=== PATIENT | male | born 1975 | race Caucasian/White ===

== ENCOUNTER 2021-07-17 13:09 | Outpatient (CLI) | payer MEDICARE, SELFPAY ==
--- NOTE | ~2021-07-17 | MR_ITS ---
EXAMINATION: MR lumbar spine wo con DATE: 07/17/2021 13:53 INDICATION: Low back pain. TECHNIQUE: Magnetic resonance imaging (MRI) of the lumbar spine was performed without intravenous con trast. Sequences included sagittal T2-weighted FSE, sagittal T2-weighted FS FSE, sagittal T1-weighted FSE, and axial T2-weighted FSE. COMPARISON: Lumbar spine radiographs 11/05/2017 FINDINGS: There is 18 degrees levoscoliosis of lumbar spine. There is 4 mm anterolisthesis of L3 on L 4. There is mild chronic anterior wedging of T12 vertebral body. There are Schmorl's nodes in the inf erior endplates of T11 and T12. There is severely decreased disc height at L3-L4 with mild chronic he ight loss of L3 and L4 vertebral bodies. There is severely decreased disc height at L5-S1 with endpla te remodeling. The distal spinal cord signal intensity is normal. The conus medullaris is at L1. The following disc levels are specifically discussed: L1-L2: There is a left foraminal protrusion. There is mild bilateral facet joint osteoarthritis. Ther e is mild left neural foraminal stenosis. There is no central canal stenosis. L2-L3: The disc is mildly bulging. There is mild bilateral facet joint osteoarthritis. There is mild bilateral neural foraminal stenosis. There is no central canal stenosis. L3-L4: The disc is bulging and has an annular fissure. There is severe right and moderate left facet joint osteoarthritis. There is severe right and moderate left neural foraminal stenosis. There is mil d central canal stenosis. L4-L5: The disc is bulging and has an annular fissure. There is mild bilateral facet joint osteoarthr itis. There is mild right and moderate left neural foraminal stenosis. There is mild central canal st enosis. L5-S1: The disc is bulging and has an annular fissure. There is severe bilateral facet joint osteoart hritis. There is mild right and moderate left neural foraminal stenosis. There is mild central canal stenosis. IMPRESSION: 1. Severe lumbar spondylosis, worsened from 11/05/2017. Reviewed, dictated and finalized at location A. 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
== END 2021-07-17 13:10 ==
PROVIDERS: PCP Family Medicine; Visit Provider Nurse Practitioner Family
DX: M47.896 Other spondylosis, lumbar region (principal)
CPT/HCPCS: 72148

== ENCOUNTER 2022-01-13 13:28 | Outpatient (CLI) | payer MEDICARE, MEDICAID, SELFPAY ==
--- NOTE | ~2022-01-13 | PE_ITS ---
EXAMINATION: PET skull to mid thigh DATE: 01/13/2022 15:31 INDICATION: Lung nodule. TECHNIQUE: Blood glucose level was 185 mg/dL. 10.547 mCi of 18-fluorodeoxyglucose (18-FDG) was admini stered i.v. Low dose computed tomography (CT) images were acquired from the base of the brain to the proximal thighs for attenuation correction and anatomic localization. Positron emission tomography (P ET) images were acquired in the same distribution beginning 68 minutes after injection. Images includ ing fused PET/CT images were reconstructed in axial, coronal, and sagittal planes. Automated exposure control technique was employed. The dose-length product was 966.27mGy-cm. COMPARISON: Chest CT dated 05/27/2018 FINDINGS: Head/neck: There is symmetric increased activity in the oral cavity, laryngeal muscles and ocular muscles withou t CT correlate, likely physiologic. There is extensive muscular activity without radiologic correlate in the neck, extremities and in the thoracic and lumbar paraspinal musculature. The latter demonstra orestes some asymmetry which is likely related to a mild lumbar levoscoliosis. No pathologically enlarged cervical lymphadenopathy or suspicious foci of increased FDG uptake in the visualized head or neck. Chest: Moderate emphysema. No suspicious pulmonary nodules, pneumonia, pulmonary edema or pleural effusion. Heart size is normal. No pericardial effusion. Right internal jugular central venous port catheter wi th distal tip in the high right atrium. No pathologically enlarged or FDG avid thoracic lymphadenopat hy. Abdomen/pelvis/proximal thighs: Physiologic renal accumulation and excretion of FDG activity in the kidneys, bladder and along portio ns of ureters. Normal degree and heterogenous pattern of increased uptake throughout the liver withou t radiologic correlate or dominant FDG avid lesion. The gallbladder, pancreas, spleen and bilateral a drenal glands are normal. Minimal uptake scattered throughout the bowels without radiologic correlate , also likely physiologic. No other abnormal foci of increased FDG uptake or pathologically enlarged lymphadenopathy in the abdomen, pelvis or proximal thighs. Musculoskeletal: Extensive likely physiologic muscular activity as previously noted. Severe lumbar spondylosis with pr ominent degenerative endplate changes at L3-L4 and L5-S1. Chronic nonunited sternal fracture. No susp icious lytic, blastic or FDG avid bone lesions. IMPRESSION: 1. No suspicious pulmonary nodules or FDG avid lesions suspicious for malignancy. Reviewed, dictated and finalized at location A. IMPRESSION: 1. No suspicious pulmonary nodules or FDG avid lesions suspicious for malignanc y.
[2022-01-13 14:00] LABS: Glucose Point of Care 185 mg/dl (65-105)
== END 2022-01-13 13:29 | disposition home or self-care (01) ==
PROVIDERS: PCP Family Medicine; Visit Provider Nurse Practitioner
DX: R91.1 Solitary pulmonary nodule (principal)
CPT/HCPCS: 78815; A9552

== ENCOUNTER 2024-01-31 13:43 | Outpatient (CLI) | payer MEDICARE, MEDICAID, SELFPAY ==
--- NOTE | ~2024-01-31 | XR_ITS ---
EXAMINATION: XR shoulder LT min 2V DATE: 01/31/2024 14:06 INDICATION: Left shoulder pain. TECHNIQUE: 4 views of left shoulder were obtained. COMPARISON: None. FINDINGS: Alignment is normal. No fracture. There is severe osteoarthritis of glenohumeral joint. Acr omioclavicular joint is normal. A left chest pacer is noted. Median sternotomy wires are noted. IMPRESSION: 1. Severe osteoarthritis of glenohumeral joint. Reviewed, dictated and finalized at location A.
== END 2024-01-31 13:44 | disposition home or self-care (01) ==
DX: M19.012 Primary osteoarthritis, left shoulder (principal)
CPT/HCPCS: 73030

== ENCOUNTER 2024-09-18 14:59 | Emergency (ER) | payer MEDICARE, MEDICAID, SELFPAY ==
[2024-09-18 15:01] VITALS: BP 102/75; PULSE 76; RESP 12; TEMP 36.7; O2SAT 96
--- NOTE | 2024-09-18 15:08 | ECG_ITS ---
Test Date: 2024-09-18 15:14:11 Measurements Intervals [place] Rate: P: 0 OR: 0 QRS: 0 QRSD: 0 T: 0 QT: 0 QTc: 0 Interpretive Statements SINUS RHYTHM CONSIDER INFERIOR INFARCT, AGE INDETERMINATE BORDERLINE T WAVE ABNORMALITY- ANTERIOR LEADS BASELINE ARTIFACT- I, II, AVR, AVL ABNORMAL ECG No previous ECG available for comparison Electronically Signed On 09-18-2024 16:57:20 CDT by Payam Aguilera D.O.
--- NOTE | 2024-09-18 15:24 | PC.NURSE ---
Pt declined to be seen due to Im not in AFIB, so I dont need to be here. Pt had parents pick him up. Pt out via w/c to car. IV removed as requested.
--- OUTSIDE RECORDS SUMMARY | 2024-09-18 17:09 | XMS_ITS | Patient Health Record ---
Author Organization [facility] Address [address] [facility] [address] [facility] [address] [place] [address] Care Team Providers Care Learning Operations Specialist Name Role Phone Manohar Porter Unavailable [phone] REASON FOR REFERRAL No Information MEDICATIONS Medication SIG (Take, Route, Fr equency, Duration) Notes Start Date End Date Status Sodium Chloride 1 GM TAKE 3 TABLETS BY M OUT THREE TIMES DAILY for 41 Active Lasix 20 MG 1 tablet Orally Once a day for 90 day(s) 10/15/2023 Active Synthroid 100 MCG 1 tablet in the morn ing on an empty stomach Orally Once a day for 90 days 06/18/2023 Active SOCIAL HISTORY Sex Assigned At : Social History Observation Description Sex Assigned At Male PROBLEMS Problem Type ICD Code Onset Dates Problem Status W/U Status Risk SNOMED Code Notes Problem Hypo-osmolality and hyponatremia (E87.1) Active confirmed Hypo-osmolality and or hyponatremia (930902120) Problem Anxiety disorder, unspecified (F41.9) Active confirmed Anxiety disorde r (972209933) Problem Chronic kidney disease, stage 1 (N18.1) Active confirmed Chronic kidney disease stage 1 (936608483) Problem Edema, unspecified (R60.9) Active confirmed Edema (09632310) Problem Other proteinuria (R80.8) Active confirmed Proteinuria (75535174) Encounters Encounter Location Date Provider Diagnosis [facility] [address] [address] 10/15/2023 Manohar Porter Hypo-osmolality and hyponatremia E87.1 ; Anxiety disorder, unspecified F41.9 ; Edema, unspecified R60.9 and Other proteinuria R80.8 [facility] [address] [address] 01/19/2024 Manohar Porter [facility] [address] [facility] [address] [place] [address] 01/21/2024 Manohar Porter Hypo-osmolality and hyponatremia E87.1 ; Chronic kidney disease, stage 1 N18.1 ; Anemia, unspecified D64.9 ; Anxiety disorder, unspecified F41.9 ; Edema, unspecified R60.9 and Other proteinuria R80.8 [facility] [address] [place] [address] 02/24/2024 Manohar Porter [facility] [address] [address] 02/25/2024 Manohar Porter [facility] [address] [address] 03/10/2024 Manohar Porter [facility] [address] [address] 10/15/2023 Manohar Porter ASSESSMENTS Encounter Date Diagnosis Assessment Notes Treatment Notes Treatment Clinical Notes Section Notes 10/15/2023 Hypo-osmolality and hyponatremia (ICD-10 - E87.1) 01/21/2024 Hypo-osmolality and hyponatremia (ICD-10 - E87.1) 01/21/2024 Chronic kidney disease, stage 1 (ICD-10 - N18.1) 01/21/2024 Anemia, unspecified (ICD-10 - D64.9) 10/15/2023 Anxiety disorder, unspecified (ICD-10 - F41.9) 10/15/2023 Edema, unspecified (ICD-10 - R60.9) 01/21/2024 Anxiety disorder, unspecified (ICD-10 - F41.9) 01/21/2024 Edema, unspecified (ICD-10 - R60.9) 10/15/2023 Other proteinuria (ICD-10 - R80.8) 01/21/2024 Other proteinuria (ICD-10 - R80.8) PLAN OF TREATMENT No Information
--- OUTSIDE RECORDS SUMMARY | 2024-09-18 17:09 | XMS_ITS ---
Author Organization [facility] Address [address] [place] [address] Care Team Providers Care Coach Name Role Phone Manohar Porter Unavailable [phone] SOCIAL HISTORY Sex Assigned At : Social History Observation Description Sex Assigned At Male Encounters Encounter Location Date Provider Diagnosis [facility] [address] [place] [address] [address] [place] [address] 02/25/2024 Manohar Porter PLAN OF TREATMENT No Information Progress Notes * Jd ENRIQUEZDOB: [birth year] (49 yo M)Acc No.[id number]:02/25/2024 Progress Notes Patient: Jd ENRIQUEZ Provider: MD DYAN, Dianne.Rosa.C.P, F.A.S.N. :1975 Age:49 Y Sex:Male Date:02/25/2024 Address:[address] [place] [address] Subjective: * Chief Complaints: * * Medical History: Objective: Assessment: Plan: * Treatment: * Billing Information: * Visit Code: * Procedure Codes: * Sign off status: Pending * Provider: MD DYAN, Dianne.Rosa.C.P, F.A.S.N. Date: 02/25/2024
--- OUTSIDE RECORDS SUMMARY | 2024-09-18 17:09 | XMS_ITS | Clinical Summary ---
Author Organization [facility] Address [address] [place] [address] Care Team Providers Care Lace Sewer Name Role Phone Ascencion Crandall NP Primary Care Provider [phone] Mable Castaneda MD Unavailable [phone] Haim Clement MD Unavailable Miguel Jara MD, Sunil P. Unavailable [phone] Rui Brizuela MD Unavailable Eddi Jiménez NP Unavailable Allergies Active Allergy Reactions Criticality Noted Date Comments Baclofen Muscle pain Medium 04/30/2022 Bupropion Anxiety Low 11/13/2010 Buspirone Rash Medium 09/02/2020 Carisoprodol Mental status changes,Unknown Low 11/13/2010 sedated Celecoxib Nausea And Vomiting 11/13/2010 Phenytoin Rash Medium 05/12/2021 Lamotrigine Hives Medium 08/07/2020 Naproxen Nausea And Vomiting 11/13/2010 Gabapentin Other (See comments) Low 08/07/2020 Patient was out of it/drooled Nsaids (Non-Steroidal Anti-Inflammatory Drug) Stomach upset,Nausea And Vomiting,Unknown Low 11/13/2010 Phenobarbital Other (See comments) Low 06/18/2022 Tramadol Headache Low 11/13/2010 Varenicline Mental status changes Low 11/13/2010 suicidal Medications Viibryd 40 mg tabletIndicatio ns:major depressive disorder Take 1 tablet by mouth daily 07/26/19 21 Active ziprasidone (GEODON) 80 mg capsuleIndicati ons:Depression Treatment Adjunct Take 1 capsule by mouth 2 (two) times a day with meals 07/26/19 21 Active vitamin B complex capsule Take 1 capsule by mouth daily Active esomeprazole DR (NexIUM) 40 mg capsuleIndicati ons:Treatment of Non-Bleeding Gastric Disorder Take 1 capsule by mouth daily before breakfast Active calcium carbonate (TUMS) 500 mg (200 mg elemental) chewable tablet Take 2 tablet/chew tab (1,000 mg total) by mouth every 4 (four) hours as needed (gas pain) Active acetaminophen (TYLENOL) 325 mg tablet Take 2 tablets (650 mg total) by mouth every 6 (six) hours as needed for pain or fever (mild pain: -07/31) Active albuterol 2.5 mg /3 mL (0.083 %) nebulizer solution 04/10/20 22 Active albuterol HFA (PROVENTIL HFA,VENTOLIN HFA,PROAIR HFA) 90 mcg/actuation inhalerIndicati ons:Chronic Obstructive Pulmonary Disease 2 puffs 3 times day PRN 06/26/19 25 Active atorvastatin (LIPITOR) 10 mg tabletIndicatio ns:hyperlipidem ia atorvastatin 10 mg tablet Take 1 tablet every day by oral route for 90 days. Active vitamin E 100 unit/0.25 mL dropsIndication s:Vitamin E Deficiency Apply 1 drop topically daily Active OneTouch Verio Flex meter [facility] 05/29/19 23 Active cholecalciferol (VITAMIN D-3) 5,000 unit capsuleIndicati ons:Vitamin D Deficiency Take 5,000 Units by mouth daily Active OneTouch Delica Plus Lancet 33 gauge [facility] 05/29/19 23 Active triamcinolone (KENALOG) 0.1 % cream Active morphine ER (MS CONTIN) 15 mg 12 hr tabletIndicatio ns:severe chronic pain requiring long-term opioid treatment Take 1 tablet (15 mg total) by mouth 2 (two) times a day 6 tablet 06/25/19 23 Active apixaban (ELIQUIS) 5 mg tabletIndicatio ns:atrial fibrillation Take 1 tablet (5 mg total) by mouth every 12 (twelve) hours 06/25/19 Active sodium chloride 1 gram tablet Take 1 tablet (1 g total) by mouth 3 (three) times a day with meals 06/25/19 Active Additional Information Patient taking differently: 3 goral 3 times daily with meals, Reported on 05/09/2024 senna (SENOKOT) 8.6 mg tabletIndicatio ns:constipation Take 1 tablet by mouth 2 (two) times a day 06/25/19 23 Active docusate sodium (COLACE) 100 mg capsuleIndicati ons:constipatio n Take 1 capsule (100 mg total) by mouth 2 (two) times a day 06/25/19 23 Active metoprolol tartrate (LOPRESSOR) 25 mg immediate release tablet Take 0.5 tablets (12.5 mg total) by mouth 2 (two) times a day 06/25/19 23 Active clonazePAM (KlonoPIN) 1 mg tabletIndicatio ns:atonic seizure,Essenti al Tremor Take 1 tablet by mouth 3 (three) times a day 02/08/20 Active budesonide-glyc opyr-formoterol 160-9-4.8 mcg/actuation HFA aerosol inhalerIndicati ons:Bronchospas m Prevention with COPD INHALE 2 PUFFS BY MOUTH TWICE DAILY DIRECTED Active ocrelizumab (Ocrevus) 30 mg/mL solution Infuse 10 mL (300 mg total) into a venous catheter Active EPINEPHrine 0.3 mg/0.3 mL auto-injection syringe ADMINISTER 0.3 ML IN THE MUSCLE 1 TIME NEEDED FOR ANAPHYLAXIS 05/06/20 Active levothyroxine (Synthroid) 100 mcg tabletIndicatio ns:hypothyroidi sm Take 100 mcg by mouth video system repairer before breakfast 06/18/19 24 Active mepolizumab (Nucala) 100 mg/mL auto-injector 05/06/20 23 Active methocarbamoL (ROBAXIN) 750 mg tabletIndicatio ns:Muscle Spasm Take 1 tablet by mouth every 8 (eight) hours 12/18/19 24 Active benztropine (COGENTIN) 0.5 mg tabletIndicatio ns:tremors Take 1 tablet by mouth 2 (two) times a day 04/07/20 24 Active eslicarbazepine (Aptiom) 200 mg tabletIndicatio ns:Focal Epilepsy Take 1 tablet (200 mg total) by mouth daily 90 tablet 3 05/22/20 24 Active lacosamide (VIMPAT) 150 mg tabletIndicatio ns:Status Epilepticus Take 1 tablet (150 mg total) by mouth 2 (two) times a day 180 tablet 3 05/22/20 24 Active pregabalin (LYRICA) 100 mg capsuleIndicati ons:Postherpeti c Neuralgia TAKE 2 CAPSULES EVERY MORNING TAKE 2 CAPSULES IN THE AFTERNOON, AND TAKE 2 CAPSULES AT NIGHT 180 capsule 5 06/22/19 25 Active metoprolol tartrate (LOPRESSOR) 25 mg immediate release tabletIndicatio ns:hypertension Take 12.5 mg by mouth 2 (two) times a day. Indications: high blood pressure Active sodium chloride 1 gram tabletIndicatio ns:hyponatremia Take 3 g by mouth 3 (three) times a day. Indications: hyponatremia Active modafiniL (PROVIGIL) 100 mg tablet TAKE 1 TABLET(100 MG) BY MOUTH DAILY 30 tablet 2 09/12/19 25 Active modafiniL (PROVIGIL) 100 mg tablet Take 1 tablet (100 mg total) by mouth daily 30 tablet 08/16/19 25 2024 Discontinued Active Problems Problem Noted Date Diagnosed Date Left shoulder pain 02/16/2024 Assessment & Plan (02/16/2024 12:57 PM CDT): Patient with left shoulder pain over last couple of months that radiates down to his left hand. Exam is notable for increased cracking with movement of his left shoulder. He reportedly underwent x-rays as an outpatient for further evaluation with no definitive etiology found. Suspect underlying osteoarthritis contributing to his symptoms. Referral to Orthopedic surgery for further evaluation. Aftercare following surgery of the circulatory s ystem 07/08/2022 Status post aortic valve replacement 07/08/2022 Status post mitral valve repair 07/08/2022 Mild protein-calorie malnutrition 06/08/2022 Endocarditis 06/05/2022 Complex partial seizures jasson 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-clonic seizures 11/28/2021 Assessment & Plan (02/16/2024 12:55 PM CDT): Patient with underlying seizure disorder. He is currently on Vimpat 150 mg b.i.d. and Aptiom 200 mg every other day. He reports good control of the seizures and has not had a seizure in a number of years. Multiple sclerosis 08/07/2020 Assessment & Plan (05/09/2024 4:57 PM GUIDE TOUR): The patient is presenting for follow up of his multiple sclerosis. He continues to report ongoing symptoms similar to his last visit. Specifically his most prominent symptom is fatigue and generalized weakness. He was brain MRI demonstrates an enhancing lesion within his left temporal lobe. We discussed initiating treatment for his MS to help with the inflammation. The patient is agreeable to starting a medication. Given his prior history of endocarditis he was at risk for infections and therefore recommended Vumerity as an option given its better side effect profile for infections. I will provide the patient with a pamphlet on this medication and have him fill out paperwork to start. We discussed the possible side effects including flushing and GI upset. I counseled him to take aspirin 10 minutes before the Vumerity if he notices flushing to help with that side effect. The patient has an upcoming appointment planned with Orthopedic surgery for evaluation for left shoulder surgery. Patient was referred to physical therapy for further evaluation of his weakness. However, he has been having difficulties obtaining a ride to [facility]. We will reach out to our home health team to see if we can coordinate home physical therapy for him given his difficulty with logistics. Assessment & Plan (02/16/2024 12:54 PM CDT): Patient presenting for further evaluation of his multiple sclerosis. He was diagnosed in 2005 with his initial symptoms consisting of fatigue. He was treated with Copaxone Rebif for a period of time and more recently was on Ocrevus. His symptoms over time have consisted of progressive difficulty with walking, severe pain in his bilateral lower and upper extremities, muscle spasms, and headaches. Most recent brain MRI in February 2023 demonstrated a possible enhancing lesion of cerebellum although difficult to determine on personal review given motion artifact. We will obtain a repeat brain, cervical, and thoracic MRI for further evaluation. Patient will need these to be coordinated with our Cardiology team given his pacemaker. We will refer the patient to physical therapy for further management of his weakness. Spasticity 08/07/2020 Radiculopathy, lumbosacral region 08/07/2020 Chronic bilateral low back pain with bilateral s ciatica 08/07/2020 Spinal stenosis of lumbar re gion without neurogenic claudication 08/07/2020 Sacroiliitis 08/07/2020 Long-term current use of opiate analgesic 2020 Neuropathy 09/19/2019 Assessment & Plan (05/09/2024 4:57 PM GUIDE TOUR): The patient has chronic pain in his bilateral lower extremities and left upper extremity. Previously prescribed Lyrica 200 mg 3 times a day which he finds beneficial. We will continue this medication. Assessment & Plan (02/16/2024 12:57 PM CDT): Patient with longstanding chronic pain in his bilateral lower extremities left upper extremity. He has trialed multiple medications in the past and is currently on pregabalin 100 mg t.i.d. and MS Contin b.i.d. 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 MRI of his lumbar spine demonstrates degenerative disc disease with neuroforaminal stenosis. We will refer the patient for further evaluation by our pain management team. We will also increase his pregabalin to 200 mg in the morning, 100 mg at lunch, and 200 mg at night for ongoing pain control. We will also obtain blood work to evaluate for other causes of peripheral neuropathy. Encounters Date Type Department Care Team Description 09/04/2024 Telephone [facility] [address] [place] [phone] Michaela Lynch RN 08/16/2024 Telephone [facility] [address] [place] [phone] Jerri Segura LPN 08/16/2024 Telephone [facility] [address] [place] [phone] Cresencio Shrestha MD Med Management (Modafinil 100mg) 08/15/2024 Telephone [facility] [address] [place] [phone] Jerri Segura LPN 08/02/2024 12:00 PM CDT Home Care Visit [address] [place] [address] Marie Pleitez, PT PT OASIS DISCHARGE 08/01/2024 Orders Only [facility] ADMIT [address] [place], [place] [id number] Samina Ruby MD 08/01/[address] [place] [address] Radha Severino RN 07/27/2024 1:30 PM GUIDE TOUR Home Care Visit [address] [place] [address] Jennifer Brewer, OT OT REASSESSMENT 07/27/2024 Home Care Visit [address] [place] [address] Harvinder Neil, DRAG CAR RACER CASE COMMUNICATION 07/26/2024 Orders Only [facility] [address] [place] [address] Cresencio Shrestha MD 07/24/2024 12:30 PM GUIDE TOUR Home Care Visit [address] [place] [address] Marie Pleitez, PT PT HOME VISIT 07/21/2024 Home Care Visit [address] [place] [address] Rosina Latham, OT CASE COMMUNICATION 07/18/2024 Home Care Visit [address] [place] [address] Rosina Latham, OT CASE COMMUNICATION 07/17/2024 1:15 PM GUIDE TOUR Home Care Visit [address] [place] [address] Marie Pleitez, PT PT REASSESSMENT 07/13/2024 Home Care Visit [address] [place] [address] Rosina Latham, OT CASE COMMUNICATION 07/12/2024 Home Care Visit [address] [place] [address] Marie Pleitez, PT TELEPHONE ENCOUNTER 07/07/2024 10:45 AM GUIDE TOUR Home Care Visit [address] [place] [address] Marie Pleitez, PT PT HOME VISIT 07/06/2024 1:15 PM GUIDE TOUR Home Care Visit [address] [place] [address] Annel Colindres COTA OT HOME VISIT 07/03/2024 1:00 PM GUIDE TOUR Home Care Visit [address] [place] [address] Marie Pleitez, PT PT HOME VISIT 06/30/2024 3:00 PM GUIDE TOUR Home Care Visit [address] [place] [address] Rosina Latham, OT OT HOME VISIT 06/30/2024 1:15 PM GUIDE TOUR Home Care Visit [address] [place] [address] Marie Pleitez, PT PT HOME VISIT 06/28/2024 12:30 PM GUIDE TOUR Home Care Visit [address] [place] [address] Marie Pleitez, PT PT HOME VISIT 06/27/2024 2:30 PM GUIDE TOUR Home Care Visit [address] [place] [address] Harvinder Neil [facility] TUBE COREMAKER INITIAL EVAL 06/27/2024 Home Care Visit [address] [place] [address] Harvinder Neil [facility] TUBE COREMAKER DISCIPLINE DISCHARGE 06/26/2024 Home Care Visit [address] [place] [address] Mary Yu, ZAY NURSE MED RECON FOR THERAPY 06/24/2024 Home Care Visit [address] [place] [address] Harvinder Neil DRAG CAR RACER CASE COMMUNICATION 06/23/2024 2:00 PM GUIDE TOUR Home Care Visit [address] [place] [address] Rosina Latham, OT OT INITIAL EVALUATION 06/23/2024 Home Care Visit [address] [place] [address] Rosina Latham, OT CASE COMMUNICATION 06/22/2024 1:00 PM GUIDE TOUR Home Care Visit [address] [place] [address] Marie Pleitez, PT PT OASIS START OF CARE 06/22/2024 Home Care Visit [address] [place] [address] Marie Pleitez, PT TELEPHONE ENCOUNTER 06/22/2024 Plan of Care Documentation [address] [place] [address] 06/21/2024 Telephone [facility] [address] [place] [address] Jolene Ford RP 06/20/2024 Home Care Visit [facility] [address] [place] [id number] Marie Pleitez, PT TELEPHONE ENCOUNTER from Last 3 Months Immunizations Immunization Administration Dates Next Due Hep A, Adult 11/21/1989,05/24/1989 Hep B, Adolescent or Pediatric 11/21/1992,1992,05/24/1992 Influenza, Quadrivalent, Spl it, Intramuscular 02/21/2021,03/06/2018 [employer] ([employer]) SARS-CoV-2 Vaccination 07/30/2020 Pneumococcal Conjugate PCV 13 02/21/2020 Pneumococcal Polysaccharide PPV23 02/25/2021 Pneumococcal, Unspecified 03/22/2018 Td, Unspecified 10/22/2004 Surgical History Surgery Date Site/Laterality Comments AORTIC VALVE REPLACEMENT 06/09/2022 Aortic valve replacement, mitral valve repair MITRAL VALVE REPLACEMENT PORT PLACEMENT CHEST >5 YEARS 12/04/2021 N/A PORT PLACEMENT CHEST >5 YEARS 12/01/2021 N/A FL FLUORO GUIDED LUMBAR PUNCTURE 06/23/2023 Right Medical History Medical History Date Comments Epilepsy (HCC) MS (multiple sclerosis) (HCC) Neuropathy Lung disease Type 2 diabetes mellitus (HCC) Social History Tobacco Use Types Packs/Day Years Used Date Smoking Tobacco: Never Smokeless Tobacco: Never Tobacco Cessation:Counseling Given: Not Answered OASIS D0700: Social Isolation Answer Da te Recorded Frequency of experiencing loneliness or isolatio n Rarely 08/02/2024 OASIS A1250: Transportation Answer Date Recorded Lack of Transportation (Medical) No 08/02/2024 Lack of Transportation (Non-Medical) No 08/02/2024 Patient Unable or Declines to Respond No 08/02/2024 OASIS B1300: Health Literacy Answer Nabeel e Recorded Frequency of needing help to read materials from doctor or pharmacy Sometimes 08/02/2024 Social Connection and Isolat ion Panel [NHANES] Answer Date Recorded In a typical week, how many times do you talk on the phone with family, friends, or neighbors? More than three times a week 06/08/2022 How often do you get togethe r with friends or relatives? More than three times a week 06/08/2022 How often do you attend [facility] or rastafarian services? 1 to 4 times per year 06/08/2022 Do you belong to any clubs o r organizations such as pentecostalism groups, unions, fraternal or athletic groups, or school groups? No 06/08/2022 How often do you attend meet ings of the clubs or organizations you belong to? Never 06/08/2022 Are you , , di vorced, , never , or living with a partner? 06/08/2022 Overall Financial Resource Strain (CARDIA) Answe r Date Recorded How hard is it for you to pa y for the very basics like food, housing, medical care, and heating? Not very hard 06/08/2022 Hunger Vital Sign Answer Date Recorded Within the past 12 months, y ou worried that your food would run out before you got the money to buy more. Never true 06/08/19 23 Within the past 12 months, t he food you bought just didn't last and you didn't have money to get more. Never true 06/08/2022 PRAPARE - Transportation Answer Date Re corded In the past 12 months, has l ack of transportation kept you from medical appointments or from getting medications? No 05/24 In the past 12 months, has l ack of transportation kept you from meetings, work, or from getting things needed for daily living? No 06/08/2022 Personal Safety Answer Date Recorded Have you ever been in or are you currently in a harmful physical or emotional relationship or is someone making you feel afraid or unsafe? Denies 06/23/2023 Sex and Gender Information Value Date Recorded Sex Assigned at Not on file Legal Sex Male 7:00 AM GUIDE TOUR Gender Identity Not on file Sexual Orientation Not on file Obstetrics History Last Filed Vital Signs Vital Sign Reading Time Taken Comments Blood Pressure 124/78 07/27/2024 1:47 PM GUIDE TOUR Pulse 78 07/27/2024 1:47 PM GUIDE TOUR Temperature 37.4 C (99.3 F) 07/27/2024 1:47 PM GUIDE TOUR Respiratory Rate 18 07/27/2024 1:47 PM GUIDE TOUR Oxygen Saturation 97% 07/27/2024 1:47 PM GUIDE TOUR Inhaled Oxygen Concentration - - Weight 71.2 kg (157 lb) 05/09/2024 3:24 PM GUIDE TOUR Height 175.3 cm (5' 9.02 ) 05/22/2024 10:[address] Body Mass Index 23.18 05/09/2024 3:24 PM GUIDE TOUR Plan of Treatment Health Maintenance Due Date Last Done Comments Albumin Creatinine Ratio, Urine 1973 Colon Cancer Screening-Colonoscopy 1973 Depression Screening 1973 Prostate Cancer Screening-PSA 1973 Dilated Eye Exam 1973 Foot Exam 1973 Regular Well Visit/Exam 18-64 1991 DTaP/Tdap/Td Vaccine (1 - Tdap) 10/23/2004 5 Hemoglobin A1C 12/04/2022 06/06/2022 Lipid Panel 06/07/2023 06/07/2022 Covid-19 Vaccine (4 - 2023-2 5 season) 2024 11/13/2021, 03/18/2021, 07/30/2020 Lung Cancer Screening 01/20/2025 01/20/2024 Influenza Vaccine (Season Ended) 2025 03/17/2023, 02/21/2021, 02/08/2020, Additional history exists eGFR 05/10/2025 05/10/2024, 02/0 06/2022, 06/25/2022, Additional history exists Pneumococcal vaccine <65 (3 of 3 - PCV20 or PCV21) 02/25/2026 02/25/2021, 02/21/2020, 03/22/2018, Additional history exists Hepatitis B Screening Completed 11/21/1992 , 06/24/1992, 05/24/1992 Zoster Vaccine Completed 07/25/2023, 05/11/2023 Hepatitis C Screening Completed 05/10/2024 Medical Devices Implanted Type Area Ship'S Electronic Warfare Officer Device Identifier Shelf Expiration Date Model / Serial / Lot [employer] Solia S 53cm Steroid Elute Bipolar Active Fixation Endocardial [id number] - [id number] - [id number] Implanted:Qty: 1 on 06/15/2022 by Sunil Rivera Jr., MD at [facility] Lead Right: Ventricle [employer] [id number] 05/23/2024 [id number] / [id number] / [employer] Solia S 45cm Bipolar Active Fixation Lead Pacing Steroid Eluting [id number] - [id number] - [id number] Implanted:Qty: 1 on 06/15/2022 by Sunil Rivera Jr., MD at [facility] Lead Right: Atria [employer] [id number] 03/23/2024 [id number] / [id number] / [employer] Edora Promri 23l33g6.5mm Dual Chamber Rate Adaptive Unipolar Bipolar [id number] - [id number] - [id number] Implanted:Qty: 1 on 06/15/2022 by Sunil Rivera Jr., MD at [facility] Pacemaker Left: Chest Wall [employer] Inc [id number] 10/22/2023 [id number] / [id number] / [employer] Inspiris Resilia Leaflet Aortic Valve 25mm [id number] - [id number] - [id number] Implanted:Qty: 1 on 06/09/2022 by Rui Brizuela MD at [facility] N/A: Heart [employer] 06/11/2025 [id number] / [id number] / Explanted Type Area Ship'S Electronic Warfare Officer Device Identifier Shelf Expiration Date Model / Serial / Lot [employer] Weck Horizon 6 Cartridge Ligate Triangulate Cross Section Heart [id number] - [id number] Explanted:Qty: 1 on 06/09/2022 at [facility] N/A: Chest [employer] [id number] / / Procedures Procedure Name Priority Date/Time Associated Diagnosis Comments HEPATITIS PANEL, ACUTE Routine 05/10/2024 12:31 PM GUIDE TOUR Multiple sclerosis (HCC) COMPREHENSIVE METABOLIC PANEL Routine 05/10/2024 12:31 PM GUIDE TOUR Multiple sclerosis (HCC) CT LUNG CANCER SCREENING Schedule Routine, Read Routine (OP Routine) 01/20/2024 8:36 AM CDT Personal history of nicotine dependence LIPID PANEL Timed 06/07/2022 3:54 AM GUIDE TOUR HEMOGLOBIN A1C Routine 06/06/2022 12:38 AM GUIDE TOUR from Last 3 Months or Most Recently Relevant to Health Maintenance Results * Hepatitis panel, acute Blood (05/10/2024 12:31 PM GUIDE TOUR) Hep A IgM NON-REACTI VE NON-REACT CODY [facility] Comment: For additional information, please refer to http://[employer]/faq/ERG817 (This link is being provided for informational/ educational purposes only.) HepBsAg NON-REACTI VE NON-REACT CODY [facility] Comment: For additional information, please refer to http://[employer]/faq/VKR149 (This link is being provided for informational/ educational purposes only.) Hep B core IgM NON-REACTI VE NON-REACT CODY [facility] Comment: For additional information, please refer to http://[employer]/faq/VVR017 (This link is being provided for informational/ educational purposes only.) Hep C Ab NON-REACTI VE NON-REACT CODY [facility] Comment: HCV antibody was non-reactive. There is no laboratory evidence of HCV infection. In most cases, no further action is required. However, if recent HCV exposure is suspected, a test for HCV RNA (test code 95764) is suggested. For additional information please refer to http://[employer]/faq/VUQ00s7 (This link is being provided for informational/ educational purposes only.) Blood 05/10/2024 12:3 1 PM GUIDE TOUR 05/10/2024 12:32 PM GUIDE TOUR us Cresencio Shrestha MD LAB MICROBIOLOGY - NERAL ORDERABLES Final Result [facility] [address] [address] * (ABNORMAL) Comprehensive metabolic panel (05/10/2024 12:31 PM GUIDE TOUR) Glucose 85 65 - 99 mg/dL [facility] Comment: Fasting reference interval BUN 6(L) 7 - 25 mg/dL [facility] Creatinine 0.66(L) 0.70 - 1.30 mg/dL [facility] eGFR 114 > OR = 60 mL/min/1.7 3m2 [facility] BUN/creat ratio 9 6 - 22 (calc) [facility] Sodium 143 135 - 146 mmol/L [facility] Potassium, pl 4.4 3.5 - 5.3 mmol/L [facility] Chloride 106 98 - 110 mmol/L [facility] CO2 30 20 - 32 mmol/L [facility] Calcium 9.5 8.6 - 10.3 mg/dL [facility] Protein, sr 6.3 6.1 - 8.1 g/dL [facility] Albumin 4.0 3.6 - 5.1 g/dL [facility] GLOBULIN 2.3 1.9 - 3.7 g/dL (calc) [facility] Alb/glob ratio 1.7 1.0 - 2.5 (calc) Lou ChenKe Hager Bilirubin, total 0.5 0.2 - 1.2 mg/dL Lou ChenKe Hager Alk phos 107 35 - 144 U/L Lou ChenKe Hager AST 14 10 - 35 U/L [facility] ALT (SGPT) 13 9 - 46 U/L [facility] Blood 05/10/2024 12:3 1 PM GUIDE TOUR 05/10/2024 12:32 PM GUIDE TOUR us Cresencio Shrestha MD LAB BLOOD ORDERABLES Final Result [facility] [address] [place] [address] * CT Lung Cancer Screening (01/20/2024 8:36 AM CDT) Anatomical Region Laterality Modality Chest N/A Computed Tomogra phy 01/20/2024 9:19 AM CDT Impressions 01/20/2024 3:31 PM CDT LungRADS Category 2 (benign)). Recommend Low dose Screening CT of chest in 12 months. LungRADS Categories: 1 - Negative (no nodules, or only benign calcified or fat-containing nodules) 2 - Benign Appearance or Behavior (nodules with very low likelihood of becoming a clinically active cancer due to size or lack of growth) 3 - Probably Benign (probably benign findings-short term follow up suggested; includes nodules with a low likelihood of becoming a clinically active cancer) 4A,4B,4X - Suspicious (category 3 or 4 nodules with findings for which additional diagnostic testing and/or tissue sampling is recommended) S - Other (clinically significant or potentially clinically significant findings (non-lung cancer) C - Prior Lung Cancer (modifier for patients with a prior diagnosis of lung cancer who return to screening) Dictated by: Edison Bang MD The radiology attending physician has personally reviewed this study, and had reviewed and/or edited this written report and agrees with it. Electronically signed by: Ralf Felder M.D. Narrative 01/20/2024 3:31 PM CDT EXAMINATION: Lung cancer screening CT of the Chest without intravenous contrast HISTORY: Lung Cancer Screening TECHNIQUE: Low radiation dose chest protocol. No intravenous contrast. Reconstructed slice width 1.[address] Dose Index 0.91 mGy. Dose-length product 36.3 mGy-cm. COMPARISON: CTA 06/07/2022 FINDINGS: Lung nodules or findings of lung cancer: 7 mm right middle lobe nodule on series 3 image 244 is unchanged. Unchanged area of linear scarring in the peripheral right upper lobe on series 3 image 186. 1.6 x 1.1 cm opacity in the peripheral right lower lobe on series 2 image 258 corresponds to an area of linear scarring on multiplanar images and are similar compared to prior. There are new tree-in-bud nodules in the anterior left lower lobe on series 2 image 260, which are likely infectious or inflammatory. Smoking related lung disease: emphysema Other findings: Left subclavian approach pacemaker leads terminating in the right atrium and right ventricle. Changes of an aortic valve replacement. No pericardial effusion. No thoracic lymphadenopathy. Limited evaluation the upper abdomen is unremarkable with anterior position of the right colon. No suspicious osseous lesion. Unchanged ununited sternum and new median sternotomy wires. us Ascencion Crandall RN HEMODIALYSIS IMG CT PROCEDURES Final Resu lt * (ABNORMAL) Lipid panel (06/07/2022 3:54 AM GUIDE TOUR) Cholesterol 124 30 - 199 mg/dL [facility] Comment: Interpretive Data Ages < or = 19 years Acceptable: <170 mg/dL Borderline high: 170-199 mg/dL High: >or= 200 mg/dL Ages > or = 20 years Desirable: <200 mg/dL Borderline high: 200-239 mg/dL High: >or= 240 mg/dL Literature References: 1. Expert Panel on Integrated Guidelines for Cardiovascular Health and Risk Reduction in Children and Adolescents. Pediatrics 2011;128:S213 2. NCEP Expert Panel. Circulation 2004;110:227 Current Interpretive Data was last revised on 2018. Triglycerides 121 <=149 mg/dL [facility] Comment: Interpretive Data Ages < or = 9 years Acceptable: <75 mg/dL Borderline high: 75-99 mg/dL High: >or= 100 mg/dL Ages 10 to 20 years Acceptable: <90 mg/dL Borderline high: 90-129 mg/dL High: >or= 130 mg/dL Ages > or = 20 years Desirable: <150 mg/dL Borderline high: 150-199 mg/dL High: 200-499 mg/dL Very high: >or= 499 mg/dL Literature References: 1. Expert Panel on Integrated Guidelines for Cardiovascular Health and Risk Reduction in Children and Adolescents. Pediatrics 2011;128:S213 2. NCEP Expert Panel. Circulation 2004;110:227 Current Interpretive Data was last revised on 2018. HDL 23(L) >=40 mg/dL [facility] Comment: Interpretive Data Ages < or = 19 years Acceptable: >45 mg/dL Borderline low: 40-45 mg/dL Low: <40 mg/dL Ages > or = 20 years Desirable: >or= 60 mg/dL Low: <40 mg/dL Literature References: 1. Expert Panel on Integrated Guidelines for Cardiovascular Health and Risk Reduction in Children and Adolescents. Pediatrics 2011;128:S213 2. NCEP Expert Panel. Circulation 2004;110:227 Current Interpretive Data was last revised on 2018. LDL, calculated 77 <=129 mg/dL [facility] Comment: Interpretive Data Ages < or = 19 years Acceptable: <110 mg/dL Borderline high: 110-129 mg/dL High: >or= 130 mg/dL Ages > or = 20 years Optimal: <100 mg/dL Near optimal: 100-129 mg/dL Borderline high: 130-159 mg/dL High: >160 mg/dL Literature References: 1. Expert Panel on Integrated Guidelines for Cardiovascular Health and Risk Reduction in Children and Adolescents. Pediatrics 2011;128:S213 2. NCEP Expert Panel. Circulation 2004;110:227 Current Interpretive Data was last revised on 2018. Non-HDL Cholesterol 101 mg/dL [facility] Comment: Interpretive Data Ages < or = 19 years Acceptable: <120 mg/dL Borderline high: 120-144 mg/dL High: >145 mg/dL Ages > or = 20 years When triglycerides are >200 mg/dL, Non-HDL cholesterol is a secondary target of therapy with treatment goals that are 30 mg/dL greater than the LDL cholesterol target. Literature References: 1. Expert Panel on Integrated Guidelines for Cardiovascular Health and Risk Reduction in Children and Adolescents. Pediatrics 2011;128:S213 2. NCEP Expert Panel. Circulation 2004;110:227 Current Interpretive Data was last revised on 2018. Chol/HDL ratio 5 [facility] Blood 06/07/2022 3:54 AM GUIDE TOUR 06/07/2022 4:04 AM GUIDE TOUR us Samina Ruby MD LAB BLOOD ORDERABLES Final Res ult [facility] [address] Department [place] [address] * (ABNORMAL) Hemoglobin A1c (06/06/2022 12:38 AM GUIDE TOUR) Hgb A1C 6.3(H) 4.0 - 5.6 % [facility] Estimated Average Glucose 134 mg/dL [facility] Comment: The ADA recommends reporting an estimated Average Glucose (eAG) with all Hemoglobin A1c results using the equation derived from a study of 507 normal and diabetic adults. Minority populations were underrepresented and children were not included. (Diabetes Care 31:5169-3085, 2008). The eAG is not equivalent to a fasting glucose. Blood 06/06/2022 12:3 8 AM GUIDE TOUR 06/06/2022 1:00 AM GUIDE TOUR us Samina Ruby MD LAB BLOOD ORDERABLES Final Res ult [facility] [address] Department [place] [address] from Last 3 Months or Most Recently Relevant to Health Maintenance Insurance [employer]PA [facility] MEDICARE ADVANTAGE IDPA [facility] MEDICARE ADVANTAGE [facility] MEDICARE ADVANTAGE IDPA Advance Directives For more information, please contact: [phone] Documents on File Type Date Recorded Patient Methods Examiner Expl anation ADVANCE DIRECTIVE 07/04/2024 9:30 AM Power of Press Tool Maker-Medical ADVANCE DIRECTIVE 08/12/2022 11:16 AM RAVI R OF 1ST PRESSMAN ON WEB PRESS-MEDICAL ADVANCE DIRECTIVE 06/08/2022 4:40 PM Power of Press Tool Maker-Medical * Full Code (Latest Code Status on File) Date Activated Date Inactivated Comments 06/23/2023 8:46 AM 06/24/2023 5:04 AM * Full Code Date Activated Date Inactivated Comments 06/15/2022 2:44 PM 06/25/2022 7:43 PM * Full Code Date Activated Date Inactivated Comments 06/08/2022 6:49 PM 06/15/2022 2:44 PM * Full Code Date Activated Date Inactivated Comments 06/06/2022 12:01 AM 06/08/2022 6:49 PM Care Teams Lace Sewer Relationship Specialty Start Date End Date Ascencion Crandall NP PCP - General Internal Medicine 09/19/21 Mable Castaneda MD [address] [place] [address] Consulting Physician Cardiovascular Disease 06/12/22 Haim Clement MD [address] [facility] [address] [place] [address] Consulting Physician Infectious Diseases 06/25/22 Sunil Rivera Jr., MD [address] [place] [address] Consulting Physician Cardiovascular Disease 06/25/22 Rui Brizuela MD [address] [place] [address] Consulting Physician Cardiothoracic Surgery 06/25/22 Edd[place] [address] [facility] [address] [place] [address] Nurse Practitioner Pain Management 03/22/24
--- OUTSIDE RECORDS SUMMARY | 2024-09-18 17:09 | XMS_ITS ---
Author Organization [facility] Address [address] [place] [address] Care Team Providers Care Recruitment And Outreach Assistant Name Role Phone CrandlalAscencion mercado Primary Care Provider UnavailJagjit Bland Unavailable [phone] Betito Tate Unavailable [phone] Allergies Allergen (clinical drug ingredient) Drug/Non Drug Allergy documented on EMR Reaction Allergy Type Onset Date Status BuSpar Unknown Drug Allergy Active celecoxib CeleBREX Unknown Drug Allergy Active phenytoin Dilantin Unknown Drug Allergy Active lamotrigine LaMICtal Unknown Drug Allergy Activ e carisoprodol Soma Unknown Drug Allergy Acti ve baclofen Baclofen Unknown Drug Allergy Active carisoprodol Carisoprodol Unknown Drug Allergy A ctive gabapentin Gabapentin Unknown Drug Allergy Activ e naproxen Naproxen Unknown Drug Allergy Active Non-steroidal anti-inflammatory agent (FN) NSAIDs Unknown Drug Allergy Active phenobarbital Phenobarbital Unknown Drug Allergy Active tramadol Tramadol Unknown Drug Allergy Active varenicline Varenicline Unknown Drug Allergy Act patricia REASON FOR VISIT meds with yokasta Medications Medication SIG (Take, Route, Frequency, Duration) Notes Start Date End Date Status MS Contin 15 MG 1 tablet Orally every 12 hrs for 30 days TBF 07-06-23 Dr. Pio Perdue ADRIEN: [id number] Active Eliquis 5 MG as directed Orally Active Lyrica 100 MG 1 capsule Orally three times a day for 30 days TB 07-06-23 Dr. Pio Perdue ADRIEN: [id number] Active Vitamin E 100 UNIT as directed Orally Active D-3-5 125 MCG (5000 UT) as directed Orally Active Gabapentin 300 MG 1 capsule Orally 1 capsule for 3 days at bedtime, then 2 capsules a day at am and pm for 3 days, then 3 capsules a day going forward for 30 day(s) 08/10/2022 Active Lyrica 100 MG 1 capsule Orally three times daily for 30 days Active Methocarbamol 500 MG 1 tablet Orally every 8 hrs as needed for 90 days Active Methocarbamol 750 MG 1 tablet Orally every 8 hrs for 30 days Active MS Contin 15 MG 1 tablet Orally every 12 hrs for 30 days 07/07/2024 Active Butrans 10 MCG/HR 1 patch to skin Transdermal every 7 days for 28 days 03/02/2022 Active NexIUM 40 MG 1 capsule Orally Once a day for 30 day(s) Active Viibryd 40 MG 1 tablet with food Orally Once a day for 30 day(s) Active Vimpat 150 MG 1 tablet Orally Twice a day Active Aptiom 200 MG 2 tablets Orally Once a day for 30 day(s) Active Lyrica 150 MG 1 capsule Orally Once a day Active Robaxin 1000 MG/10ML 10 mL as needed Injection every 8 hrs for 3 day(s) Active Geodon 80 MG 1 capsule with food Orally Twice a day for 30 day(s) Active clonazePAM 1 MG 1 tablet Orally Once a day Active Benztropine Mesylate 1 MG/ML as directed Injection Active Ocrevus 300 MG/10ML as directed Intravenous Active Albuterol Active Magnesium 250 MG 1 tablet with a meal Orally Once a day for 30 day(s) Active Zinc 50 MG 1 tablet Orally Once a day for 30 day(s) Active Social History Sex Assigned At : Social History Observation Description Sex Assigned At Male Encounters Encounter Location Date Provider Diagnosis -[facility] [address] [facility] [address] [place] [address] 08/10/2024 Betito Tate Plan Of Treatment No Information Progress Notes * Jd ENRIQUEZ JrDOB:[birth year] (49 yo M)Acc No.[id number]:08/10/2024 Progress Notes Patient: Jaden SOFIABLANKJd Jr Provider: Martha Tate :1975 A ge:49 Y S ex:Male Date:08/10/2024 [facility] Pcp:Ascencion Crandall Subjective: * Chief Complaints: * 1 . Meds with yokasta. * ROS: A complete review of 10 systems was completed and negative unless noted above in history of present illness or intake questionnaire . * Medical History: N erve damage, Anxiety, Dibetes, Chronic bronchitis, Pneumonia. * Surgical History: p lacement of port . * Hospitalization/Major Diagno stic Procedure: f or above . * Family History: F ather: unknown, diagnosed with Diabetes, Hypertension. M other: unknown, diagnosed with Cancer, Hypertension. * Social History: M arried: no. Children: no. Smoking: yes T ype: PPD: Years:. A lcohol: no. Exercise: no. Recreational drug use: no. * Medications: T aking Eliquis 5 MG Tablet as directed Orally , Taking MS Contin 15 MG Tablet Extended Release 1 tablet Orally every 12 hrs , Notes to Pharmacist: LEANN 07-06-23 Dr. Pio Perdue ADRIEN: [id number], Taking Lyrica 100 MG Capsule 1 capsule Orally three times a day , Notes to Pharmacist: [facility] 07-06-23 Dr. Pio Perdue ADRIEN: [id number], Taking D-3-5 125 MCG (5000 UT) Capsule as directed Orally , Taking Vitamin E 100 UNIT Capsule as directed Orally , Taking Zinc 50 MG Tablet 1 tablet Orally Once a day , Taking Magnesium 250 MG Tablet 1 tablet with a meal Orally Once a day , Taking Albuterol , Taking Ocrevus 300 MG/10ML Solution as directed Intravenous , Taking Robaxin 1000 MG/10ML Solution 10 mL as needed Injection every 8 hrs , Taking Lyrica 150 MG Capsule 1 capsule Orally Once a day , Taking clonazePAM 1 MG Tablet 1 tablet Orally Once a day , Taking Geodon 80 MG Capsule 1 capsule with food Orally Twice a day , Taking Benztropine Mesylate 1 MG/ML Solution as directed Injection , Taking Viibryd 40 MG Tablet 1 tablet with food Orally Once a day , Taking NexIUM 40 MG Capsule Delayed Release 1 capsule Orally Once a day , Taking Aptiom 200 MG Tablet 2 tablets Orally Once a day , Taking Vimpat 150 MG Tablet 1 tablet Orally Twice a day , Taking Butrans 10 MCG/HR Patch Weekly 1 patch to skin Transdermal every 7 days , Taking Gabapentin 300 MG Capsule 1 capsule Orally 1 capsule for 3 days at bedtime, then 2 capsules a day at am and pm for 3 days, then 3 capsules a day going forward , Taking Methocarbamol 500 MG Tablet 1 tablet Orally every 8 hrs as needed , Taking Lyrica 100 MG Capsule 1 capsule Orally three times daily , Taking MS Contin 15 MG Tablet Extended Release 1 tablet Orally every 12 hrs , Taking Methocarbamol 750 MG Tablet 1 tablet Orally every 8 hrs , Medication List reviewed and reconciled with the patient * Allergies: N SAIDs, Gabapentin, Soma, Baclofen, BuSpar, Dilantin, LaMICtal, Phenobarbital, Carisoprodol, CeleBREX, Naproxen, Tramadol, Varenicline. Objective: * Vitals: Assessment: Plan: * Treatment: * Images: Billing Information: * Visit Code: * Procedure Codes: * Electronic signature of Alie Tate MD on 09/18/2024 at 05:09 PM CDT Sign off status: Pending * Provider: Martha Tate Date: 0 08/10/2024 Generated for Heather moreno/Jackelyn/Madeline on: 0 09/18/2024 05:09 PM CDT
--- OUTSIDE RECORDS SUMMARY | 2024-09-18 17:09 | XMS_ITS | Patient Health Record ---
Author Organization [facility] Address [address] [place] [address] [address] [place] [address] Care Team Providers Care Laboratory Geneticist Name Role Phone Ascencion Crandall Primary Care Provider UnavailJagjit Bland Unavailable [phone] Pio Perdue Unavailable [phone] Betito Tate Unavailable [phone] Allergies Allergen (clinical drug ingredient) Drug/Non Drug [...] varenicline Varenicline Unknown Drug Allergy Act patricia Reason For Referral No Information Medications Medication SIG (Take, Route, Frequency, Duration) Notes Start Date End Date Status Ocrevus 300 MG/10ML as directed Intravenous Unknown Albuterol Unknown Butrans 10 MCG/HR 1 patch to skin Transdermal every 7 days for 28 days 03/02/2022 Unknown Magnesium 250 MG 1 tablet with a meal Orally Once a day for 30 day(s) Unknown Vimpat 150 MG 1 tablet Orally Twice a day Unknown Zinc 50 MG 1 tablet Orally Once a day for 30 day(s) Unknown Aptiom 200 MG 2 tablets Orally Once a day for 30 day(s) Unknown Vitamin E 100 UNIT as directed Orally Unknown NexIUM 40 MG 1 capsule Orally Once a day for 30 day(s) Unknown D-3-5 125 MCG (5000 UT) as directed Orally Unknown Viibryd 40 MG 1 tablet with food Orally Once a day for 30 day(s) Unknown Lyrica 100 MG 1 capsule Orally three times a day for 30 days [facility] 07-06-23 Dr. Pio Perdue ADRIEN: [id number] Unknown Benztropine Mesylate 1 MG/ML as directed Injection Unknown MS Contin 15 MG 1 tablet Orally every 12 hrs for 30 days [facility] 07-06-23 Dr. Pio Perdue ADRIEN: [id number] Unknown Geodon 80 MG 1 capsule with food Orally Twice a day for 30 day(s) Unknown Methocarbamol 750 MG 1 tablet Orally every 8 hrs for 30 days Unknown Eliquis 5 MG as directed Orally Unknown clonazePAM 1 MG 1 tablet Orally Once a day Unknown MS Contin 15 MG 1 tablet Orally every 12 hrs for 30 days 07/07/2024 Unknown Lyrica 150 MG 1 capsule Orally Once a day Unknown Lyrica 100 MG 1 capsule Orally three times daily for 30 days Unknown Robaxin 1000 MG/10ML 10 mL as needed Injection every 8 hrs for 3 day(s) Unknown Methocarbamol 500 MG 1 tablet Orally every 8 hrs as needed for 90 days Unknown Gabapentin 300 MG 1 capsule Orally 1 capsule for 3 days at bedtime, then 2 capsules a day at am and pm for 3 days, then 3 capsules a day going forward for 30 day(s) 08/10/2022 Unknown Social History Sex Assigned At : Social History Observation Description Sex Assigned At Male Problems Problem Type SNOMED Code ICD Code Onset Dates Problem Status W/U Status Risk Notes Problem Multiple sclerosis (49259819) Multiple sclerosis (G35) Active confirmed Problem Shoulder joint pain (908348014) Pain in left shoulder (M25.512) Active confirmed Problem Solitary sacroiliitis (052838650) Sacroiliitis, not elsewhere classified (M46.1) Active confirmed Problem Lumbar radiculopathy (984249708) Radiculopathy, lumbar region (M54.16) Active confirmed Problem Pain in left leg (679256595) Pain in left leg (M79.605) Active confirmed Problem High risk drug monitoring status (374213835) 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) Active confirmed Problem Neurogenic claudication (268027488) Spinal stenosis, lumbar region with neurogenic claudication (M48.062) Active confirmed Problem Muscle pain (31019810) Myalgia, unspecified site (M79.10) Active confirmed Vital Signs Heart Rate 89 /min 07/07/2024 Temperature 96.7 degrees Fahrenheit 07/07/2024 Blood pressure diastolic 77 mm Hg 07/07/2024 Oximetry 97 07/07/2024 Height 68 in 07/07/2024 Blood pressure systolic 115 mm Hg 07/07/2024 Weight 153 lbs 07/07/2024 BMI 23.26 07/07/2024 Procedures Procedure Date Ordered Date Performed Result Body Sit e *ASC LUMBAR/SACRAL TRANSFORA LAVERNE EPIDURAL INJ BILAT 57026 1st level, 40533 2nd level 03/08/2024 N/A Encounters Encounter Location Date Provider Diagnosis -[facility] [address] [place] [address] 09/23/2023 Pio Perdue Radiculopathy, lumba r region M54.16 ; Multiple sclerosis G35 ; Myalgia, unspecified site M79.10 ; Pain in left leg M79.605 and [facility] (current) use of opiate analgesic Z79.891 -[address] [facility] 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 analgesic Z79.891 -[address] [facility] [address] [place] [address] 11/03/2023 Jagjit Key Radiculopathy, lumba r region M54.16 ; Multiple sclerosis G35 ; Myalgia, unspecified site M79.10 ; Pain in left leg M79.605 and buttermaker helper (current) use of opiate analgesic Z79.891 -[address] [facility] [address] [place] [address] 11/18/2023 Jagjit Boedefeld Radiculopathy, lumba r region M54.16 ; Multiple sclerosis G35 ; Myalgia, unspecified site M79.10 and Pain in left shoulder M25.512 -[address] [facility] [address] [place] [address] 12/16/2023 Pio [place] Radiculopathy, lumba r region M54.16 ; Multiple sclerosis G35 ; Myalgia, unspecified site M79.10 and Pain in left shoulder M25.512 -[facility] [address] [place] [address] 03/08/2024 Jagjit Loyadejules Radiculopathy, lumba r region M54.16 ; Spinal stenosis, lumbar region with neurogenic claudication M48.062 and Vertebrogenic low back pain M54.51 -[address] [facility] [address] [place] [address] 04/05/2024 Jagjit Key Radiculopathy, lumba r region M54.16 -103 [facility] [address] [place] [address] 05/04/2024 Pio Perdue Radiculopathy, lumba r region M54.16 -[address] [facility] [address] [place] [address] 06/07/2024 Jagjit Key Radiculopathy, lumba r region M54.16 -103 [facility] [address] [place] [address] 07/07/2024 Pio Perdue Radiculopathy, lumba r region M54.16 ; Multiple sclerosis G35 ; Sacroiliitis, not elsewhere classified M46.1 ; Myalgia, unspecified site M79.10 and buttermaker helper (current) use of opiate analgesic Z79.891 -103 [facility] [address] [place] [address] 04/06/2024 Pio Perdue Radiculopathy, lumba r region M54.16 -103 [facility] [address] [place] [address] 01/11/2024 Jagjit Key Multiple sclerosis G35 -103 [facility] [address] [place] [address] 02/14/2024 Jagjit Key Radiculopathy, lumba r region M54.16 -[address] [facility] [address] [place] [address] 03/02/2024 Jagjit Key -[address] [facility] [address] [place] [address] 03/08/2024 Jagjit Key -103 [facility] [address] [place] [address] 03/08/2024 Jagjit Key -103 [facility] [address] [place] [address] 04/07/2024 Jagjit Key -[address] [facility] [address] [place] [address] 05/15/2024 Jagjit Key Radiculopathy, lumba r region M54.16 Assessments Encounter Date Diagnosis (ICD Code) Assessment Notes Treatment Notes Treatment Clinical Notes Section Notes 09/23/2023 Radiculopathy, lumbar region (ICD-10 - M54.16) The patient will return for follow-up in 1 month. I will continue the patient on the current medical regimen. The patient reports good relief, no significant side effects and improved function. I have discussed the patient with Dr. Perdue and he is in agreement with the above stated plan. Patient will continue their conservative care which includes: homebased physician guided physical therapy program for their lower back as they has for greater than six weeks, their use of topical NSAIDs, TENS unit, ice and heat packs as needed, direct care staffer. 11/03/2023 Radiculopathy, lumbar region (ICD-10 - M54.16) TBF today on 11-03-23. The patient will return for follow-up in 1 month. I will continue the patient on the current medical regimen. The patient reports good relief, no significant side effects and improved function. I have discussed the patient with Dr. Perdue and he is in agreement with the above stated plan. Patient will continue their conservative care which includes: homebased physician guided physical therapy program for their lower back as they has for greater than six weeks, their use of topical NSAIDs, TENS unit, ice and heat packs as needed, direct care staffer. 11/18/2023 Radiculopathy, lumbar region (ICD-10 - M54.16) TBF today on 12-03-23. MRI of lumbar spine was ordered. and is awaiting insurance authorization. Patient has tried conservative methods of treatment including 6 weeks of physical therapy/ physician guided home based physical therapy program for back without significant relief. Patient has also tried anti inflammatories, topical OTC pain analgesics, TENs Units, direct care staffer without significant improvement. The patient will return for follow-up in 1 month. I will continue the patient on the current medical regimen. The patient reports good relief, no significant side effects and improved function. I have discussed the patient with Dr. Perdue and he is in agreement with the above stated plan. Patient will continue their conservative care which includes: homebased physician guided physical therapy program for their lower back as they has for greater than six weeks, their use of topical NSAIDs, TENS unit, ice and heat packs as needed, direct care staffer. 11/18/2023 Multiple sclerosis (ICD-10 - G35) 12/16/2023 Radiculopathy, lumbar region (ICD-10 - M54.16) TBF on 01-02-24. The patient will return for follow-up in 1 month. I will continue the patient on the current medical regimen. The patient reports good relief, no significant side effects and improved function. I have discussed the patient with Dr. Perdue and he is in agreement with the above stated plan. Patient will continue their conservative care which includes: homebased physician guided physical therapy program for their lower back as they has for greater than six weeks, their use of topical NSAIDs, TENS unit, ice and heat packs as needed, direct care staffer. 01/11/2024 Multiple sclerosis (ICD-10 - G35) 01/12/2024 Radiculopathy, lumbar region (ICD-10 - M54.16) TBF on 02-01-24. The patient will return for follow-up in 1 month. I will continue the patient on the current medical regimen. The patient reports good relief, no significant side effects and improved function. I have discussed the patient with Dr. Key and he is in agreement with the above stated plan. Patient will continue their conservative care which includes: homebased physician guided physical therapy program for their lower back as they has for greater than six weeks, their use of topical NSAIDs, TENS unit, ice and heat packs as needed, direct care staffer. 02/14/2024 Radiculopathy, lumbar region (ICD-10 - M54.16) 03/08/2024 Radiculopathy, lumbar region (ICD-10 - M54.16) I reviewed the patient's recent lumbar MRI. He has multilevel disk degeneration with near complete loss of disk space at L3-4. There is Modic changes at L3-4. He has moderate spinal canal stenosis at L3-4 segment. His pain radiates into the lower extremities. I will schedule him for bilateral L3 transforaminal epidural steroid injections under fluoroscopic guidance. I discussed the risks including bleeding, infection and neurologic injury. He will be scheduled pending insurance authorization. He is requesting a refill of his medication regimen. He is inquiring about an increased dose. We discussed this in detail. We will hold off on increasing his medication at this time. We cannot consider switching him to [place] in the future. I will continue the MS Contin 15 mg [id number] and the Robaxin as needed for spasms. I discussed the risks of opioid therapy with the patient including respiratory depression, addiction, tolerance, dependence, constipation and the possibility of poor superintendent container terminal efficacy. They understand these potential issues with this type of medication, but they report significant pain that has been unresponsive to more conservative therapies. Patient will continue to be a part of a comprehensive pain management program as tolerated, while and after treatment plan is carried out. The patient reported their current pain is 9/10 currently in office but is a 10/10 at worst and their pain disability index score is 54. PDMP checked on 03/08/2024 @ 121pm and patient is compliant. 03/08/2024 Spinal stenosis, lumbar region with neurogenic claudication (ICD-10 - M48.062) 04/05/2024 Radiculopathy, lumbar region (ICD-10 - M54.16) We will proceed with a bilateral lumbar transforaminal epidural steroid injection under fluoroscopic guidance. For complete details please see the attached procedure note. I discussed with the risks of the procedure including those of bleeding, infection, nerve damage, spinal cord injury, neurologic injury, meningitis, dural puncture, arachnoiditis and the possibility of limited improvement. They understood the risks and wished to proceed. The patient will continue to be a part of a comprehensive pain management program as tolerated, while and after the treatment plan is carried out. Prior to the procedure the patient reported their current pain is 9/10 but at worst is 10/10 with daily activities as mentioned. This was measured using the visual analog scale provided to the patient at todays appointment. Their pain disability index score is 67. Patient reports 0% initial relief of their primary index pain from their procedure today, and post procedure pain scale is 9/10 with the same activity producing the pain prior to procedure. Following the procedure, the patient was monitored for 15 minutes post procedure to ensure no side effects from procedure were present. 04/06/2024 Radiculopathy, lumbar region (ICD-10 - M54.16) 05/04/2024 Radiculopathy, lumbar region (ICD-10 - M54.16) Patient is a very pleasant 49-year-old male returning today for follow-up regarding the lower back pain radiating to his bilateral lower extremities. We will continue him on his MS Contin medication as well as methocarbamol. His neurologist has apparently taken over the prescription privileges of his Lyrica medication for which he takes 200 mg Q8H. I did suggest possibly trying an epidural steroid injection so as to target his bilateral L5 nerve roots. We will think about it and let me know at his next encounter. We will have him follow up in 1 month. Lyrica Rx was not given to patient. 05/15/2024 Radiculopathy, lumbar region (ICD-10 - M54.16) 06/07/2024 Radiculopathy, lumbar region (ICD-10 - M54.16) The patient will return for follow-up in 1 month. I will continue the patient on the current medical regimen. The patient reports good relief, no significant side effects and improved function. Patient will continue to be part of a comprehensive pain management program as tolerated during and after treatment plan is carried out. I have discussed the patient with Dr. Key and he is in agreement with the above stated plan. 07/07/2024 Multiple sclerosis (ICD-10 - G35) 07/07/2024 Radiculopathy, lumbar region (ICD-10 - M54.16) Patient is a 49 yo male returning today for f/u re: chronic low back pain radiating to his BLEs, neuropathy, and medication refill. I offered to refer him to a spine surgeon, but patient declines this at this time. We will refill his MS Contin and methocarbamol today which he takes for pain without significant s/e, and I will have him follow up in 1 month. The patient will return for follow-up in 1 month. I will continue the patient on the current medical regimen. The patient reports good relief, no significant side effects and improved function. Patient will continue to be part of a comprehensive pain management program as tolerated during and after treatment plan is carried out. I have discussed the patient with Dr. Key and he is in agreement with the above stated plan. 07/07/2024 Sacroiliitis, not elsewhere classified (ICD-10 - M46.1) 03/08/2024 Vertebrogenic low back pain (ICD-10 - M54.51) 01/12/2024 Multiple sclerosis (ICD-10 - G35) 11/18/2023 Myalgia, unspecified site (ICD-10 - M79.10) 12/16/2023 Multiple sclerosis (ICD-10 - G35) 11/03/2023 Multiple sclerosis (ICD-10 - G35) 09/23/2023 Multiple sclerosis (ICD-10 - G35) 09/23/2023 Myalgia, unspecified site (ICD-10 - M79.10) 11/03/2023 Myalgia, unspecified site (ICD-10 - M79.10) 12/16/2023 Myalgia, unspecified site (ICD-10 - M79.10) 11/18/2023 Pain in left shoulder (ICD-10 - M25.512) A X ray of left shoulder was ordered to evaluate patient status and help determine direction of plan of care. 01/12/2024 Myalgia, unspecified site (ICD-10 - M79.10) 07/07/2024 Myalgia, unspecified site (ICD-10 - M79.10) 07/07/2024 [facility] (current) use of opiate analgesic (ICD-10 - Z79.891) 12/16/2023 Pain in left shoulder (ICD-10 - M25.512) 01/12/2024 Pain in left shoulder (ICD-10 - M25.512) 11/03/2023 Pain in left leg (ICD-10 - M79.605) 09/23/2023 Pain in left leg (ICD-10 - M79.605) 09/23/2023 [facility] (current) use of opiate analgesic (ICD-10 - Z79.891) Reviewed last UDS with patient. UDS was consistant. 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 Patient states their last dose of medication was today. 09/23/2023 Other Patient will continue to be a part of a comprehensive pain management program as tolerated, while and after treatment plan is carried out. The patient reported their current pain is 9/10 currently in office but is a 10/10 at worst and their pain disability index score is 55. 10/21/2023 Other Patient will continue to be a part of a comprehensive pain management program as tolerated, while and after treatment plan is carried out. The patient reported their current pain is 9/10 currently in office but is a 10/10 at worst and their pain disability index score is 55. 01/12/2024 Other Patient will continue to be a part of a comprehensive pain management program as tolerated, while and after treatment plan is carried out. The patient reported their current pain is 8/10 currently in office but is a 10/10 at worst and their pain disability index score is 63. 02/10/2024 Other Patient will continue to be a part of a comprehensive pain management program as tolerated, while and after treatment plan is carried out. The patient reported their current pain is 8/10 currently in office but is a 10/10 at worst and their pain disability index score is 63. 11/03/2023 Other Patient will continue to be a part of a comprehensive pain management program as tolerated, while and after treatment plan is carried out. The patient reported their current pain is 7/10 currently in office but is a 10/10 at worst and their pain disability index score is 60. 11/18/2023 Other Patient will continue to be a part of a comprehensive pain management program as tolerated, while and after treatment plan is carried out. The patient reported their current pain is 9/10 currently in office but is a 10/10 at worst and their pain disability index score is 67. 12/16/2023 Other Patient will continue to be a part of a comprehensive pain management program as tolerated, while and after treatment plan is carried out. The patient reported their current pain is 8/10 currently in office but is a 10/10 at worst and their pain disability index score is 63. Plan Of Treatment Pending Test Test Name Order Date X ray : Shoulder, left 11/18/2023 MRI : Lumbar Spine With/Without Contrast 11/18/2023 X ray: Femur, left 05/06/2023 UDS 09/10/2022 *ASC LUMBAR/SACRAL TRANSFORA LAVERNE EPIDURAL INJ BILAT 33883 1st level, 14232 2nd level 03/08/2024 UDS [facility] #[id number] UDS [facility] #[id number] Insurance Providers Payer Name Payer Address Payer Phone Subscriber Number Group Number Insured Name Patient Relationship to Insured Coverage Start Date Coverage End Date [facility] [address] [place] [phone] [id number] Jd Enriquez Self - patient is the insured 4 Medical (General) History Medical History History ICD Code nerve damage anxiety dibetes chronic bronchitis pneumonia Surgical History Surgery Date(Month/Year) placement of port Hospitalization History Reason Date(Month/Year) for above
--- OUTSIDE RECORDS SUMMARY | 2024-09-18 17:09 | XMS_ITS | Referral Summary ---
Author Organization [facility] Center Address [address] [place] [address] Care Team Providers Care Slot Service Specialist Name Role Phone Ascencion Crandall NP Primary Care Provider [phone] Mable Castaneda MD Unavailable [phone] Haim Clement MD Unavailable [phone] Miguel Jara MD, Sunil Ledesma Unavailable [phone] Rui Brizuela MD Unavailable Eddi Jiménez NP Unavailable Encounters Date Type Department Care Team Description 09/04/2024 Telephone [facility]ly [facility] [address] [place] [phone] Michaela Lynch RN 08/16/2024 Telephone [facility] [address] [place] [phone] Jerri Segura LPN 08/16/2024 Telephone [facility] [address] [place] [phone] Cresencio Shrestha MD Med Management (Modafinil 100mg) 08/15/2024 Telephone [facility]ly [facility] [address] [place] [phone] Jerri Segura LPN 08/02/2024 12:00 PM CDT Home Care Visit [address] [place] [address] Marie Pleitez, PT PT OASIS DISCHARGE 08/01/2024 Orders Only [facility] ADMIT [address] [place] [address] Samina Ruby MD 08/01/[address] [place] [address] Radha Severino, ZAY 07/27/2024 Home Care Visit [address] [place] [address] Harvinder Neil [facility] CASE COMMUNICATION 07/27/2024 1:30 PM BENCH LATHE OPERATOR Home Care Visit [address] [place] [address] Jennifer Brewer, OT OT REASSESSMENT 07/26/2024 Orders Only [facility] [address] [facility] [address] [place] [address] Cresencio Shrestha MD 07/24/2024 12:30 PM BENCH LATHE OPERATOR Home Care Visit [address] [place] [address] Marie Pleitez, PT PT HOME VISIT 07/21/2024 Home Care Visit [address] [place] [address] Rosina Latham, OT CASE COMMUNICATION 07/18/2024 Home Care Visit [address] [place] [address] Rosina Latham, OT CASE COMMUNICATION 07/17/2024 1:15 PM BENCH LATHE OPERATOR Home Care Visit [address] [place] [address] Marie Pleitez, PT PT REASSESSMENT 07/13/2024 Home Care Visit [address] [place] [address] Rosina Latham, OT CASE COMMUNICATION 07/12/2024 Home Care Visit [address] [place] [address] Marie Pleitez, PT TELEPHONE ENCOUNTER 07/07/2024 10:45 AM BENCH LATHE OPERATOR Home Care Visit [address] [place] [address] Marie Pleitez, PT PT HOME VISIT 07/06/2024 1:15 PM BENCH LATHE OPERATOR Home Care Visit [address] [place] [address] Annel Colindres COTA OT HOME VISIT 07/03/2024 1:00 PM BENCH LATHE OPERATOR Home Care Visit [address] [place] [address] Marie Pleitez, PT PT HOME VISIT 06/30/2024 3:00 PM BENCH LATHE OPERATOR Home Care Visit [address] [place] [address] Rosina aLtham, OT OT HOME VISIT 06/30/2024 1:15 PM BENCH LATHE OPERATOR Home Care Visit [address] [place] [address] Marie Pleitez, PT PT HOME VISIT 06/28/2024 12:30 PM BENCH LATHE OPERATOR Home Care Visit [address] [place] [address] Marie Pleitez, PT PT HOME VISIT 06/27/2024 Home Care Visit [address] [place] [address] [place]Har[place] LCSW BUSINESS RELATIONSHIP MANAGER DISCIPLINE DISCHARGE 06/27/2024 2:30 PM BENCH LATHE OPERATOR Home Care Visit [address] [place] [address] Harvinder Neil LCSW BUSINESS RELATIONSHIP MANAGER INITIAL EVAL 06/26/2024 Home Care Visit [address] [place] [address] Mary Yu, ZAY NURSE MED RECON FOR THERAPY 06/24/2024 Home Care Visit [address] [place] [address] Harvinder Neil LCSW CASE COMMUNICATION 06/23/2024 Home Care Visit [address] [place] [address] Rosina Latham, OT CASE COMMUNICATION 06/23/2024 2:00 PM BENCH LATHE OPERATOR Home Care Visit [address] [place] [address] Rosina Latham, OT OT INITIAL EVALUATION 06/22/2024 Home Care Visit [address] [place] [address] Marie Pleitez, PT TELEPHONE ENCOUNTER 06/22/2024 Plan of Care Documentation [address] [place] [address] 06/22/2024 1:00 PM BENCH LATHE OPERATOR Home Care Visit [address] [place] [address] Marie Pelitez, PT PT OASIS START OF CARE 06/21/2024 Telephone [facility] [address] [place] [address] Jolene Ford RP 06/20/2024 Home Care Visit [address] [place] [address] Marie Pleitez, PT TELEPHONE ENCOUNTER from Last 3 Months Allergies Active Allergy Reactions Criticality Noted Date [...] needed for pain or fever (mild pain: 1-07/31) Active albuterol 2.5 mg /3 mL (0.083 [...] topically daily Active OneTouch Verio Flex meter [facility] [place] 05/29/19 23 Active cholecalciferol (VITAMIN D-3) 5,000 unit capsuleIndicati ons:Vitamin D Deficiency Take 5,000 Units by mouth daily Active OneTouch Delica Plus Lancet 33 gauge [facility] [place] 05/29/19 23 Active triamcinolone (KENALOG) 0.1 % cream Active morphine ER (MS CONTIN) 15 mg 12 hr tabletIndicatio ns:severe chronic pain requiring long-term opioid treatment Take 1 tablet (15 mg total) by mouth 2 (two) times a day 6 tablet 06/25/19 23 Active apixaban (ELIQUIS) 5 mg tabletIndicatio ns:atrial fibrillation Take 1 tablet (5 mg total) by mouth every 12 (twelve) hours 06/25/19 23 Active sodium chloride 1 gram tablet Take 1 tablet (1 g total) by mouth 3 (three) times a day with meals 06/25/19 23 Active Additional Information Patient taking differently: 3 [...] mouth 3 (three) times a day 02/08/20 23 Active budesonide-glyc opyr-formoterol 160-9-4.8 mcg/actuation HFA aerosol inhalerIndicati ons:Bronchospas m Prevention with COPD INHALE 2 PUFFS BY MOUTH TWICE DAILY DIRECTED Active ocrelizumab (Ocrevus) 30 mg/mL solution Infuse 10 mL (300 mg total) into a venous catheter Active EPINEPHrine 0.3 mg/0.3 mL auto-injection syringe ADMINISTER 0.3 ML IN THE MUSCLE 1 TIME NEEDED FOR ANAPHYLAXIS 05/06/20 23 Active levothyroxine (Synthroid) 100 mcg tabletIndicatio ns:hypothyroidi sm Take 100 mcg by mouth airconditioning engineer before breakfast 06/18/19 24 Active mepolizumab (Nucala) [...] 08/07/2020 Assessment & Plan (05/09/2024 4:57 PM BENCH LATHE OPERATOR): The patient is presenting for follow up [...] been having difficulties obtaining a ride to [facility]. We will reach out to our home [...] 09/19/2019 Assessment & Plan (05/09/2024 4:57 PM BENCH LATHE OPERATOR): The patient has chronic pain in his [...] evaluate for other causes of peripheral neuropathy. Immunizations Immunization Administration Dates Next Due Hep A, Adult 11/21/1989,05/24/1989 Hep B, Adolescent or Pediatric 11/21/1992,1992,05/24/1992 Influenza, Quadrivalent, Spl it, Intramuscular 02/21/2021,03/06/2018 [employer] ([employer]) SARS-CoV-2 Vaccination 07/30/2020 Pneumococcal Conjugate PCV 13 02/21/2020 Pneumococcal Polysaccharide PPV23 02/25/2021 Pneumococcal, Unspecified 03/22/2018 Td, Unspecified 10/22/2004 Social History Tobacco Use Types Packs/Day Years [...] week 06/08/2022 How often do you attend chur ch or anglican services? 1 to 4 times per year 06/08/2022 Do you belong to any clubs o r organizations such as shinto groups, unions, fraternal or athletic groups, or [...] on file Legal Sex Male 7:00 AM BENCH LATHE OPERATOR Gender Identity Not on file Sexual Orientation Not on file Last Filed Vital Signs Vital Sign Reading Time Taken Comments Blood Pressure 124/78 07/27/2024 1:47 PM BENCH LATHE OPERATOR Pulse 78 07/27/2024 1:47 PM BENCH LATHE OPERATOR Temperature 37.4 C (99.3 F) 07/27/2024 1:47 PM BENCH LATHE OPERATOR Respiratory Rate 18 07/27/2024 1:47 PM BENCH LATHE OPERATOR Oxygen Saturation 97% 07/27/2024 1:47 PM BENCH LATHE OPERATOR Inhaled Oxygen Concentration - - Weight 71.2 kg (157 lb) 05/09/2024 3:24 PM BENCH LATHE OPERATOR Height 175.3 cm (5' 9.02 ) 05/22/2024 10:[address] Body Mass Index 23.18 05/09/2024 3:24 PM BENCH LATHE OPERATOR Plan of Treatment Not on file Medical Devices Implanted Type Area Boilermaking Supervisor Device Identifier Shelf Expiration Date Model / Serial / Lot [employer] Solia S 53cm Steroid Elute Bipolar Active Fixation Endocardial [id number] - [id number] - [id number] Implanted:Qty: 1 on 06/15/2022 by Sunil Rivera Jr., MD at Lead Right: Ventricle [employer] [id number] 05/23/2024 [id number] / [id number] / [employer] Solia S 45cm Bipolar Active Fixation Lead Pacing Steroid Eluting [id number] - [id number] - [id number] Implanted:Qty: 1 on 06/15/2022 by Sunil Rivera Jr., MD at Lead Right: Atria [employer] [id number] 03/23/2024 [id number] / [id number] / [employer] Edora Promri 18p98r9.5mm Dual Chamber Rate Adaptive Unipolar Bipolar [id number] - [id number] - [id number] Implanted:Qty: 1 on 06/15/2022 by Sunil Rivera Jr., MD at Pacemaker Left: Chest Wall [employer] Inc [id number] 10/22/2023 [id number] / [id number] / [employer] Inspiris Resilia Leaflet Aortic Valve 25mm [id number] - [id number] - [id number] Implanted:Qty: 1 on 06/09/2022 by Rui Brizuela MD at N/A: Heart [employer] 06/11/2025 [id number] / [id number] / Explanted Type Area Boilermaking Supervisor Device Identifier Shelf Expiration Date Model / Serial / Lot [employer] Weck Horizon 6 Cartridge Ligate Triangulate Cross Section Heart [id number] - [id number] Explanted:Qty: 1 on 06/09/2022 at N/A: Chest [employer] [id number] / / Procedures Procedure Name Priority Date/Time Associated Diagnosis Comments HEPATITIS PANEL, ACUTE Routine 05/10/2024 12:31 PM BENCH LATHE OPERATOR Multiple sclerosis (HCC) COMPREHENSIVE METABOLIC PANEL Routine 05/10/2024 12:31 PM BENCH LATHE OPERATOR Multiple sclerosis (HCC) CT LUNG CANCER SCREENING Schedule Routine, Read Routine (OP Routine) 01/20/2024 8:36 AM CDT Personal history of nicotine dependence LIPID PANEL Timed 06/07/2022 3:54 AM BENCH LATHE OPERATOR HEMOGLOBIN A1C Routine 06/06/2022 12:38 AM BENCH LATHE OPERATOR from Last 3 Months or Most Recently Relevant to Health Maintenance Results * Hepatitis panel, acute Blood (05/10/2024 12:31 PM BENCH LATHE OPERATOR) Hep A IgM NON-REACTI VE NON-REACT CODY [facility] Comment: For additional information, please refer to http://UsabilityTools.com/faq/YLK635 (This link is being provided for informational/ educational purposes only.) HepBsAg NON-REACTI VE NON-REACT CODY [facility] Comment: For additional information, please refer to http://UsabilityTools.com/faq/FBW163 (This link is being provided for informational/ educational purposes only.) Hep B core IgM NON-REACTI VE NON-REACT CODY [facility] Comment: For additional information, please refer to http://UsabilityTools.com/faq/HDC020 (This link is being provided for informational/ educational purposes only.) Hep C Ab NON-REACTI VE NON-REACT CODY [facility] Comment: HCV antibody was non-reactive. There is no laboratory evidence of HCV infection. In most cases, no further action is required. However, if recent HCV exposure is suspected, a test for HCV RNA (test code 53966) is suggested. For additional information please refer to http://UsabilityTools.com/faq/WDM68i8 (This link is being provided for informational/ educational purposes only.) Blood 05/10/2024 12:3 1 PM BENCH LATHE OPERATOR 05/10/2024 12:32 PM BENCH LATHE OPERATOR us Cresencio Shrestha MD LAB MICROBIOLOGY - NERAL ORDERABLES Final Result [facility] [address] [address] * (ABNORMAL) Comprehensive metabolic panel (05/10/2024 12:31 PM BENCH LATHE OPERATOR) [facility] Glucose 85 65 - 99 mg/dL [facility] Comment: Fasting reference interval BUN 6(L) 7 - 25 mg/dL [facility] Creatinine 0.66(L) 0.70 - 1.30 mg/dL [facility] eGFR 114 > OR = 60 mL/min/1.7 3m2 [facility] BUN/creat ratio 9 6 - 22 (calc) [facility] Sodium 143 135 - 146 mmol/L [facility] Potassium, pl 4.4 3.5 - 5.3 mmol/L [facility] Chloride 106 98 - 110 mmol/L [facility] CO2 30 20 - 32 mmol/L [facility] Calcium 9.5 8.6 - 10.3 mg/dL [facility] Protein, sr 6.3 6.1 - 8.1 g/dL [facility] Albumin 4.0 3.6 - 5.1 g/dL [facility] GLOBULIN 2.3 1.9 - 3.7 g/dL (calc) [facility] Alb/glob ratio 1.7 1.0 - 2.5 (calc) [facility] Bilirubin, total 0.5 0.2 - 1.2 mg/dL [facility] Alk phos 107 35 - 144 U/L [facility] AST 14 10 - 35 U/L [facility] ALT (SGPT) 13 9 - 46 U/L [facility] Blood 05/10/2024 12:3 1 PM BENCH LATHE OPERATOR 05/10/2024 12:32 PM BENCH LATHE OPERATOR us Cresencio Shrestha MD LAB BLOOD ORDERABLES Final Result [facility] [address] [place] [address] * CT Lung Cancer Screening (01/20/2024 8:36 [...] new median sternotomy wires. us Ascencion Crandall CONTOUR GRINDER IMG CT PROCEDURES Final Resu lt * (ABNORMAL) Lipid panel (06/07/2022 3:54 AM BENCH LATHE OPERATOR) Cholesterol 124 30 - 199 mg/dL [facility] Comment: Interpretive Data Ages < or = [...] revised on 2018. Triglycerides 121 <=149 mg/dL [facility] Comment: Interpretive Data Ages < or = [...] revised on 2018. HDL 23(L) >=40 mg/dL [facility] Comment: Interpretive Data Ages < or = [...] on 2018. LDL, calculated 77 <=129 mg/dL [facility] Comment: Interpretive Data Ages < or = [...] revised on 2018. Non-HDL Cholesterol 101 mg/dL [facility] Comment: Interpretive Data Ages < or = [...] last revised on 2018. Chol/HDL ratio 5 [facility] Blood 06/07/2022 3:54 AM BENCH LATHE OPERATOR 06/07/2022 4:04 AM BENCH LATHE OPERATOR us Samina Ruby MD LAB BLOOD ORDERABLES Final Res ult [facility] [address] Department [place] [address] * (ABNORMAL) Hemoglobin A1c (06/06/2022 12:38 AM BENCH LATHE OPERATOR) Hgb A1C 6.3(H) 4.0 - 5.6 % [facility] Estimated Average Glucose 134 mg/dL [facility] Comment: The ADA recommends reporting an estimated Average Glucose (eAG) with all Hemoglobin A1c results using the equation derived from a study of 507 normal and diabetic adults. Minority populations were underrepresented and children were not included. (Diabetes Care 31:5439-4241, 2008). The eAG is not equivalent to a fasting glucose. Blood 06/06/2022 12:3 8 AM BENCH LATHE OPERATOR 06/06/2022 1:00 AM BENCH LATHE OPERATOR us Samina Ruby MD LAB BLOOD ORDERABLES Final Res ult [facility] [address] Department [place] [address] from Last 3 Months or Most Recently Relevant to Health Maintenance Insurance [facility] [place] [address] IDPA [facility] MEDICARE ADVANTAGE IDPA Advance Directives For more information, please contact: [phone] Documents on File Type Date Recorded Patient Senior Business Manager Expl anation ADVANCE DIRECTIVE 07/04/2024 9:30 AM Power of Telephone Clerk [employer] ADVANCE DIRECTIVE 08/12/2022 11:16 AM RAVI R OF GEL COAT SPRAYER-MEDICAL ADVANCE DIRECTIVE 06/08/2022 4:40 PM Power of Telephone Clerk [employer] * Full Code (Latest Code Status on File) Date Activated Date Inactivated Comments 06/23/2023 8:46 AM 06/24/2023 5:04 AM * Full Code Date Activated Date Inactivated Comments 06/15/2022 2:44 PM 06/25/2022 7:43 PM * Full Code Date Activated Date Inactivated Comments 06/08/2022 6:49 PM 06/15/2022 2:44 PM * Full Code Date Activated Date Inactivated Comments 06/06/2022 12:01 AM 06/08/2022 6:49 PM Care Teams Slot Service Specialist Relationship Specialty Start Date End Date Ascencion Crandall NP PCP - General Internal Medicine 09/19/21 Mable Castaneda MD [address] [place] [id number] Consulting Physician Cardiovascular Disease 06/12/22 Haim Clement MD [address] [place] [address] Consulting Physician Infectious Diseases 06/25/22 Sunil Rivera Jr., MD [address] [address] Consulting Physician Cardiovascular Disease 06/25/22 Rui Brizuela MD [address] [place] [address] Consulting Physician Cardiothoracic Surgery 06/25/22 Eddi Jimé[place] [address] [facility] [address] [place] [address] Nurse Practitioner Pain Management 03/22/24
--- OUTSIDE RECORDS SUMMARY | 2024-09-18 17:09 | XMS_ITS | Encounter Summary ---
Author Organization [facility] Address [address] [place] [address] Care Team Providers Care Fret Saw Operator Name Role Phone Ascencion Crandall NP Primary Care Provider [phone] Mable Castaneda MD Unavailable [phone] Haim Clement MD Unavailable [phone] Miguel Jara MD, Sunil Ledesma Unavailable [phone] Rui Brizuela MD Unavailable [phone] Eddi Jiménez NP Unavailable [phone] Encounter Details Date Type Department Care Team (Late st Contact Info) Description 05/27/2023 Telephone [facility] [address] [place] [address] Marilee Bryson, ZAY Social History Tobacco Use Types Packs/Day Years Used Date Smoking Tobacco: Never Smokeless Tobacco: Never Social Connection and Isolat ion Panel [NHANES] Answer Date Recorded In a typical week, how many times do you talk on the phone with family, friends, or neighbors? More than three times a week 06/08/2022 How often do you get togethe r with friends or relatives? More than three times a week 06/08/2022 How often do you attend chur ch or judaism services? 1 to 4 times per year 06/08/2022 Do you belong to any clubs o r organizations such as spiritism groups, unions, fraternal or athletic groups, or [...] money to buy more. Never true 06/08/19 Within the past 12 months, t he [...] No 06/08/2022 Personal Safety Answer Date Recorded Getting School Help Needed Denies 05/08 Sex and Gender Information Value Date Recorded Sex Assigned at Not on file Legal Sex Male 7:00 AM DIETETIC ASSISTANT Gender Identity Not on file Sexual Orientation Not on file documented as of this encounter Plan of Treatment Not on file documented as of this encounter Visit Diagnoses Not on filedocumented in this encounter Care Teams Fret Saw Operator Relationship Specialty Start Date End Date Ascencion Crandall NP PCP - General Internal Medicine 09/19/21 Mable Castaneda MD [address] [place] [address] Consulting Physician Cardiovascular Disease 06/12/22 Haim Clement MD [address] [facility] [address] [place] [address] Consulting Physician Infectious Diseases 06/25/22 Sunil Rivera Jr., MD [address] [place] [address] Consulting Physician Cardiovascular Disease 06/25/22 Rui Brizuela MD [address] [place] [address] Consulting Physician Cardiothoracic Surgery 06/25/22 Eddi Jimé[place] [address] [facility] [address] [place] [address] Nurse Practitioner Pain Management 03/22/24 documented as of this encounter
--- OUTSIDE RECORDS SUMMARY | 2024-09-18 17:09 | XMS_ITS | Encounter Summary ---
Author Organization [facility] Address [address] [facility] [place] [address] Care Team Providers Care Tractor Trailer Truck Driver Name Role Phone Philip Burrell MD Primary Care Provider [phone] Ascencion Crandall APRN-ATTENDING RADIOLOGIST Primary Care Provider Encounter Details Date Type Department Care Team (Late st Contact Info) Description 02/01/2024 Telephone [facility] - Anesthesiology [address] [place] [address] Rui Whitten, DO [address] [place] [address] Social History Tobacco Use Types Packs/Day Years Used Date Smoking Tobacco: Former Cigarettes 0.5 20 Smokeless Tobacco: Never Alcohol Use Standard Drinks/Week Comments No 0 (1 standard drink = 0.6 oz pur e alcohol) OASIS D0700: Social Isolation Answer Da te Recorded Frequency of experiencing loneliness or isolatio n Never 09/24/2022 OASIS A1250: Transportation Answer Date Recorded Lack of Transportation (Medical) No 09/24/2022 Lack of Transportation (Non-Medical) No 09/24/2022 Patient Unable or Declines to Respond No 09/24/2022 OASIS B1300: Health Literacy Answer Nabeel e Recorded Frequency of needing help to read materials from doctor or pharmacy Never 09/24/2022 Sex and Gender Information Value Date Recorded Sex Assigned at Not on file Legal Sex Male 9:21 AM TOE POUNDER Gender Identity Not on file Sexual Orientation Not on file 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 [address] PCP - General Nurse Practitioner Family 04/06/24 documented as of this encounter
--- OUTSIDE RECORDS SUMMARY | 2024-09-18 17:09 | XMS_ITS | CONTINUITY OF CARE DOCUMENT ---
Author Name debbie lewis Address Unknown Organization [facility] Address [address] [place] [address] Phone [phone] Care Team Providers Care Reports Analysis Manager Name Role Phone Miguel LEE, Sunil Unavailable BOYD GRAF MD Unavailable CIARRA CUNNINGHAM Unavailable PROBLEMS Condition Status Date Provider Notes S/P Dual chamb PCM - Biotron ik ( MRI Safe) active Maryjo Hicks Diabetes, Type 2 active Sunil Rivera MD Hyperlipidemia active Sunil Rivera MD Hypertension active Sunil Rivera MD AV block, complete active Sunil Rivera MD Aortic valve replacement active Sunil pena MD Endocarditis active Sadia Ventimiglia [employer]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 Atrial fib paroxysmal active Sadia Ventimi glia [employer]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 Hyponatremia active Sadia Ventimiglia CALCUL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 ENCOUNTERS Date Type Provider Location Encounter Diag nosis - In-person encounter Office Visit Sunil Rivera MD [place] [facility] - In-person encounter Office Visit Sunil Rivera MD [place] [facility] EndocarditisAtrial fib paroxysmalHyponatremia - In-person encounter Office Visit Sunil Rivera MD [place] [facility] - In-person encounter Office Visit Sunil Rivera MD [place] [facility] Diabetes, Type 2HyperlipidemiaHypertensionA V block, completeAortic valve replacement VITAL SIGNS Date Observation Value Provider Body Mass Index (Ratio) 26.91 kg/m2 Kalpesh Peacock [employer]CUL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 blood pressure, diastolic 68 mm[Hg] Ja rret blood pressure, systolic 102 mm[Hg] Jar ret pulse rate 92 /min Shaun blood pressure, cuff size regular Ja rret respiratory rate E&M 16 /min oxygen saturation, oximetry 96 % weight E&M 177 [lb_av] Shaun y height E&M 68 [in_i] Shaun Body Mass Index (Ratio) 30.10 kg/m2 [facility] ntha Cranmer blood pressure, cuff size regular Ja rr blood pressure, diastolic 85 mm[Hg] Ja rret blood pressure, systolic 117 mm[Hg] Jar ret pulse rate 71 /min Shaun respiratory rate E&M 12 /min Shaun oxygen saturation, oximetry 97 % Shaun weight E&M 198 [lb_av] Shaun y height E&M 68 [in_i] Shaun y Body Mass Index (Ratio) 29.34 kg/m2 Collin ntbrad Cranmer pulse rate 98 /min Anel Aguilar blood pressure, diastolic 75 mm[Hg] Mukul [facility] Jeff blood pressure, systolic 120 mm[Hg] Kirt Aguilar respiratory rate E&M 16 /min Anel M iller oxygen saturation, oximetry 98 % Anel Aguilar weight E&M 193 [lb_av] Anel Aguilar height E&M 68 [in_i] Anel Aguilar Body Mass Index (Ratio) 24.48 kg/m2 Chintan Rivera MD weight E&M 161 [lb_av] Pamela Tomlinson pulse rate 78 /min Pamela Tomlinson respiratory rate E&M 18 /min Pamela Tomlinson blood pressure, cuff size regular samson Tomlinson blood pressure, diastolic 77 mm[Hg] Sh samson Tomlinson blood pressure, systolic 121 mm[Hg] She izabel Tomlinson oxygen saturation, oximetry 97 % Pamela Tomlinson height E&M 68 [in_i] Pamela Tomlinson ALLERGIES Allergy Name Onset Date Reaction Criticality Status VARENICLINE High Criticality active TRAMADOL High Criticality active NAPROXEN High Criticality active GABAPENTIN High Criticality active CELECOXIB High Criticality active CARISOPRODOL High Criticality active BUPROPION High Criticality active BACLOFEN High Criticality active PHENOBARBITAL High Criticality activ e NSAIDS High Criticality active LAMICTAL High Criticality active DILANTIN High Criticality active BUSPAR High Criticality active HISTORY OF MEDICATION USE Medication Status Instructions Dates Provider Indications Com ments Eliquis 5 mg tablet active Take 1 tablet by mouth twice a day Sadia Ventimiglia [employer]CUL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 metoprolol tartrate 25 mg tablet active Take 1/2 tablet by mouth twice a day Sadia Ventimiglia [employer]CUL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 metoprolol tartrate 25 mg tablet completed TAKE 1/2 TABLET BY MOUTH TWICE DAILY - Sadia Ventimiglia CALCUL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 amiodarone 200 mg tablet completed Take 1 tablet by mouth once a day - Sadia Ventimiglia CALCUL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 metoprolol tartrate 25 mg tablet completed 1/2 tablet twice a day - Glendy Peck atorvastatin 10 mg tablet active TAKE 1 TABLET DAILY Sadia Ventimiglia CALCUL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 Calcium 500 completed - Sadia Ventimiglia [employer]CUL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 docusate sodium 100 mg capsule active Pamela Tomlinson eslicarbazepine 200 mg tablet active Pamela Tomlinson fluticasone furoate-vilanterol 100-25 mcg/dose blister with device active Pamela Tomlinson senna 8.6 mg tablet active Pamela Tomlinson sodium chloride 1,000 mg tablet,soluble active Pamela Tomlinson triamcinolone acetonide 0.1% cream completed - Sadia Ventimiglia CALCUL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 Belsomra 20 mg tablet completed - Sadia Ventimiglia CALCUL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 Vimpat 100 mg tablet active Pamela Tomlinson oxycodone 5 mg tablet completed - Sadia Ventimiglia CALCUL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 pregabalin 100 mg capsule 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 miconazole nitrate 2% cream completed - Sadia Ventimiglia CALCUL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 morphine unspecified unspecified active Pamela Tomlinson amiodarone unspecified unspecified completed - Sunil Rivera MD apixaban 5 mg tablet completed 1 tablet by mouth twice a day - Sadia Ventimiglia CALCUL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 methocarbamol 750 mg tablet active Sadia Ventimiglia CALCUL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 ziprasidone HCl 80 mg capsule active Pamela Tomlinson vilazodone 40 mg tablet active Pamela Tomlinson benztropine 1 mg tablet active Pamela Tomlinson albuterol sulfate 2.5 mg/3 mL (0.083 %) solution for nebulization completed - Sadia Ventimiglia [employer]CUL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 albuterol sulfate 90 mcg/actuation HFA aerosol inhaler active Pamela Tomlinson esomeprazole magnesium 40 mg capsule,delayed release(DR/EC) active Pamela Tomlinson SOCIAL HISTORY Date Observation Value Provider personal history of marijuana use no Sadia Ventimiglia CALCUL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 drug use no Sadia Ventimig ariane CALCUL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 alcohol use no Sadia Ventimig ariane CALCUL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 chewing tobacco use Current Sadia V entimiglia CALCUL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 smoking, 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 Sadia Ve ntimiglia CALCUL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 cigarette use yes Sadia Ventimi glia CALCUL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 smoking status Former smoker Sadia Venti miglia CALCUL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 personal history of marijuana use no Sadia Ventimiglia CALCUL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 drug use no Sadia Ventimig ariane CALCUL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 alcohol use no Sadia Ventimig ariane CALCUL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 chewing tobacco use Current Sadia V entimiglia CALCUL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 smoking, 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 Sadia Ve ntimiglia CALCUL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 cigarette use yes Sadia Ventimi glia CALCUL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 smoking status Former smoker Sadia Venti miglia [facility] social history reviewed E&M revi ewed - no changes required Sunil Rivera MD chewing tobacco use [facility], 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 Sunil gaspar MD cigarette use yes Sunil Rivera MD social history E&M Marital Statu s: Single C hildren: 0 O ccupation: Disabled Smoking History: Amilcar flannery is a former smoker. Sunil Rivera MD social history reviewed E&M revi ewed - no changes required Sunil Rivera MD pacemaker surgery, hx of Pacemaker Surger y,Hx of Sunil Rivera MD smoking status Former smoker Sunil cook MD FAMILY HISTORY Family Member Condition First Degree Blood Relative No Known Fam ronald History INSURANCE PROVIDERS Payer name Policy type / Coverage type [place] red green party ID UNITED [facility] Other AARP MEDICARE ADVANTAGE ([facility] COMPLETE PPO) Other [id number] HEALTHCARE AND FAMILY SERVICES Medicaid 1 [id number] ADVANCE DIRECTIVES Name Date DISCUSSED - NO DECISION MADE TREATMENT PLAN Date Name Performer [id number],S, Sunil Ramada n [id number],S, Sunil Ramada n [id number],S, Sunil Ramada n [id number],S, Sunil Ramada n [id number],B, Sunil Ramada n [id number],N, Sunil Ramada n [id number],S, Sunil Ramada n [id number],S, Sunil Ramada n [id number],S,S/P PPM Sunil Amayan [place] Cardiology [facility] Cardiology: H is updated medication list for this problem includes: Atorvastatin 10 Mg Tablet (Atorvastatin) ..... Take 1 tablet daily [facility] Cardiology:BP 102/68 T he following medications were removed from the medication list: Metoprolol Tartrate 25 Mg Tablet (Metoprolol tartrate) ..... Take 1/2 tablet by mouth twice daily & #13;His updated medication list for this problem includes: Metoprolol Tartrate 25 Mg Tablet (Metoprolol tartrate) ..... Take 1/2 tablet by mouth twice a day [facility] Cardiology:rhythm re gular on exam P PM with no underlying afib o ff amiodarone r emains on BB o n Eliquis for AC T he following medications were removed from the medication list: Metoprolol Tartrate 25 Mg Tablet (Metoprolol tartrate) ..... Take 1/2 tablet by mouth twice daily His updated medication list for this problem includes: Metoprolol Tartrate 25 Mg Tablet (Metoprolol tartrate) ..... Take 1/2 tablet by mouth twice a day [place] Eduin [facility] Cardiology:echo ronak ier this year showed normal appearing bioprosthetic AVR W ill continue to monitor Sadia Ventimiglia [facility] Cardiology:of unclea r etiology n o signs of volume overload t his is chronic and follows with renal [place] Mervatmiglia [facility] Cardiology [place] Ventimigl ia [facility] Cardiology: H is updated medication list for this problem includes: Atorvastatin 10 Mg Tablet (Atorvastatin) [place] Mervatmiglia [facility] Cardiology:none note d on in office device check today w ill stop amiodarone and continue to monitor The following medications were removed from the medication list: Amiodarone 200 Mg Tablet (Amiodarone) ..... Take 1 tablet by mouth once a day His updated medication list for this problem includes: Metoprolol Tartrate 25 Mg Tablet (Metoprolol tartrate) ..... 1/2 tablet twice a day [place] Luanaglsandra [facility] Cardiology:History o f endocarditis in 06/2022 s/p aortic valve replacement h e completed therapy as directed e cho today without vegetation [place] Mervatmiglia [facility] Cardiology:echo toda y showed normal appearing bioprosthetic valve E F normal W ill return in 6 mos or sooner if needed. Sadiasebastián Denny [facility] Cardiology Sunil Rivera MD Cardiology Sunil Rivera MD Cardiology Sunil Rivera MD Cardiology Sunil Rivera MD Cardiology Sunil Rivera MD Cardiology Sunil Rivera MD Cardiology Sunil Rivera MD Cardiology Sunil Rivera MD Cardiology:S/P PPM Sunil Rivera MD Date Name Complete Echo
--- OUTSIDE RECORDS SUMMARY | 2024-09-18 17:10 | XMS_ITS | Data Portability ---
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 Multiple environmental allergies Mod COPD Atrial fibrillation Multiple sclerosis Plan: The following were reviewed and explained to the patient: primary care/referral note Chest 1 view 02/24/22 LLL effusion/atelectas is Chest 1 view 04/18/22 RLL masses Chest 2 views 04/24/22 RML/RLL masses [facility] hospitalization 04/19/22 - 04/28/22 MRSA bacteremia, RML/RLL cavitary pneumonia Chest CT 01/05/22 9 mm LLL nodule PET/CT 01/13/22 no nodules or FDG avid lesions PFT 09/15/21 FEV1 1.61 L (43%), BD 80 mL = 6% PFT 09/08/22 FEV1 1.99 L (66%), BD -60 mL = -3% Lab data 12/30/21 high IgE with multiple environmental allergies Eosinophils 12/30/21 690/uL Eosinophils 09/08/22 120/uL Nicotine cessation counseling provided for 4 minutes. Callery for quitting nicotine include getting ready, getting support and encouragement, learning new skills and behaviors and being prepared to handle slips. Tips for dealing with cravings provided. Prevention of subsequent illnesses from nicotine addiction discussed. Comorbidities include but are not limited to hypertension, cerebrovascular disease, coronary heart disease, congestive heart failure, hyperlipidemia, COPD/asthma, peptic ulcer disease, esophagitis/gastri tis, and osteoporosis. Therapy options offered include: Quitting by total abstinence Receiving nicotine replacement therapy Undergoing hypnosis Filling a bupropion or varenicline prescription Enrolling in Quit For Life program Registering at [email or web address] Making a call to 7-875-OBPP-NOW ( ). A strong, clear, personalized message was given to the patient to quit smoking. The patient was urged to set a quit date. We discussed patient's barriers to quitting and I will be of assistance when patient is ready to quit. I encouraged patient to inform friends and family of plans to quit with a request for support. I encouraged the patient to remove all cigarettes from the environment. We reviewed any previous quit attempts and lessons learned from them. I encouraged total abstinence from smoking and advised the patient that drinking alcohol and/or associating with other smokers are associated with failure or relapse. Patient can enroll in [facility]'s smoking cessation class through Brenda Rendon RN at . Enrollment is free and classes are held every wednesday of the month from 1:30 pm to 2:30 pm at the conference room next to the cafeteria on the ground floor. Brainstem-related symptoms like dysphagia, dysarthria, and respiratory dysfunction can occur in multiple sclerosis. We will refer the patient to physical therapy to help improve respiratory muscle strength and endurance if dyspnea persists. Just like any other muscles in the body, the muscles of respiration can be effectively strengthened with resistance exercises. The physical therapist can assist the patient in developing an appropriate exercise program that addresses: Selection of inspiratory or expiratory system trainer. Resisted expiratory training is recommended for a weak cough while resisted inspiratory training is recommended for shortness of breath or low oxygen levels. Resistance level needed. Many of the pressure load threshold trainers available commercially are designed to improve respiratory muscle strength in athletes and they offer too much resistance for most people with multiple sclerosis. A system trainer offering low resistance is recommended. Starting level of resistance and instruction on how to progress the resistance training. Most respiratory muscle training programs take only 10 minutes/day to do, so it is easy to incorporate into the day. Inspiratory and expiratory training programs have been shown to be effective in people with neuromuscular disorder at all levels of disability. Benefits of respiratory muscle strength training include: Increased respiratory muscle strength Increased respiratory muscle endurance Decreased fatigue Improved balance, improved walking endurance, reduced respiratory infections and/or greater ability to recover from respiratory infections Dyspnea may be multifactorial, from a combination of mod COPD, atrial fibrillation, and multiple sclerosis. Referral to Dr. Elbert Ponce at [address] [place] [address], [place] [address] [place] for further evaluation and treatment of high IgE, multiple environmental allergies and eosinophilia. Minimize Albuterol nebs as needed. Continue Albuterol HFA as needed. Continue Breztri aerosphere 160/9/4.8 mcg 2 puffs BID. Gargle after use. The patient does not know how to accurately administer the inhalers. Today, the patient was shown how to take these medications. The proper technique for delivering these medications was instructed. The patient expressed a clear understanding and demonstrated back how to use these medications. Without the proper technique, the patient will not reap the benefits of these medications as the contents will not reach the lower airways as intended to be. Adherence to therapy is advocated. Nonadherence may lead to treatment failure, further progression of the condition, and other complications. Hospitals admissions are often the result of individuals not taking prescription medications accurately. Alternatively, greater adherence to medication regimens have shown to lower rates of hospitalization and decrease total medical costs in patients with chronic medical conditions. Advocated influenza vaccination annually and pneumonia vaccination ALEX. Advocated weight loss through diet and exercise. Patient's ideal body weight according to height and gender is up to 165 lbs. Encouraged patient to adjust caloric intake to maintain/achieve ideal body weight, emphasizing on fruits, vegetables, whole grains, and fat-free or low-fat products. These include lean meats, poultry, fish, beans, eggs, and nuts and foods that are low in saturated fats, trans-fats, cholesterol, salt (sodium), and glycemic index. Stressed the importance of regular exercise up to the patient's capacity limits. In this case, we recommend regular (4 x a week or more) walking or other light activity. Patient to monitor BP daily and bring records to PCP for further management. Follow-up: 1 week after sanitary napkin machine tender referral Spent 60 minutes: 1. preparing to see the patient (eg, review of tests), 2. obtaining and/or reviewing separately obtained history, 3. performing a medically appropriate examination and evaluation, 4. counseling and educating the patient, 5. ordering medications and tests, 6. documenting clinical information in the electronic health record, 7. independently interpreting results, and 8. communicating results to the patient. 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 Multiple environmental allergies Severe persistent asthma Mod COPD Atrial fibrillation Multiple sclerosis Plan: The following were reviewed and explained to the patient: Chest 1 view 02/24/22 LLL effusion/atelectas is Chest 1 view 04/18/22 RLL masses Chest 2 views 04/24/22 RML/RLL masses [facility] hospitalization 04/19/22 - 04/28/22 MRSA bacteremia, RML/RLL cavitary pneumonia Chest CT 01/05/22 9 mm LLL nodule PET/CT 01/13/22 no nodules or FDG avid lesions PFT 09/15/21 FEV1 1.61 L (43%), BD 80 mL = 6% PFT 09/08/22 FEV1 1.99 L (66%), BD -60 mL = -3% Lab data 12/30/21 high IgE with multiple environmental allergies Eosinophils 12/30/21 690/uL Eosinophils 09/08/22 120/uL Dr. Ponce note 05/04/23 Flonase started and Austenala recommended Nicotine cessation counseling provided. Callery for quitting nicotine include getting ready, getting support and encouragement, learning new skills and behaviors and being prepared to handle slips. Tips for dealing with cravings provided. Prevention of subsequent illnesses from nicotine addiction discussed. Comorbidities include but are not limited to hypertension, cerebrovascular disease, coronary heart disease, congestive heart failure, hyperlipidemia, COPD/asthma, peptic ulcer disease, esophagitis/gastri tis, and osteoporosis. Therapy options offered include: Quitting by total abstinence Receiving nicotine replacement therapy Undergoing hypnosis Filling a bupropion or varenicline prescription Enrolling in Quit For Life program Registering at [email or web address] Making a call to 5-630-GZAS-NOW ( ). A strong, clear, personalized message was given to the patient to quit smoking. The patient was urged to set a quit date. We discussed patient's barriers to quitting and I will be of assistance when patient is ready to quit. I encouraged patient to inform friends and family of plans to quit with a request for support. I encouraged the patient to remove all cigarettes from the environment. We reviewed any previous quit attempts and lessons learned from them. I encouraged total abstinence from smoking and advised the patient that drinking alcohol and/or associating with other smokers are associated with failure or relapse. Patient can enroll in [facility]'s smoking cessation class through Brenda Rendon RN at . Enrollment is free and classes are held every wednesday of the month from 1:30 pm to 2:30 pm at the conference room next to the cafeteria on the ground floor. Brainstem-related symptoms like dysphagia, dysarthria, and respiratory dysfunction can occur in multiple sclerosis. We will refer the patient to physical therapy to help improve respiratory muscle strength and endurance if dyspnea persists. Just like any other muscles in the body, the muscles of respiration can be effectively strengthened with resistance exercises. The physical therapist can assist the patient in developing an appropriate exercise program that addresses: Selection of inspiratory or expiratory system trainer. Resisted expiratory training is recommended for a weak cough while resisted inspiratory training is recommended for shortness of breath or low oxygen levels. Resistance level needed. Many of the pressure load threshold trainers available commercially are designed to improve respiratory muscle strength in athletes and they offer too much resistance for most people with multiple sclerosis. A system trainer offering low resistance is recommended. Starting level of resistance and instruction on how to progress the resistance training. Most respiratory muscle training programs take only 10 minutes/day to do, so it is easy to incorporate into the day. Inspiratory and expiratory training programs have been shown to be effective in people with neuromuscular disorder at all levels of disability. Benefits of respiratory muscle strength training include: Increased respiratory muscle strength Increased respiratory muscle endurance Decreased fatigue Improved balance, improved walking endurance, reduced respiratory infections and/or greater ability to recover from respiratory infections Dyspnea may be multifactorial, from a combination of mod COPD, atrial fibrillation, and multiple sclerosis. Follow up with Dr. Elbert Ponce at [address] [facility], [place] [address] [place] for further treatment of high IgE, multiple environmental allergies and eosinophilia. Minimize Albuterol nebs as needed. Continue Albuterol HFA as needed. Continue Reach Clothingztri zLensephere 160/9/4.8 mcg 2 puffs BID. Gargle after use. The patient does not know how to accurately administer the inhalers. Today, the patient was shown how to take these medications. The proper technique for delivering these medications was instructed. The patient expressed a clear understanding and demonstrated back how to use these medications. Without the proper technique, the patient will not reap the benefits of these medications as the contents will not reach the lower airways as intended to be. Adherence to therapy is advocated. Nonadherence may lead to treatment failure, further progression of the condition, and other complications. Hospitals admissions are often the result of individuals not taking prescription medications accurately. Alternatively, greater adherence to medication regimens have shown to lower rates of hospitalization and decrease total medical costs in patients with chronic medical conditions. Advocated influenza vaccination annually and pneumonia vaccination ALEX. Advocated weight loss through diet and exercise. Patient's ideal body weight according to height and gender is up to 165 lbs. Encouraged patient to adjust caloric intake to maintain/achieve ideal body weight, emphasizing on fruits, vegetables, whole grains, and fat-free or low-fat products. These include lean meats, poultry, fish, beans, eggs, and nuts and foods that are low in saturated fats, trans-fats, cholesterol, salt (sodium), and glycemic index. Stressed the importance of regular exercise up to the patient's capacity limits. In this case, we recommend regular (4 x a week or more) walking or other light activity. Patient to monitor BP daily and bring records to PCP for further management. 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 Multiple environmental allergies Severe persistent asthma Mild COPD Atrial fibrillation Multiple sclerosis Plan: The following were reviewed and explained to the patient: Chest 1 view 02/24/22 LLL effusion/atelectas is Chest 1 view 04/18/22 RLL masses Chest 2 views 04/24/22 RML/RLL masses [facility] hospitalization 04/19/22 - 04/28/22 MRSA bacteremia, RML/RLL cavitary pneumonia Chest CT 01/05/22 9 mm LLL nodule PET/CT 01/13/22 no nodules or FDG avid lesions PFT 09/15/21 FEV1 1.61 L (43%), BD 80 mL = 6% PFT 09/08/22 FEV1 1.99 L (66%), BD -60 mL = -3% PFT 09/16/23 FEV1 2.40 L (90%), BD 60 mL = 3% Lab data 12/30/21 high IgE with multiple environmental allergies Eosinophils 12/30/21 690/uL Eosinophils 09/08/22 120/uL Dr. Ponce note 05/04/23 Flonase started and Nucala recommended Dr. Ponce note 07/07/23 patient not ready to start Nucala Nicotine cessation counseling provided. Callery for quitting nicotine include getting ready, getting support and encouragement, learning new skills and behaviors and being prepared to handle slips. Tips for dealing with cravings provided. Prevention of subsequent illnesses from nicotine addiction discussed. Comorbidities include but are not limited to hypertension, cerebrovascular disease, coronary heart disease, congestive heart failure, hyperlipidemia, COPD/asthma, peptic ulcer disease, esophagitis/gastri tis, and osteoporosis. Therapy options offered include: Quitting by total abstinence Receiving nicotine replacement therapy Undergoing hypnosis Filling a bupropion or varenicline prescription Enrolling in Quit For Life program Registering at www[email or web address] Making a call to 8-377-FWVY-NOW ( ). A strong, clear, personalized message was given to the patient to quit smoking. The patient was urged to set a quit date. We discussed patient's barriers to quitting and I will be of assistance when patient is ready to quit. I encouraged patient to inform friends and family of plans to quit with a request for support. I encouraged the patient to remove all cigarettes from the environment. We reviewed any previous quit attempts and lessons learned from them. I encouraged total abstinence from smoking and advised the patient that drinking alcohol and/or associating with other smokers are associated with failure or relapse. Patient can enroll in [facility]'s smoking cessation class through Brenda Rendon RN at . Enrollment is free and classes are held every wednesday of the month from 1:30 pm to 2:30 pm at the conference room next to the cafeteria on the ground floor. Brainstem-related symptoms like dysphagia, dysarthria, and respiratory dysfunction can occur in multiple sclerosis. We will refer the patient to physical therapy to help improve respiratory muscle strength and endurance if dyspnea persists. Just like any other muscles in the body, the muscles of respiration can be effectively strengthened with resistance exercises. The physical therapist can assist the patient in developing an appropriate exercise program that addresses: Selection of inspiratory or expiratory system trainer. Resisted expiratory training is recommended for a weak cough while resisted inspiratory training is recommended for shortness of breath or low oxygen levels. Resistance level needed. Many of the pressure load threshold trainers available commercially are designed to improve respiratory muscle strength in athletes and they offer too much resistance for most people with multiple sclerosis. A system trainer offering low resistance is recommended. Starting level of resistance and instruction on how to progress the resistance training. Most respiratory muscle training programs take only 10 minutes/day to do, so it is easy to incorporate into the day. Inspiratory and expiratory training programs have been shown to be effective in people with neuromuscular disorder at all levels of disability. Benefits of respiratory muscle strength training include: Increased respiratory muscle strength Increased respiratory muscle endurance Decreased fatigue Improved balance, improved walking endurance, reduced respiratory infections and/or greater ability to recover from respiratory infections Dyspnea may be multifactorial, from a combination of mod COPD, atrial fibrillation, and multiple sclerosis. Follow up with Dr. Elbert Ponce at [address] [place] [address] [place] when patient is ready to start Nucala. Discontinue Albuterol nebs as needed. Continue Albuterol HFA as needed. Continue Breztri aerosphere 160/9/4.8 mcg 2 puffs BID. Gargle after use. The patient does not know how to accurately administer the inhalers. Today, the patient was shown how to take these medications. The proper technique for delivering these medications was instructed. The patient expressed a clear understanding and demonstrated back how to use these medications. Without the proper technique, the patient will not reap the benefits of these medications as the contents will not reach the lower airways as intended to be. Adherence to therapy is advocated. Nonadherence may lead to treatment failure, further progression of the condition, and other complications. Hospitals admissions are often the result of individuals not taking prescription medications accurately. Alternatively, greater adherence to medication regimens have shown to lower rates of hospitalization and decrease total medical costs in patients with chronic medical conditions. Advocated influenza vaccination annually and pneumonia vaccination ALEX. Advocated weight loss through diet and exercise. Patient's ideal body weight according to height and gender is up to 165 lbs. Encouraged patient to adjust caloric intake to maintain/achieve ideal body weight, emphasizing on fruits, vegetables, whole grains, and fat-free or low-fat products. These include lean meats, poultry, fish, beans, eggs, and nuts and foods that are low in saturated fats, trans-fats, cholesterol, salt (sodium), and glycemic index. Stressed the importance of regular exercise up to the patient's capacity limits. In this case, we recommend regular (4 x a week or more) walking or other light activity. Patient to monitor BP daily and bring records to PCP for further management. Follow-up: 1 year, September 2024 Not available 10/07/2023 15:05:32 Plan of Treatment Reminders Order Date Submit Date Provider Last Modified By Organization Details Last Modified Time Details Appointments Establish ed Patient 30 2024 01:30P Adam Shah MD Not available Not available Not available Lab None recorded. Referral sanitary napkin machine tender referral - COPD, eosinophi ariane, multiple environme ntal allergies , high IgE 2022 023 [email or web address] Sergio Ponce, [address] [facility], [place], [address], 04/28/2023 15:02:29 Procedures None recorded. Surgeries None recorded. Imaging None recorded. Medication Orders albuterol sulfate HFA 90 mcg/actua tion aerosol inhaler 2023 024 [place] [id number], [address] [place], [place], [id number], 10/07/2023 15:02:33 Breztri Aerospher e 160 mcg-9mcg- 4.8mcg/ac tuation HFA aerosol inhaler 2023 024 [place] [id number], [address] [place], [place], [id number], 10/07/2023 15:01:39 Eliquis 5 mg tablet 2023 024 [place] [facility] #[id number] [place], [id number], 07/23/2023 14:55:05 atorvasta tin 10 mg tablet 2023 024 [facility] #[id number], [address], [place], [id number], 07/23/2023 14:55:04 senna 8.6 mg tablet 2023 024 [facility] #64607, [address], [place], [id number], 07/23/2023 14:55:04 docusate sodium 100 mg capsule 2023 024 [facility] #90121, [address] [place], [place], [id number], 09/16/2023 14:17:14 esomepraz ole magnesium 40 mg capsule,d elayed release 2023 024 [facility] #04407, [address], [place], [id number], 07/23/2023 14:55:02 Trelegy Ellipta 100 mcg-62.5 mcg-25 mcg powder for inhalatio n 2023 024 [email or web address] [facility] #94600, [address], [place], [id number], 10/07/2023 14:46:18 albuterol sulfate HFA 90 mcg/actua tion aerosol inhaler 2023 024 [facility] #[id number], [address], [place], [id number], 07/15/2023 14:59:27 Breztri Aerospher e 160 mcg-9mcg- 4.8mcg/ac tuation HFA aerosol inhaler 2023 024 [place] [id number], [address], [place], [id number], 07/15/2023 14:59:19 albuterol sulfate HFA 90 mcg/actua tion aerosol inhaler [address] [facility] #26959, [address], [place], [id number], 04/21/2023 16:48:23 Breztri Aerospher e 160 mcg-9mcg- 4.8mcg/ac tuation HFA aerosol inhaler 2022 023 [place] [id number], [address], [place], [id number], 04/21/2023 16:48:27 Patient TargetsNo targets recorded. 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 for Referral Payroll Master Referral for Eosin ophil count above reference range COPD, eosinophilia, multiple environmental allergies, high IgE Referring Physician: Kyle Shah, Pulmonary Disease, Encounter Date: 04/21/2023 Results Created Date Observation Date Name Description Value Unit Range Abnormal Flag Note LastModifiedBy Organization Detail LastModifiedTime 05/11/2005/11/2023 IRON/ TIBC PANEL total iron binding capacity 293 mcg/d L 265-47 5 Not Available [facility] (Lab) [address] [place], [address], 05/11/2023 20:49:26 05/11/20 23 05/11/2023 IRON/ TIBC PANEL % transferrin saturation 41 % 20-55 Not Available [facility] (Lab) [address] [place], [address], 05/11/2023 20:49:26 05/11/20 23 05/11/2023 IRON/ TIBC PANEL unsaturated iron bind capacity 173 mcg/d L 126-38 2 Not Available [facility] (Lab) [address] [place], [address], 05/11/2023 20:49:26 05/11/20 23 05/11/2023 IRON/ TIBC PANEL iron 120 mcg/d L 42-175 Not Available [facility] (Lab) [address] [place], [address], 05/11/2023 20:49:26 05/11/20 23 05/11/2023 BASIC METAB OLIC PANEL sodium 130 mmol/ L 137-14 5 low Not Available [facility] (Lab) [address] [place], [address], 05/11/2023 20:48:20 05/11/20 23 05/11/2023 BASIC METAB OLIC PANEL potassium 4.1 mmol/ L 3.5-5. 1 Not Available [facility] (Lab) [address] [place], [address], 05/11/2023 20:48:20 05/11/20 23 05/11/2023 BASIC METAB OLIC PANEL chloride 95 mmol/ L 98-107 low Not Available [facility] (Lab) [address] [place], [address], 05/11/2023 20:48:20 05/11/20 23 05/11/2023 BASIC METAB OLIC PANEL carbon dioxide 26 mmol/ L 22-30 Not Available [facility] (Lab) [address] [place], [address], 05/11/2023 20:48:20 05/11/20 23 05/11/2023 BASIC METAB OLIC PANEL anion gap 13.1 mmol/ L 14-22 low Not Available [facility] (Lab) [address] [place], [address], 05/11/2023 20:48:20 05/11/20 23 05/11/2023 BASIC METAB OLIC PANEL glucose 122 mg/dL 70-99 high Not Available [facility] (Lab) [address] [place], [address], 05/11/2023 20:48:20 05/11/20 23 05/11/2023 BASIC METAB OLIC PANEL BUN 5 mg/dL 8-19 low Not Available [facility] (Lab) [address] [place], [address], 05/11/2023 20:48:20 05/11/20 23 05/11/2023 BASIC METAB OLIC PANEL creatinine 0.83 mg/dL 0.66-1 .25 Not Available [facility] (Lab) [address] [place], [address], 05/11/2023 20:48:20 05/11/20 23 05/11/2023 BASIC METAB OLIC PANEL GFR >60 Refer ence Range : [place] ge GFR Healt hy Adult : >60 mL/mi n/1.7 3 m2 Chron ic Kidne y Disea se: 15-60 mL/mi n/1.7 3 m2 Kidne y Failu re: <15/m L/min /1.73 m2 www.n iddk. nih.g ov The MDRD study equat ion has not been valid ated in child lety <18 years of age; pregn ant women ; the elder ly >85 years of age; or in some racia l or ethni c subgr oups, such as Hispa nics. Outsi de the valid ated diana eters , estim ated GFR is less accur ate, requi ring clini jerry judgm ent on a case- by-ca se basis . Clini jerry inter preta tion for other races and ages must be made by the clini flaca. The MDRD study equat ion has not been valid ated for the evalu ation of serum creat inine relat ed to nutri rajat l statu s or medic ation usage . For perso ns <18 years of age, a pedia tric GFR calcu jefe is avail able on the [facility] websi te: https ://annamarie w.kid fransisca.o rg/pr ofess ional s/kdo qi/gf r_cal culat or Not Available [facility] (Lab) [address] [place], [address], 05/11/2023 20:48:20 05/11/20 23 05/11/2023 BASIC METAB OLIC PANEL calcium 9.0 mg/dL 8.4-10 .2 Not Available [facility] (Lab) [address] [place], [address], 05/11/2023 20:48:20 05/11/20 23 05/11/2023 LIPID PANEL cholesterol 134 mg/dL 140-19 9 low NIH MAHESH NSUS RECOM MENDA TION FOR JOHANNY STERO L: ADULT CHILD LOW RISK: <200 <170 BORDE RLINE : <200- 239 ----- HIGH RISK: >240 >200 Not Available [facility] (Lab) [address] [place], [address], 05/11/2023 20:48:25 05/11/20 23 05/11/2023 LIPID PANEL triglyceride s 73 mg/dL 0-150 NIH MAHESH NSUS REPOR T RECOM MENDA TION FOR TRIGL YCERI HE: ADULT CHILD LOW RISK: <150 ----- BODER LINE: 150-1 99 ----- HIGH RISK: >200 ----- Not Available [facility] (Lab) [address] [place], [address], 05/11/2023 20:48:25 05/11/20 23 05/11/2023 LIPID PANEL HDL cholesterol 52 mg/dL 40- Not Available [facility] (Lab) [address] [place] [address], [address], 05/11/2023 20:48:25 05/11/20 23 05/11/2023 LIPID PANEL LDL cholesterol, calculated 67 mg/dL 0-130 NIH MAHESH NSUS REPOR T RECOM MENDA TIONS FOR LDL: ADULT CHILD LOW RISK <130 <110 (OPTI MAL LDL) <100 ----- BORDE RLINE : 130-1 59 ----- HIGH RISK: >160 >130 A TRIGL YCERI DE RESUL T >400 INVAL IDATE S THE CALCU LATIO N FOR LDL FRACT IONAT ION - THE LDL RESUL T WILL NOT BE REPOR RINA. Not Available [facility] (Lab) [address] [place], [address], 05/11/2023 20:48:25 05/11/20 23 05/11/2023 HEPAT IC/LI GOLDIE PANEL alkaline phosphatase 97 U/L 38-126 Not Available [facility] (Lab) [address] [place], [address], 05/11/2023 20:48:30 05/11/20 23 05/11/2023 HEPAT IC/LI GOLDIE PANEL alanine aminotransfe rase 24 U/L 0-50 Not Available [facility] (Lab) [address] [place], [address], 05/11/2023 20:48:30 05/11/20 23 05/11/2023 HEPAT IC/LI GOLDIE PANEL aspartate aminotransfe rase 27 U/L 15-46 Not Available [facility] (Lab) [address] [place], [address], 05/11/2023 20:48:30 05/11/20 23 05/11/2023 HEPAT IC/LI GOLDIE PANEL bilirubin, total 0.70 mg/dL 0.20-1 .30 Not Available [facility] (Lab) [address] [place], [address], 05/11/2023 20:48:30 05/11/20 23 05/11/2023 HEPAT IC/LI GOLDIE PANEL bilirubin, conjugated (direct) 0.00 mg/dL 0.00-0 .30 Not Available [facility] (Lab) [address] [place], [address], 05/11/2023 20:48:30 05/11/20 23 05/11/2023 HEPAT IC/LI GOLDIE PANEL biliurubin,u ncong. (indirect) 0.50 mg/dL 0.00-1 .1 Not Available [facility] (Lab) [address] [place], [address], 05/11/2023 20:48:30 05/11/20 23 05/11/2023 HEPAT IC/LI GOLDIE PANEL total protein 6.9 g/dL 6.3-8. 2 Not Available [facility] (Lab) [address] [place], [address], 05/11/2023 20:48:30 05/11/20 23 05/11/2023 HEPAT IC/LI GOLDIE PANEL albumin 4.3 g/dL 3.4-5. 0 Not Available [facility] (Lab) [address] [place], [address], 05/11/2023 20:48:30 05/11/20 23 05/11/2023 HEPAT IC/LI GOLDIE PANEL globulin 2.6 g/dL 2.6-4. 2 Not Available [facility] (Lab) [address] [place], [address], 05/11/2023 20:48:30 05/11/20 23 05/11/2023 HEPAT IC/LI GOLDIE PANEL A/G ratio 1.7 ratio 1.0-2. 0 Not Available [facility] (Lab) [address] [place], [address], 05/11/2023 20:48:30 05/11/20 23 05/11/2023 CBC/C OMPLE TE BLD COUNT W/DIF F white blood cells 6.6 x10'3 /uL 4.2-10 .8 Not Available [facility] (Lab) [address] [place], [address], 05/11/2023 20:52:49 05/11/20 23 05/11/2023 CBC/C OMPLE TE BLD COUNT W/DIF F red blood cells 3.43 x10'6 /uL 4.10-5 .80 low Not Available [facility] (Lab) [address] [place], [address], 05/11/2023 20:52:49 05/11/20 23 05/11/2023 CBC/C OMPLE TE BLD COUNT W/DIF F hemoglobin 11.0 g/dL 13.2-1 7.0 low Not Available [facility] (Lab) [address] [place], [address], 05/11/2023 20:52:49 05/11/20 23 05/11/2023 CBC/C OMPLE TE BLD COUNT W/DIF F hematocrit 32.7 % 39.3-5 0.0 low Not Available [facility] (Lab) [address] [place], [address], 05/11/2023 20:52:49 05/11/2005/11/2023 CBC/C OMPLE TE BLD COUNT W/DIF F mean red cell volume 95.3 fL 80.0-9 7.0 Not Available [facility] (Lab) [address] [place], [address], 05/11/2023 20:52:49 05/11/20 23 05/11/2023 CBC/C OMPLE TE BLD COUNT W/DIF F mean red cell hemoglobin 32.1 pg 27.0-3 3.0 Not Available [facility] (Lab) [address] [place], [address], 05/11/2023 20:52:49 05/11/20 23 05/11/2023 CBC/C OMPLE TE BLD COUNT W/DIF F mean RBC HGB concentratio n 33.6 g/dL 31.0-3 6.0 Not Available [facility] (Lab) [address] [place], [address], 05/11/2023 20:52:49 05/11/20 23 05/11/2023 CBC/C OMPLE TE BLD COUNT W/DIF F red cell distribution width 14.1 % 11.8-1 5.5 Not Available [facility] (Lab) [address] [place], [address], 05/11/2023 20:52:49 05/11/2005/11/2023 CBC/C OMPLE TE BLD COUNT W/DIF F platelets 302 x10'3 /uL 150-40 0 Not Available [facility] (Lab) [address] [place], [address], 05/11/2023 20:52:49 05/11/20 23 05/11/2023 CBC/C OMPLE TE BLD COUNT W/DIF F mean platelet volume 10.6 fL 9.0-12 .4 Not Available [facility] (Lab) [address] [place], [address], 05/11/2023 20:52:49 05/11/2005/11/2023 CBC/C OMPLE TE BLD COUNT W/DIF F neutrophils 63.5 % 39.0-7 2.0 Not Available [facility] (Lab) [address] [place], [address], 05/11/2023 20:52:49 05/11/20 23 05/11/2023 CBC/C OMPLE TE BLD COUNT W/DIF F lymphocytes 21.8 % 16.0-4 7.0 Not Available [facility] (Lab) [address] [place], [address], 05/11/2023 20:52:49 05/11/20 23 05/11/2023 CBC/C OMPLE TE BLD COUNT W/DIF F monocytes 6.1 % 5.0-12 .0 Not Available [facility] (Lab) [address] [place], [address], 05/11/2023 20:52:49 05/11/20 23 05/11/2023 CBC/C OMPLE TE BLD COUNT W/DIF F eosinophils 6.9 % 1.0-7. 0 Not Available [facility] (Lab) [address] [place], [address], 05/11/2023 20:52:49 05/11/20 23 05/11/2023 CBC/C OMPLE TE BLD COUNT W/DIF F basophils 1.2 % 0.0-2. 0 Not Available [facility] (Lab) [address] [place], [address], 05/11/2023 20:52:49 05/11/20 23 05/11/2023 CBC/C OMPLE TE BLD COUNT W/DIF F immature granulocytes 0.5 % 0.00-0 .50 Not Available [facility] (Lab) [address] [place], [address], 05/11/2023 20:52:49 05/11/20 23 05/11/2023 CBC/C OMPLE TE BLD COUNT W/DIF F neutrophils, absolute count 4.17 x10'3 /uL 1.5-8. 0 Not Available [facility] (Lab) [address] [place], [address], 05/11/2023 20:52:49 05/11/20 23 05/11/2023 CBC/C OMPLE TE BLD COUNT W/DIF F lymphocytes, absolute count 1.43 x10'3 /uL 1.07-3 .43 Not Available [facility] (Lab) [address] [place], [address], 05/11/2023 20:52:49 05/11/20 23 05/11/2023 CBC/C OMPLE TE BLD COUNT W/DIF F monocytes, absolute count 0.40 x10'3 /uL 0.29-0 .99 Not Available [facility] (Lab) [address] [place], [address], 05/11/2023 20:52:49 05/11/20 23 05/11/2023 CBC/C OMPLE TE BLD COUNT W/DIF F eosinophils, absolute count 0.45 x10'3 /uL 0.02-0 .53 Not Available [facility] (Lab) [address] [place], [address], 05/11/2023 20:52:49 05/11/20 23 05/11/2023 CBC/C OMPLE TE BLD COUNT W/DIF F basophils, absolute count 0.08 x10'3 /uL 0.01-0 .08 Not Available [facility] (Lab) [address] [place], [address], 05/11/2023 20:52:49 05/11/20 23 05/11/2023 CBC/C OMPLE TE BLD COUNT W/DIF F immature granulocytes ,absolute 0.03 x10'3 /uL 0.00-0 .05 Not Available [facility] (Lab) [address] [place], [address], 05/11/2023 20:52:49 05/11/20 23 05/11/2023 CBC/C OMPLE TE BLD COUNT W/DIF F nucleated red blood cells 0.0 % -0 Not Available [facility] (Lab) [address] [place], [address], 05/11/2023 20:52:49 05/11/20 23 05/11/2023 CBC/C OMPLE TE BLD COUNT W/DIF F NRBC# 0.00 x10'3 /uL Not Available [facility] (Lab) [address] [place], [address], 05/11/2023 20:52:49 05/11/20 23 05/11/2023 JUAN TIN ferritin 96 NG/mL 17.9-4 64 Not Available [facility] (Lab) [address] [place], [address], 05/11/2023 21:12:36 05/11/20 23 05/12/2023 HEMOG LOBIN A1C HA1C 5.5 % 4.0-6. 0 Diabe orestes Scree roshni Crite ailyn: <5.7% Consi stent with absen ce of diabe orestes 5.7-6 .4% Consi stent with incre ased risk for diabe orestes (pred iabet es) >OR=6 .5% Consi stent with diabe orestes REFER ENCE: Diabe orestes Care 2016, 39(Taylor ppl.1 ):s13 -s22 Not Available Not Available 05/12/2023 14:07:25 07/05/19 24 07/05/2023 BASIC METAB OLIC PANEL sodium 120 mmol/ L 137-14 5 low Not Available [facility] (Lab) [address] [place], [address], 07/05/2023 15:02:50 07/05/19 24 07/05/2023 BASIC METAB OLIC PANEL potassium 4.6 mmol/ L 3.5-5. 1 Not Available [facility] (Lab) [address] [place], [address], 07/05/2023 15:02:50 07/05/19 24 07/05/2023 BASIC METAB OLIC PANEL chloride 86 mmol/ L 98-107 low Not Available [facility] (Lab) [address] [place], [address], 07/05/2023 15:02:50 07/05/19 24 07/05/2023 BASIC METAB OLIC PANEL carbon dioxide 25 mmol/ L 22-30 Not Available [facility] (Lab) [address] [place], [address], 07/05/2023 15:02:50 07/05/19 24 07/05/2023 BASIC METAB OLIC PANEL anion gap 13.6 mmol/ L 14-22 low Not Available [facility] (Lab) [address] [place], [address], 07/05/2023 15:02:50 07/05/19 24 07/05/2023 BASIC METAB OLIC PANEL glucose 113 mg/dL 70-99 high Not Available [facility] (Lab) [address] [place], [address], 07/05/2023 15:02:50 07/05/19 24 07/05/2023 BASIC METAB OLIC PANEL BUN 9 mg/dL 8-19 Not Available [facility] (Lab) [address] [place], [address], 07/05/2023 15:02:50 07/05/19 24 07/05/2023 BASIC METAB OLIC PANEL creatinine 0.71 mg/dL 0.66-1 .25 Not Available [facility] (Lab) [address] [place], [address], 07/05/2023 15:02:50 07/05/19 24 07/05/2023 BASIC METAB OLIC PANEL GFR >60 Refer ence Range : [place] ge GFR Healt hy Adult : >60 mL/mi n/1.7 3 m2 Chron ic Kidne y Disea se: 15-60 mL/mi n/1.7 3 m2 Kidne y Failu re: <15/m L/min /1.73 m2 www.n iddk. nih.g ov The MDRD study equat ion has not been valid ated in child lety <18 years of age; pregn ant women ; the elder ly >85 years of age; or in some racia l or ethni c subgr oups, such as Hispa nics. Outsi de the valid ated diana eters , estim ated GFR is less accur ate, requi ring clini jerry judgm ent on a case- by-ca se basis . Clini jerry inter preta tion for other races and ages must be made by the clini flaca. The MDRD study equat ion has not been valid ated for the evalu ation of serum creat inine relat ed to nutri rajat l statu s or medic ation usage . For perso ns <18 years of age, a pedia tric GFR calcu lator is avail able on the F websi te: https ://annamarie w.kid fransisca.o rg/pr ofess ional s/kdo qi/gf r_cal culat or Not Available [facility] (Lab) [address] [place], [address], 07/05/2023 15:02:50 07/05/19 24 07/05/2023 BASIC METAB OLIC PANEL calcium 9.5 mg/dL 8.4-10 .2 Not Available [facility] (Lab) [address] [place], [address], 07/05/2023 15:02:50 06/15/19 24 06/15/2023 , echo ardio gram No observ ation record ed. [email or web address] [facility] [address] , [place], [address], 06/17/2023 15:53:26 09/20/19 24 09/16/2023 pre/p ost bronc hodil ator waldo metry * No observ ation record ed. BARCODE Not Available 2023 15:49:37 01/20/20 24 01/20/2024 CT, scano gram, w/o contr ast No observ ation record ed. [email or web address] [facility] [address], [place], [address], 07/17/2024 09:31:05 Result Notes None recorded. Problems Name Problem SNOMED Code Status Onset Date Resolution Date Notes Provider Name and Address Organization Details Recorded Time Seizure disorder 483764517 Active 2019 Not Available [employer] 3 01:24:11 Multiple sclerosis 15862934 Active 2019 Not Available [facility] 3 01:24:11 Anemia 339046922 Active 2021 Not Available [facility] 3 01:24:11 Bipolar I disorder 727716267 Active 2019 Not Available [facility] 3 01:24:11 Neuropathy 163665086 Active 2019 Not Available [facility] 3 01:24:11 Neurogenic urinary bladder 710011650 Active 2021 Not Available [facility] 3 01:24:11 Anxiety 67552389 Active 2019 Not Available [facility] 3 01:24:11 Diabetes mellitus 12494178 Active 2020 Not Available [facility] 3 01:24:12 Nodule of lung 664685624 Active 2021 Not Available [facility] 3 01:24:12 Hyponatrem ia 84465752 Active 2021 Not Available [facility] 3 01:24:12 Endocardit is 44782183 Active 2022 Not Available [facility] 3 01:24:12 Hyperlipid emia 87808284 Active 2022 Not Available [facility] 3 01:24:12 Cardiac pacemaker in situ 806761280 Active 2022 Not Available [facility] 3 01:24:11 History of aortic valve replacemen t 6381381154322 Active 2022 Not Available [facility] 3 01:24:11 Eosinophil count above reference range 471403571 Active 2022 Kyle Shah MD [address], [address], [place], [address] , [employer] [facility] [employer] [facility] 3 16:37:40 Smoker 23728541 Active 2022 Kyle Shah MD [address], [address], [place], [address] , [facility] [employer] [facility] [employer] [facility] 3 17:47:28 Chronic hyponatrem ia 87129848 Active 2023 MARLENA Angela [address], [address], [place], [address] , [employer] 4 12:46:12 Notes:Medical History: Epile psy Multiple sclerosis Left cerebellar encephalomalacia Hyponatremia Bipolar depression/Anxiety Perennial rhinitis to multiple environmental allergens with postnasal drip IgE 571 IU/mL Eosinophils 690 -> 120/uL Severe persistent asthma AAT PiMM 157 mg% Nicotine use Mod COPD Obesity T2DM with neuropathy Hyperlipidemia Hypertension EF 60% Mild LAE AV MSSA endocarditis Atrial fibrillation on amiodarone & Eliquis DARRIAN Neurogenic bladder Sternal body fracture Severe lumbar spondylosis Procedure History: Right Port-A-Cath placement 2021 Right Port-A-Cath removal 2021 AV replacement 2022 Pacemaker/ICD placement 2022 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 Procedures Surgical History Date Name Laterality Status Provider Name and Address Organization Details Recorded Time 3 Transitional_Ca re_Management completed DG Renner [address], [address], [place], [address], [employer] 08/04/2022 18:07:01 3 replacement of aortic valve completed DG Renner [address], [address], [place], [address], [employer] 08/04/2022 16:45:08 3 Pacemaker completed DG Renner [address], [address], [place], [address], [employer] 08/04/2022 16:45:27 Imaging Results Imaging Date Name Status LastModified by Organization Details LastModified Time 06/15/2023 [facility] [address], [place], [address], 06/17/2023 15:53:26 09/16/2023 pre/post bronchodilator spirometry* completed BARCODE Information not available 09/20/2023 15:49:37 01/20/2024 CT, scanogram, w/o contrast completed [email or web address] [facility] [address], [place], [address], 07/17/2024 09:31:05 Procedure Notes None recorded. Medical Equipment None Reported. Allergies Allergen ID Allergen Name Allergen Category Reaction Reaction Severity Criticality Documentation Date Start Date Code Code System Note Provider Name and Address Organization Details Recorded Time 3599 Soma medicatio n Not available Not available Not available 07/22/2022 70471 2 RxNorm Not Available [facility] 3 02:46:29 3600 phenobarb ital medicatio n Not available Not available Not available 07/22/2022 8134 RxNorm Not Available [facility] 3 02:46:29 3602 Lamictal medicatio n Not available Not available Not available 07/22/2022 04247 2 RxNorm Not Available [facility] 3 02:46:29 3604 gabapenti n medicatio n Not available Not available Not available 07/22/2022 61989 RxNorm Not Available [facility] 3 02:46:29 3605 Buspar medicatio n Not available Not available Not available 07/22/2022 24042 0 RxNorm Not Available [facility] 3 02:46:29 3607 baclofen medicatio n Not available Not available Not available 07/22/2022 1292 RxNorm Not Available [facility] 3 02:46:29 30794 Non-stero idal anti-infl ammatory agent (product) medicatio n Not available Not available Not available 04/21/2023 78680 005 SNOMED LINNEA Smith, [facility] 3 15:47:13 71128 Dilantin medicatio n Not available Not available Not available 04/21/2023 0 RxNorm LINNEA Smith [facility] 3 15:47:33 39300 bupropion Not available Not available Not available Not available 04/21/2023 05415 RxNorm LINNEA Smith [facility] 3 15:47:56 99413 carisopro dol medicatio n Not available Not available Not available 04/21/2023 2101 RxNorm LINNEA Smith, [facility] 3 15:48:10 15955 celecoxib medicatio n Not available Not available Not available 04/21/2023 09050 7 RxNoLINNEA Howard, [facility] 3 15:48:18 79649 tramadol medicatio n Not available Not available Not available 04/21/2023 39838 RxNorm LINNEA Smith, [facility] 3 15:48:38 36342 varenicli ne Not available Not available Not available Not available 04/21/2023 77674 2 RxNoLINNEA Howard, [facility] 3 15:48:58 Medications Name Sig Start Date Stop Date Status Note LastModified by Organization Details LastModified Time ziprasidone 80 mg capsule TAKE 1 CAPSULE BY MOUTH TWICE DAILY WITH FOOD active Not Available Not Available No t Available methocarbam ol 500 mg tablet TAKE 1 TABLET BY MOUTH EVERY 8 HOURS NEEDED active Not Available Not Available No t Available metformin 500 mg tablet TAKE ONE TABLET BY MOUTH TWICE A DAY WITH FOOD 10/28 completed Not Available Not Available Not Available acetaminoph en 325 mg tablet Take 2 tablets every 6 hours by oral route. 04/21 completed Not Available Not Available Not Available doxycycline hyclate 100 mg capsule Take 1 capsule twice a day by oral route for 7 days. 08/04 completed Not Available Not Available Not Available benztropine 0.5 mg tablet TAKE 1 TABLET BY MOUTH TWICE DAILY active Not Available Not Available No t Available albuterol sulfate 2.5 mg/3 mL (0.083 %) solution for nebulizatio n USE 3 ML VIA NEBULIZER THREE TIMES DAILY DIRECTED 07/15 completed Not Available Not Available Not Available Normal Saline Flush 0.9 % injection syringe Use to flush central line catheter( s) 12/29 completed Not Available Not Available Not Available atorvastati n 10 mg tablet TAKE 1 TABLET BY MOUTH DAILY active Not Available Not Available No t Available azithromyci n 250 mg tablet TAKE 2 TABLETS BY MOUTH ON DAY 1 THEN TAKE 1 TABLET ON DAYS 2-5 04/21 completed Not Available Not Available Not Available amiodarone 200 mg tablet TAKE 1 TABLET BY MOUTH EVERY DAY 07/15 completed Not Available Not Available Not Available levetiracet am 500 mg tablet 08/04 completed Not Available Not Available Not Available senna 8.6 mg tablet TAKE 2 TABLETS BY MOUTH TWICE DAILY active Not Available Not Available No t Available prednisone 20 mg tablet TAKE 2 TABLETS BY MOUTH ONCE DAILY X5DAYS 04/21 completed Not Available Not Available Not Available sodium chloride 1 gram tablet Take 1 tablet every day by oral route for 30 days. 04/21 completed Not Available Not Available Not Available clonazepam 1 mg tablet TAKE 1 TABLET BY MOUTH THREE TIMES DAILY NEEDED active Not Available Not Available No t Available penicillin V potassium 500 mg tablet TAKE ONE TABLET 4 TIMES DAILY UNTIL ALL TAKEN 09/18 completed Not Available Not Available Not Available olanzapine 2.5 mg tablet TAKE 1 TABLET BY MOUTH EVERY NIGHT AT BEDTIME active Not Available Not Available No t Available hydrocodone 10 mg-acetamin ophen 325 mg tablet 09/18 completed Not Available Not Available Not Available triamcinolo ne acetonide 0.1 % topical cream 12/09 completed Not Available Not Available Not Available sodium chloride 5 % HYPERTONIC intravenous solution Inject 500 mL every week by intraveno us route. 04/21 completed Not Available Not Available Not Available levothyroxi ne 100 mcg tablet TAKE 1 TABLET BY MOUTH EVERY DAY IN THE MORNING ON AN EMPTY STOMACH active Not Available Not Available No t Available amoxicillin 875 mg tablet Take 1 tablet every 12 hours by oral route for 7 days. active Not Available Not Available No t Available potassium chloride ER 20 mEq tablet,exte nded release(par t/cryst) 08/04 completed Not Available Not Available Not Available methocarbam ol 750 mg tablet TAKE 1 TABLET BY MOUTH EVERY 8 HOURS active Not Available Not Available No t Available metformin 1,000 mg tablet 08/22 completed Not Available Not Available Not Available esomeprazol e magnesium 40 mg capsule,del ayed release TAKE 1 CAPSULE BY MOUTH DAILY active Not Available Not Available No t Available benztropine 1 mg tablet TAKE 1 TABLET BY MOUTH TWICE DAILY active Not Available Not Available No t Available docusate sodium 100 mg capsule TAKE ONE CAPSULE BY MOUTH THREE TIMES DAILY active Not Available Not Available No t Available gabapentin 300 mg capsule 01/19 completed Not Available Not Available Not Available morphine ER 15 mg tablet,exte nded release TAKE 1 TABLET BY MOUTH EVERY 12 HOURS active Not Available Not Available No t Available codeine 10 mg-guaifene sin 100 mg/5 mL oral liquid Take 10 mL 4 times a day by oral route as needed. 08/22 completed Not Available Not Available Not Available furosemide 20 mg tablet active Not Available Not Available Not Available sodium chloride 0.9 % intravenous solution 08/04 completed Not Available Not Available Not Available epinephrine 0.3 mg/0.3 mL injection, auto-inject or ADMINISTE R 0.3 ML IN THE MUSCLE 1 TIME NEEDED FOR ANAPHYLAX IS active Not Available Not Available No t Available oxycodone-a cetaminophe n 7.5 mg-325 mg tablet TAKE 1 TABLET EVERY 8 HOURS NEEDED FOR PAIN 09/18 completed Not Available Not Available Not Available albuterol sulfate HFA 90 mcg/actuati on aerosol inhaler INHALE 1 PUFF BY MOUTH EVERY 4 HOURS NEEDED active Not Available Not Available No t Available doxycycline hyclate 100 mg tablet Take 1 tablet twice a day by oral route for 7 days. 07/23 completed Not Available Not Available Not Available mometasone 0.1 % topical cream 09/18 completed Not Available Not Available Not Available oxycodone 5 mg tablet TAKE 1 TABLET BY MOUTH THREE TIMES DAILY NEEDED FOR BREAKTHRO UGH PAIN. MUST LAST AT LEAST 30 DAYS 01/19 completed Not Available Not Available Not Available Rebif (with albumin) 44 mcg/0.5 mL subcutaneou s syringe Inject 0.5 mL 3 times a week by subcutane ous route. 12/09 completed Not Available Not Available Not Available metoprolol tartrate 25 mg tablet TAKE 1/2 TABLET BY MOUTH TWICE DAILY active Not Available Not Available No t Available Flovent HFA 44 mcg/actuati on aerosol inhaler Inhale 2 puffs twice a day by inhalatio n route. 04/21 completed Not Available Not Available Not Available calcium 500 mg (as carbonate)- vitamin D3 5 mcg (200 unit) tablet Take 1 tablet every day by oral route. 2022 active Not Available Not Available Not Avai lable vitamin E (dl, acetate) 45 mg (100 unit) capsule Take 1 capsule every day by oral route. active Not Available Not Available No t Available pregabalin 75 mg capsule TAKE 1 CAPSULE BY MOUTH THREE TIMES DAILY 04/21 completed Not Available Not Available Not Available pregabalin 100 mg capsule TAKE 1 CAPSULE BY MOUTH THREE TIMES DAILY active Not Available Not Available No t Available pregabalin 150 mg capsule TAKE 1 CAPSULE BY MOUTH FOUR TIMES DAILY 04/21 completed Not Available Not Available Not Available heparin, porcine (PF) 100 unit/mL (1 mL) intravenous solution Use 1ml weekly to flush central line 08/04 completed Not Available Not Available Not Available sodium chloride 1,000 mg soluble tablet TAKE 2 TABLETS BY MOUTH THREE TIMES DAILY active Not Available Not Available No t Available lacosamide 150 mg tablet TAKE 1 TABLET BY MOUTH TWICE DAILY active Not Available Not Available No t Available Vimpat 100 mg tablet TAKE ONE TABLET TWICE DAILY 04/21 completed Not Available Not Available Not Available buprenorphi ne 10 mcg/hour weekly transdermal patch 08/04 completed Not Available Not Available Not Available vilazodone 40 mg tablet TAKE 1 TABLET BY MOUTH EVERY DAY active Not Available Not Available No t Available vilazodone 20 mg tablet active Not Available Not Available Not Available OneTouch Verio test strips 04/21 completed Not Available Not Available Not Available magnesium 400 mg (as magnesium oxide) capsule Take 1 capsule every day by oral route. 2022 active Not Available Not Available Not Avai lable Eliquis 5 mg tablet TAKE 1 TABLET BY MOUTH TWICE DAILY active Not Available Not Available No t Available potassium chloride ER 20 mEq tablet,exte nded release Take 2 tablets every day by oral route for 5 days. 08/04 completed Not Available Not Available Not Available Aptiom 200 mg tablet TAKE ONE TABLET TWICE DAILY active Not Available Not Available No t Available Belsomra 20 mg tablet TAKE 1 TABLET BY MOUTH EVERY DAY AT BEDTIME 07/15 completed Not Available Not Available Not Available OneTouch Verio Flex Meter 04/21 completed Not Available Not Available Not Available nicotine (polacrilex ) 2 mg buccal mini lozenge Place 1 lozenge every 2 hours by buccal route for 30 days. 04/21 completed Not Available Not Available Not Available Austedo 12 mg tablet bid 06/04 completed Not Available Not Available Not Available Trelegy Ellipta 100 mcg-62.5 mcg-25 mcg powder for inhalation Inhale 1 puff every day by inhalatio n route. 10/06 completed Not Available Not Available Not Available OneTouch Ultra Blue Test Strip 04/21 completed Not Available Not Available Not Available OneTouch Delica Plus Lancet 33 gauge 04/21 completed Not Available Not Available Not Available Nucala 100 mg/mL subcutaneou s auto-inject or 07/15 completed Not Available Not Available Not Available Afluria Qd 2019- (36 mos up)(PF)60 mcg (15 mcg x4)/0.5 mL IM syringe 12/29 completed Not Available Not Available Not Available Breztri Aerosphere 160 mcg-9mcg-4. 8mcg/actuat ion HFA aerosol inhaler INHALE 2 PUFFS BY MOUTH TWICE DAILY DIRECTED active Not Available Not Available No t Available BinaxNOW COVID-19 Ag Self Test kit TEST DIRECTED TODAY 04/21 completed Not Available Not Available Not Available Vitals Date Recorded Body height Body mass index (BMI) Body weight Body temperature Heart rate Oxygen saturation Oxygen saturation in Arterial blood by Pulse oximetry Systolic blood pressure Diastolic blood pressure Provider Name and Address Organization Details Last Updated DateTime 3 172.72 cm 30.3 kg/m2 58599.8 8 g 98.2 [degF] 75 /min 97 % 97 % 122 mm[Hg] 82 mm[Hg] Albertina Watson MA [place] [employer] [facility]og 3 15:55:00 Date Recorded Heart rate Respiratory rate Provider N princess and Address Organization Details Last Updated DateTime 04/21/2023 75 /min 15 /min Kyle Shah MD [address], [facility] [address], [place], [address], [place] [employer] [facility] [employer] 04/21/2023 16:49:24 Date Recorded Body height Provider Name an d Address Organization Details Last Updated DateTime 05/11/2023 172.72 cm Michaela Arellano CMA [facility] [employer] [facility] 05/11/2023 16:59:11 Date Recorded Body height Body mass index (BMI) Body weight Body temperature Heart rate Oxygen saturation Oxygen saturation in Arterial blood by Pulse oximetry Systolic blood pressure Diastolic blood pressure Provider Name and Address Organization Details Last Updated DateTime 4 172.72 cm 29.2 kg/m2 63663.4 5 g 97.5 [degF] 88 /min 98 % 98 % 120 mm[Hg] 76 mm[Hg] Sumi Dhillon MA [facility] [employer] [facility] 4 14:39:58 Date Recorded Heart rate Respiratory rate Provider N princess and Address Organization Details Last Updated DateTime 07/15/2023 88 /min 14 /min Kyle Shah MD [address], [place], [address], [facility] [employer] [facility] 07/15/2023 15:08:09 Date Recorded Body height Body mass index (BMI) Body weight Body temperature Heart rate Oxygen saturation Oxygen saturation in Arterial blood by Pulse oximetry Systolic blood pressure Diastolic blood pressure Provider Name and Address Organization Details Last Updated DateTime 4 172.72 cm 29.3 kg/m2 14950.3 3 g 98.2 [degF] 79 /min 94 % 94 % 120 mm[Hg] 82 mm[Hg] Rayna Philippe RN [facility] [employer] [facility] 4 12:41:42 Date Recorded Body height Body mass index (BMI) Body weight Body temperature Heart rate Oxygen saturation Oxygen saturation in Arterial blood by Pulse oximetry Systolic blood pressure Diastolic blood pressure Provider Name and Address Organization Details Last Updated DateTime 4 172.72 cm 28.1 kg/m2 75044.5 9 g 97.7 [degF] 82 /min 95 % 95 % 108 mm[Hg] 66 mm[Hg] Albertina Watson MA [facility] [employer] [facility] 4 14:50:30 Date Recorded Respiratory rate Heart rate Provider N princess and Address Organization Details Last Updated DateTime 10/07/2023 15 /min 82 /min Kyle Shah MD [address], [address], [place], [address], [place] [facility] 10/07/2023 15:10:41 Social History Question Answer Notes LastModified by Organization Details LastModified Time Tobacco Smoking Status Former Smoker Not Available [facility] 07/22/2022 02:34:04 Do You Have An Advance Directive? No MIGRATION.0301 [id number] Information not available 07/22/2022 What Is Your Level Of Alcohol Consumption? None MIGRATION.030 [id number] Information not available 07/22/2022 What Is Your Level Of Caffeine Consumption? Heavy MIGRATION.030 [id number] Information not available 07/22/2022 In The 14 Days Before Symptom Onset, Have You Had Close Contact With A Laboratory-confi rmed COVID-19 While That Case Was Ill? No MIGRATION.030 [id number] Information not available 07/22/2022 In The 14 Days Before Symptom Onset, Have You Had Close Contact With A Person Who Is Under Investigation For COVID-19 While That Person Was Ill? No MIGRATION.0301 [id number] Information not available 07/22/2022 What Type Of Diet Are You Following? REGULAR MIGRATION.030 868893 Information not available 07/22/2022 Do You Or Have You Ever Used E-cigarettes Or Vape? Current User Of Electronic Cigarettes Information not available 03/11/2023 Do You Have An Electrostatic Air Filter? No Information not available 07/15/2023 Have There Been Any Changes To Your Family Or Social Situation? No MIGRATION.0301 416245 Information not available 07/22/2022 What Is The Fluoride Status Of Your Home? Unknown MIGRATION.0301 421260 Information not available 07/22/2022 When Did You Quit Smoking? 1-5yearssincelmilka stoner MIGRATION.0301 871745 Information not available 07/22/2022 Are There Any Guns Present In Your Home? No MIGRATION.0301 553650 Information not available 07/22/2022 Do You Have A Humidifier? No Information not available 07/15/2023 Do You Use Insect Repellent Routinely? No MIGRATION.0301 178244 Information not available 07/22/2022 Where Do You Live? SingleLevelHouse Information not available 07/15/2023 Do You Have A Medical Power Of Production Support Consultant? No MIGRATION.0301 570227 Information not available 07/22/2022 Do You Have Moisture Problems In Your Home? No Information not available 07/15/2023 What Was The Date Of Your Most Recent Tobacco Screening? 10/07/2023 [email or web address] Information not available 10/07/2023 Do You Have Any Pets? Yes Cat In The Home MIGRATION.0301 076848 Information not available 07/22/2022 What Is Your Relationship Status? Single MIGRATION.0301 [id number] Information not available 07/22/2022 Do You Use Your Seat Belt Or Car Seat Routinely? Yes MIGRATION.0301 253290 Information not available 07/22/2022 Do You Have Smoke And Carbon Monoxide Detectors In Your Home? Yes MIGRATION.0301 931189 Information not available 07/22/2022 At What Age Did You Start Smoking Tobacco? 15 MIGRATION.0301 224087 Information not available 07/22/2022 Are You Passively Exposed To Smoke? No MIGRATION.0301 068512 Information not available 07/22/2022 Are There Any Smokers In Your House? No MIGRATION.0301 813325 Information not available 07/22/2022 Do You Feel Stressed (tense, Restless, Nervous, Or Anxious, Or Unable To Sleep At Night)? [id number] Information not available 07/15/2023 Do You Use Any Illicit Or Recreational Drugs? No MIGRATION.0301 534453 Information not available 07/22/2022 Do You Use Sunscreen Routinely? No MIGRATION.0301 083672 Information not available 07/22/2022 Has Tobacco Cessation Counseling Been Provided? No MIGRATION.0301 688953 Information not available 07/22/2022 How Many Years Have You Smoked Tobacco? 16 MIGRATION.0301 530857 Information not available 07/22/2022 Have You Recently Traveled Abroad? No MIGRATION.0301 382056 Information not available 07/22/2022 Do You Have Any Dietary Restrictions? No MIGRATION.0301 821037 Information not available 07/22/2022 Do You Or Have You Ever Used Any Other Forms Of Tobacco Or Nicotine? Yes Information not available 03/11/2023 Sex: Unknown Functional Status Question Answer Note LastModified by Organizat ion Details LastModified Time What is your exercise level? Occasional [id number] Information not available 07/22/2022 Mental Status None recorded. Family History Relationship Description Onset Age of this Age Resolved Age Notes LastModified by Organization Details LastModified Time Father Diabetes mellitus MIGRATION.060 [id number] Not available 07/22/2022 02:34:26 Maternal Aunt Diabetes mellitus MIGRATION.360 [id number] Not available 07/22/2022 02:34:26 Mother Hypertensive disorder MIGRATION.881 [id number] Not available 07/22/2022 02:34:26 Father Heart disease Not available 2022 16:28:05 Father Parkinson's disease Not available 2022 16:29:11 Mother Malignant tumor of breast Not available 2022 16:28:18 Paternal Grandmother Malignant tumor of breast Not available 2022 16:28:24 Paternal Grandmother Neoplasm of brain Not available 2022 16:28:47 Paternal Grandmother Malignant neoplasm of lung Not available 2022 16:28:57 Sister Malignant neoplasm of lung Not available 2022 16:28:34 Paternal Uncle Malignant neoplasm of lung Not available 2022 16:29:19 Paternal Aunt Asthma Not availa ble 07/11/2023 13:47:54 Medical History Condition Response BLINDNESS N RHEUMATIC FEVER N KIDNEY STONES N BLADDER PROBLEMS N MRSA N OTHER # 1 N POLIO N LUNG DISEASE/DISORDER N COPD N RADIATION / CHEMOTHERAPY N Other # 2 N BLOOD DISEASES N SURGERY N EAR OR HEARING PROBLEMS N MUMPS N BOWEL PROBLEMS N FEMALE PROBLEMS / INFECTIONS N DEPRESSION (INCLUDING POST ) Y STROKE/TIA N THYROID DISEASE N ULCERS N BENIGN PROSTATIC HYPERPLASIA N MEASLES N CERVICALGIA N TB SKIN TEST N MYOCARDIAL INFARCTION N PARAPELGIA N OBESITY N GERD/NAUSEA N ANEURYSM N URINARY/BLADDER/KIDNEY PROBLEMS N CORONARY ARTERY DISEASE (CAD) N MENIERE'S DISEASE N ADDICTION CONCERNS N ENDOMETRIOSIS N USE OF BLOOD THINNERS N SKIN PROBLEMS N EMPHYSEMA N GASTROINTESTINAL DISORDER N MUSCLE,JOINT OR BONE PROBLEMS N GASTROINTESTINAL BLEEDING N BLOOD CLOTS N ASTHMA N CATARACTS N ERECTILE DYSFUNCTION N GI PROBLEMS N CHF N Low Testosterone N NEUROPATHY N INFERTILITY N AIDS/HIV N FRACTURES N CHEMOTHERAPY / RADIATION N VISION/EYE PROBLEMS N LIVER DISEASE N MALE HYPOGONADISM N HYPERTENSION N ANXIETY DISORDER N BLOOD TRANSFUSION N ANEMIA/BLOOD DISORDER N CHRONIC EAR INFECTIONS N BRONCHITIS N TUBERCULOSIS N GLAUCOMA N FOOT PROBLEM N DIVERTICULITIS N CHICKENPOX N SLEEP APNEA N ALLERGIES/HAYFEVER N INFECTIOUS DISEASE N HEART ARRHYTHMIA N PROSTATE N INSOMNIA N HIGH CHOLESTEROL / HYPERLIPIDEMIA N HYPERTHYROIDISM N EYE PROBLEMS N EATING DISORDER N NEUROLOGICAL PROBLEMS N EDEMA N CHRONIC PAIN SYNDROME N HYPOTHYROIDISM N CAROTID BLOCKAGE N CONSTIPATION N BACK / NECK PROBLEMS N HAVE YOU BEEN HOSPITALIZED OR SEEN IN [facility] IN THE PAST YEAR ? N ATHEROSCLEROSIS N BREAST PROBLEMS N DIALYSIS N ECZEMA N FIBROMYALGIA N OSTEOPOROSIS N ARTHRITIS N NO SIGNIFICANT PAST MEDICAL HISTORY N APPENDICITIS N DIABETES, TYPE Y BAD TEETH N HEARTBURN / REFLUX N ADD/ADHD N AUTISM SPECTRUM DISORDER (ASD) N HEPATITIS / LIVER DISEASE N PULMONARY DISEASE N GOUT N SLEEP DISORDER N ALZHEIMER'S DISEASE N PAIN N HERPES N DEMENTIA N HEADACHES/MIGRAINES N SEIZURES/EPILEPSY Y VASCULAR DISEASE N PACEMAKER N DIZZINESS N HEART DISEASE/HEART PROBLEMS N KIDNEY DISEASE N DEVELOPMENTAL OR BEHAVIORAL DISORDERS N MULTIPLE SCLEROSIS N SCARLET FEVER N MENTAL DISORDER/ILLNESS N CARDIAC ARRHYTHMIA N CANCER: SPECIFY N PNEUMONIA N ATRIAL FIBRILLATION N Gall Stones N PULMONARY EMBOLISM N AUTOIMMUNE DISEASE N Immunizations Vaccine Type Date Status Note Provider Nam e and Address Organization Details Recorded Time Influenza, split virus, quadrivalent, preservative 1 completed Not Available [facility] 03/24/2023 01:24:14 COVID-19 vaccine, vector-nr, rS-Ad26, PF, 0.5 mL 1 completed ANIYA Robles, [place] [facility] 04/13/2023 16:43:56 pneumococcal polysaccharide PPV23 1 completed Not Available [facility] 03/24/2023 01:24:14 Pneumococcal conjugate PCV 13 0 completed ANIYA Robles, [place] - [employer] [facility] 04/13/2023 16:43:56 Past Encounters Encounter ID Performer Location Encounter Start Date Encounter Closed Date Diagnosis/Indication Diagnosis SNOMED-CT Code Diagnosis ICD10 Code Diagnosis Note [id number] [facility] Primary Care [address] [place] [address] 08/22/2020 00:00:00 08/22/2020 14:36:02 [id number] [facility] [place] [address] [place] [address] 02/25/2021 00:00:00 02/25/2021 18:45:43 [id number] [facility] [place] [address] [place] [address] 06/04/2021 00:00:00 06/04/2021 15:22:43 [id number] [facility] [place] [address] [place] [address] 06/17/2021 00:00:00 06/17/2021 20:09:59 [id number] [facility] [place] [address] [place] [address] 08/14/2021 00:00:00 08/14/2021 18:15:29 [id number] [facility] [place] [address] [place] [address] 08/28/2021 00:00:00 08/28/2021 20:19:05 [id number] [facility] [place] [address] [place] [address] 09/18/2021 00:00:00 09/18/2021 19:52:32 [id number] [facility] [place] [address] [place] [address] 09/25/2021 00:00:00 09/25/2021 22:33:49 [id number] [facility] [place] [address] [place] [address] 10/16/2021 00:00:00 10/16/2021 19:27:15 [id number] [facility] [place] [address] [place] [address] 11/13/2021 00:00:00 11/13/2021 15:03:02 [id number] [facility] [place] [address] [place] [address] 12/03/2021 00:00:00 12/03/2021 16:51:33 [id number] [facility] [place] [address] [place] [address] 12/09/2021 00:00:00 12/09/2021 15:44:05 [id number] [facility] [place] [address] [place] [address] 12/18/2021 00:00:00 12/18/2021 11:18:43 [id number] [facility] [place] [address] [place] [address] 12/29/2021 00:00:00 01/08/2022 10:08:38 [id number] [facility] [place] [address] [place] [address] 01/09/2022 00:00:00 01/09/2022 14:08:19 [id number] [facility] [place] [address] [place] [address] 01/22/2022 00:00:00 01/22/2022 19:20:36 [id number] [facility] [place] [address] [place] [address] 02/27/2022 00:00:00 02/27/2022 14:34:21 [id number] [facility] [place] [address] [place] [address] 03/03/2022 00:00:00 03/03/2022 14:06:44 [id number] [facility] [place] [address] [place] [address] 04/15/2022 00:00:00 04/15/2022 14:09:52 [id number] [facility] [place] [address] [place] [address] 05/12/2022 00:00:00 05/12/2022 17:29:52 [id number] DG Renner [facility] [place] [address] [facility] [facility] [address] [place] [address] 08/04/2022 15:41:58 08/04/2022 16:44:04 Transition of care [id number] 105 Z75.8 Facility: [facility] Will ission Date: 05/26/22Disc harge Date: 08/01/22Rev iewed/kenneth nciled medication lists.RTO 4 weeks for f/u. Endocarditis [id number] I3 8 Improving following IV abx in hospitalWi generate referral. History of aortic valve replacement 5716313104 100 Z95.4 New finding s/p open heart surgery (06/09/22)S ternal and left pectoral (pacemaker ) incisions healing well.Was seen by cardiology on 07/21/22. Has f/u appt with Dr. Rivera in September.Pt is poor candidate for warfarin d/t associated dietary restrictio ns and need for routine lab monitoring . Pts chronic health conditions necessitat e reduction of blood draws to reduce risk of weakness/f alls and weekly lab draws would be a burden d/t transporta tion restrictio ns.Continu e Eliquis 5mg BID Cardiac pa cemaker in situ [id number] Z95.0 New finding on examPacema ker s/p open heart surgery and aortic valve replacemen t (06/09/22)L eft chest wall incision healing well.Keep scheduled appt with cardiology (Dr. Rivera), September 2022. Muscle weakness 35107466 M62.81 R29.6 Chronic, secondary to known MS and recent episode of endocardit is necessitat ing aortic valve replacemen t and placement of pacemaker. Per pts , he has had several falls since returning home earlier this week. Encouraged pt to use walker for all ambulation . Will refer back to PT/OT. Multiple sclerosis 18183 007 G35 ChronicPre viously discussed with pt that MS is a chronic, progressiv e disorder. Pts current mobility issues are direct result of disease progressio n and are exacerbate d by hyponatrem ia. Pt aware that medication cannot stop the disease progressio n, but can reduce severity and slow progressio n.Continue to f/u with Neuro (Dr. Tejeda).Ocrev us no longer covered by insurance, neuro working to get Tysarbi approved instead.Wi ll give an additional refill of pain meds pending appt with pain management . Pt aware this is only to hold him over until his next pain management visit. He has been advised that we are no longer offering long-term pain management . Chronic hyponatremia 503 65859 E87.1 Chronicna 131 (02/27/22); per hospital labs: 132 (04/19/22) ; 138 (04/20/22) ; 138 (04/26/22)P revious improvemen t with IV saline infusions through central port.Chau nue sodium supplement s as directed. Hyperlipidemia 73236843 E78.5 Renewal of prescription 413982240 Z76.0 [id number] DG [facility] Pulmonolo gy [place] [address] [place] [address] 08/14/2022 14:16:51 08/17/2022 08:43:21 Dyspnea on exertion 50552058 R06.09 RAST with multiple positives and IGE elevatedRe peat IGE levelCheck eosinophil sThis is multifacto ralVape cessation Chronic ob structive pulmonary disease [id number] J44.9 PFT in chart with severe obstructio n - FEV1 41%11% improvemen t after BDAir trapping and hyperinfla tion.Overl ap syndromeCo ntinue Trelegy Ellipta 100 for now, although may need nebulized medication in the future R/T respirator y muscle weaknessIn structed on techniqueR epeat PFTAlpha1 normal MMDiscusse d reportable signs and symptoms Nicotine dependence 5629 4008 Z87.891 E-cigarett e cessation counseling and techniques reviewed at length.Lit erature reviewed.A void triggers, support groups.Dis traction techniques Greater than 3 but less than 10 minutes spent discussing cessation. 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 clement office (ID). Will renew referral. Muscle weakness 45058202 M62.81 R29.6 Chronic, secondary to known MS and recent episode of endocardit is necessitat ing aortic valve replacemen t and placement of pacemaker. Per pts , he has had several falls since returning home earlier this week. Encouraged pt to use walker for all ambulation . Continue with PT/OT. Multiple sclerosis 97809 007 G35 ChronicPre viously discussed with pt that MS is a chronic, progressiv e disorder. Pts current mobility issues are direct result of disease progressio n and are exacerbate d by hyponatrem ia. Pt aware that medication cannot stop the disease progressio n, but can reduce severity and slow progressio n.Continue to f/u with Neuro (Dr. Tejeda).Keep scheduled f/u with neuro in Jan.Ocrev us no longer covered by insurance, neuro working to get Tysarbi approved instead.Wi ll give an additional refill of pain meds pending appt with pain management . Pt aware this is only to hold him over until his next pain management visit. He has been advised that we are no longer offering long-term pain management . Cardiac pa emmy in situ [id number] Z95.0 New finding on examPacema ker s/p open heart surgery and aortic valve replacemen t (06/09/22)L eft chest wall incision healing well.Keep scheduled appt with cardiology (Dr. Rivera), September 2022. History of aortic valve replacement [id number] 100 Z95.4 S/p open heart surgery (06/09/22)S ternal and left pectoral (pacemaker ) incisions healing well.Was seen by cardiology on 07/21/22. Has f/u appt with Dr. Rivera in September.Pt is poor candidate for warfarin d/t associated dietary restrictio ns and need for routine lab monitoring . Pts chronic health conditions necessitat e reduction of blood draws to reduce risk of weakness/f alls and weekly lab draws would be a burden d/t transporta tion restrictio ns.Continu e Eliquis 5mg BID Chronic hyponatremia 503 88723 E87.1 Chronicna 131 (02/27/22); per hospital labs: 132 (04/19/22) ; 138 (04/20/22) ; 138 (04/26/22); 136 (05/12/22) Previous improvemen t with IV saline infusions through central port.Chau nue sodium supplement s as directed pending updated lab results. [id number] DG Renner [facility] Jorge tran [address] [facility] [address] [place] [address] 09/18/2022 14:53:54 09/18/2022 16:14:29 Chronic hyponatremia 67279902 E87.1 Chronicna 131 (02/27/22); per hospital labs: 132 (04/19/22) ; 138 (04/20/22) ; 138 (04/26/22); 136 (05/12/22) ; 124 09/08/22)In crease po nacl to BID dosing. Encouraged pt to reduce fluid intake.Pre vious improvemen t with IV saline infusions through central port. If pt unable to manage intake on his own. May need to consider resumption of IV infusions. Endocarditis [id number] I3 8 Pt is asymptomat ic and has completed course of tx.Pt did not receive call from Dr. clement office ([place]). Renewed referral last visit. New referral for Dr. Conway in [place]. Referral printed for pt and caregiver to schedule. Muscle weakness 45723946 M62.81 R29.6 Chronic, secondary to known MS and recent episode of endocardit is necessitat ing aortic valve replacemen t and placement of pacemaker. Encouraged pt to use walker for all ambulation . Continue with PT/OT. Multiple sclerosis 47040 007 G35 ChronicPre viously discussed with pt that MS is a chronic, progressiv e disorder. Pts current mobility issues are direct result of disease progressio n and are exacerbate d by hyponatrem ia. Pt aware that medication cannot stop the disease progressio n, but can reduce severity and slow progressio n.Continue to f/u with Neuro (Dr. Tejeda).Keep scheduled f/u with neuro in Jan.Ocrev us no longer covered by insurance, neuro working to get Tysarbi approved instead. Diabetes mellitus 854660 09 E11.9 Current status sdezbygG3Z 5.8 (324/22)D iscussed need for regular exercise, increase intake of water/vege tables/fib er. Decrease intake of carbs, especially white rice/pasta /flour/mesfin ad/sugar. [id number] Sheila Shane, MUSEUM HOST/HOSTESS-BC [facility] [place] Pulmonolo gy Karon Woo [address] [place] [address] 10/14/2022 13:56:08 10/14/2022 15:48:37 Chronic obstructive pulmonary disease 70255399 J44.9 PFT in chart with severe obstructio n - FEV1 41%11% improvemen t after BDAir trapping and hyperinfla tion.Overl ap syndromeRe peat completed 08/2022 with ratio 67 and FEV1 66TLC 125Start Breztri with aerochambe r R/T respirator y muscle weaknessIn structed on techniqueH e is aware to rinse and spit after useAlpha1 normal MMDiscusse d reportable signs and symptoms Dyspnea on exertion 6084 5006 R06.09 RAST with multiple positives and IGE elevatedIG E level and Eosinophil s normalThis is multifacto ralVape cessation History of repair of mitral valve [id number] Z98.890 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 Continue lozengesDi scussed Rx options if needed in the future.Neg ative PET-CT 12/2021 Multiple sclerosis 88464 007 G35 Continue to f/u with Neuro (Dr. Tejeda).Frequ ent reassessme nt for nebulized medication s [id number] DG Renner [facility] [address] [facility] [address] [place] [address] 10/29/2022 15:37:54 10/29/2022 17:12:12 Multiple sclerosis 79079081 G35 ChronicPre viously discussed with pt that MS is a chronic, progressiv e disorder. Pts current mobility issues are direct result of disease progressio n and are exacerbate d by hyponatrem ia. Pt aware that medication cannot stop the disease progressio n, but can reduce severity and slow progressio n.Continue to f/u with Neuro (Dr. Tejeda).Keep scheduled f/u with neuro in Jan. Chronic hyponatremia 503 99623 E87.1 Chronicna 131 (02/27/22); per hospital labs: 132 (04/19/22) ; 138 (04/20/22) ; 138 (04/26/22); 136 (05/12/22) ; 124 09/08/22); 128 (10/01/22)C ontinue po nacl to BID dosing. Encouraged pt to reduce fluid intake.Pre vious improvemen t with IV saline infusions through central port. If pt unable to manage intake on his own. May need to consider resumption of IV infusions. Diabetes mellitus 721418 09 E11.9 Chronic, wlajckC9N 5.8 (08/14/21); 6.1 (10/01/22)N o medication indicated at this time. Endocarditis 23107653 I3 8 Pt is asymptomat ic and completed course of tx.Pt did not receive call from Dr. clement office ([place]). Renewed referral previously , but pt still has not been able to schedule. New referral for Dr. Conway in [place]. Referral printed for pt and caregiver to schedule, our office staff to f/u tomorrow. [id number] DG Renner [facility] [address] [place] [address] 11/17/2022 14:59:45 11/17/2022 16:11:14 Multiple sclerosis 55011234 G35 ChronicPre viously discussed with pt that MS is a chronic, progressiv e disorder. Pts current mobility issues are direct result of disease progressio n and are exacerbate d by hyponatrem ia. Pt aware that medication cannot stop the disease progressio n, but can reduce severity and slow progressio n.Continue to f/u with Neuro (Dr. Tejeda).Keep scheduled f/u with neuro in Jan. Chronic hyponatremia 503 32194 E87.1 Chronicna 131 (02/27/22); per hospital labs: 132 (04/19/22) ; 138 (04/20/22) ; 138 (04/26/22); 136 (05/12/22) ; 124 09/08/22); 128 (10/01/22); 122 (10/29/22)In crease po nacl to TID dosing. Encouraged pt to reduce fluid intake to no more than 1L per day. Very concerned for developmen t of diabetes insipidus. Previous improvemen t with IV saline infusions through central port. If pt unable to manage intake on his own. Recommend resumption of IV infusions. Will check ekg in office today. If appropriat e, will move forward with outpt infusions. Pt originally agreed to go to ER if EKG was abnormal, but then declined once EKG was found to be abnormal. Discussed with pt and aunt at length that he is at high risk for cardiac dysfunctio n, including [place]. Advised he is only showing sinus rhythm due to his pacemaker. Pt still declines to be seen in ER. Endocarditis 66611805 I3 8 ResolvedPt is asymptomat ic and completed course of tx.Per patient and aunt, they were able to reach Dr. Clement who has released him from care and advised no additional f/u needed unless recommende d by Dr. Rivera. Diabetes mellitus 153165 09 E11.9 Chronic, mfuyzgL9A 5.8 (08/14/21); 6.1 (10/01/22)N o medication indicated at this time. Excessive thirst 9698750 7 R63.1 New problemCon tinue po nacl to BID dosing. Encouraged pt to reduce fluid intake to no more than 1L per day. Very concerned for developmen t of diabetes insipidus. Previous improvemen t of hyponatrem ia with IV saline infusions through central port. Recommend resumption of IV infusions at least weekly. [id number] DG Renner [facility] Jorge tran [address] [facility] [address] [place] [address] 12/15/2022 15:44:42 12/15/2022 16:11:10 Chronic hyponatremia 65689507 E87.1 Chronicna 131 (02/27/22); per hospital labs: 132 (04/19/22) ; 138 (04/20/22) ; 138 (04/26/22); 136 (05/12/22) ; 124 09/08/22); 128 (10/01/22); 122 (10/29/22)Co ntinue po nacl BID dosing. Encouraged pt to reduce fluid intake to no more than 1L per day. Very concerned for developmen t of diabetes insipidus. Continue with weekly saline infusions pending updated lab results. Excessive thirst 8364128 7 R63.1 New problemCon tinue po nacl to BID dosing. Encouraged pt to reduce fluid intake to no more than 1L per day. Very concerned for developmen t of diabetes insipidus. Previous improvemen t of hyponatrem ia with IV saline infusions through central port. Continue with weekly infusions pending updated lab results. Multiple sclerosis 26092 007 G35 ChronicPre viously discussed with pt that MS is a chronic, progressiv e disorder. Pts current mobility issues are direct result of disease progressio n and are exacerbate d by hyponatrem ia. Pt aware that medication cannot stop the disease progressio n, but can reduce severity and slow progressio n.Continue to f/u with Neuro (Dr. Tejeda).Keep scheduled f/u with neuro in [id number] DG Renner [facility] [address] [place] [address] 01/19/2023 14:08:41 01/19/2023 14:54:21 Daytime hypersomnia 8498356915 9102 G47.19 New problemAun t concerned that pt sleeps all day; however, pt has irregular sleep schedule and takes multiple medication s that have depressant s/e.Scores 12 on [place] Scale (see scanned documentat ion)Discus sed with pt and aunt that he does appear to need f/u with sleep provider, but suspect sx are more likely to multiple medication s that cause somnolence (morphine, pregabalin , clonazepam , lacosamide , methocarba mol, vilazodone , Vimpat, ziprasidon e).Will refer for home sleep study and plan to refer to sleep medicine if negative for apnea. Chronic hyponatremia 503 44355 E87.1 Chronicna 131 (02/27/22); per hospital labs: 132 (04/19/22) ; 138 (04/20/22) ; 138 (04/26/22); 136 (05/12/22) ; 124 09/08/22); 128 (10/01/22); 122 (10/29/22); 123 (12/15/22)C ontinue po nacl BID dosing. Encouraged pt to reduce fluid intake to no more than 1L per day. Very concerned for developmen t of diabetes insipidus. Continue with weekly saline infusions pending updated lab results. Excessive thirst 1989726 7 R63.1 New problemCon tinue po nacl to BID dosing. Encouraged pt to reduce fluid intake to no more than 1L per day. Very concerned for developmen t of diabetes insipidus. Previous improvemen t of hyponatrem ia with IV saline infusions through central port. Continue with weekly infusions pending updated lab results. Multiple sclerosis 36787 007 G35 ChronicPre viously discussed with pt that MS is a chronic, progressiv e disorder. Pts current mobility issues are direct result of disease progressio n and are exacerbate d by hyponatrem ia. Pt aware that medication cannot stop the disease progressio n, but can reduce severity and slow progressio n.Continue to f/u with Neuro (Dr. Tejeda).Keep scheduled f/u with neuro in [facility] [address] [place] [address] 03/11/2023 14:48:15 03/11/2023 15:45:16 Daytime hypersomnia [id number] 9102 G47.19 No improvemen t since last visit.Aunt concerned that pt sleeps all day; however, pt has irregular sleep schedule and takes multiple medication s that have depressant s/e.Scores 12 on [place] Scale (see scanned documentat ion)Discus sed with pt and aunt that he does appear to need f/u with sleep provider, but suspect sx are more likely to multiple medication s that cause somnolence (morphine, pregabalin , clonazepam , lacosamide , methocarba mol, vilazodone , Vimpat, ziprasidon e).Pt unable to complete home sleep study and declines in-lab study. Will refer to sleep medicine for further evaluation . Chronic hyponatremia 503 68072 E87.1 Chronic, not improvingn a 131 (02/27/22); per hospital labs: 132 (04/19/22) ; 138 (04/20/22) ; 138 (04/26/22); 136 (05/12/22) ; 124 09/08/22); 128 (10/01/22); 122 (10/29/22); 123 (12/15/22); 125 (02/03/23)C ontinue po nacl BID dosing. Encouraged pt to reduce fluid intake to no more than 1L per day. Very concerned for developmen t of diabetes insipidus. Will change weekly saline infusions from normal saline to hypertonic saline. Excessive thirst 1721769 7 R63.1 No improvemen t since last visit. Continue po nacl to BID dosing. Encouraged pt to reduce fluid intake to no more than 1L per day. Very concerned for developmen t of diabetes insipidus. Previous improvemen t of hyponatrem ia with IV saline infusions through central port. Will change weekly infusions from normal saline to hypertonic saline instead. Will also check ADH. Multiple sclerosis 98728 007 G35 ChronicPre viously discussed with pt that MS is a chronic, progressiv e disorder. Pts current mobility issues are direct result of disease progressio n and are exacerbate d by hyponatrem ia. Pt aware that medication cannot stop the disease progressio n, but can reduce severity and slow progressio n.Continue to f/u with Neuro (Dr. Tejeda). [id number] ALFREDO Oconnor [facility] [address] [place] [address] 04/13/2023 16:37:27 04/13/2023 17:10:44 Chronic hyponatremia 76135933 E87.1 Still going to infusion therapy center twice a week.Reche ck sodium levels. Last visit he was changed from normal saline to hypertonic saline. Chronic, not improvingn a 131 (02/27/22); per hospital labs: 132 (04/19/22) ; 138 (04/20/22) ; 138 (04/26/22); 136 (05/12/22) ; 124 09/08/22); 128 (10/01/22); 122 (10/29/22); 123 (12/15/22); 125 (02/03/23)C ontinue po nacl BID dosing. Encouraged pt to reduce fluid intake to no more than 1L per day. Very concerned for developmen t of diabetes insipidus. Will change weekly saline infusions from normal saline to hypertonic saline. Excessive thirst 4712682 7 R63.1 ADH unable to be drawn last visit. Will get labs re-drawn today.Infu sions were changed from normal saline to hypertonic saline last visit, mild improvemen t. 03/11/23: No improvemen t since last visit. Continue po nacl to BID dosing. Encouraged pt to reduce fluid intake to no more than 1L per day. Very concerned for developmen t of diabetes insipidus. Previous improvemen t of hyponatrem ia with IV saline infusions through central port. Will change weekly infusions from normal saline to hypertonic saline instead. Will also check ADH. Daytime hypersomnia 3177 017553 8393 G47.19 Pt. refused to continue with sleep medicine referral and sleep study. 03/11/23: No improvemen t since last visit.Aunt concerned that pt sleeps all day; however, pt has irregular sleep schedule and takes multiple medication s that have depressant s/e.Scores 12 on [place] Scale (see scanned documentat ion)Discus sed with pt and aunt that he does appear to need f/u with sleep provider, but suspect sx are more likely to multiple medication s that cause somnolence (morphine, pregabalin , clonazepam , lacosamide , methocarba mol, vilazodone , Vimpat, ziprasidon e).Pt unable to complete home sleep study and declines in-lab study. Will refer to sleep medicine for further evaluation . Multiple sclerosis 36480 007 G35 Currently working with Dr. Tejeda to start managing MS. Has appointmen t in April. 03/11/23: ChronicPre viously discussed with pt that MS is a chronic, progressiv e disorder. Pts current mobility issues are direct result of disease progressio n and are exacerbate d by hyponatrem ia. Pt aware that medication cannot stop the disease progressio n, but can reduce severity and slow progressio n.Continue to f/u with Neuro (Dr. Tejeda). [id number] Kyle Shah MD [facility] [address] [address] 04/21/2023 15:23:27 04/22/2023 16:16:13 Eosinophil count above reference range 887647034 D72.10 Moderate c hronic obstructive pulmonary disease 140283545 J44.9 Smoker 57025890 F17.218 F17.219 Z87.738 [id number] Steph Iglesias MD [facility] Primary Care [facility] [address] [facility] [address] [place] [address] 05/11/2023 16:34:20 05/11/2023 17:00:03 [id number] Kyle Shah MD [facility] Pulmonolo gy [address] [place] [address] 07/15/2023 14:30:22 07/22/2023 10:08:44 Eosinophil count above reference range 945910732 D72.10 Moderate c hronic obstructive pulmonary disease 482632522 J44.9 Smoker 94481317 F17.218 F17.219 Z87.972 [id number] LISA AngelaP-Ramila [facility] Primary Care [facility] [address] [facility] [address] [place] [address] 07/23/2023 12:31:56 07/23/2023 13:00:05 Chronic hyponatremia 31137711 E87.1 -chronic, not controlled -Na 120 on 07/05, sodium being adjusted per Dr. Porter (nephrolog y)-decline s labs today-Next f/u with nephrology is 07/29 Daytime hypersomnia 3177 021566 0354 G47.19 -chronic, stable-He is currently being followed by psych, f/u later this month-also being followed by neuro, last f/u was yesterday, will now be transferri ng to [facility] for MS study 03/11/23: No improvemen t since last visit.Aunt concerned that pt sleeps all day; however, pt has irregular sleep schedule and takes multiple medication s that have depressant s/e.Scores 12 on [place] Scale (see scanned documentat ion)Discus sed with pt and aunt that he does appear to need f/u with sleep provider, but suspect sx are more likely to multiple medication s that cause somnolence (morphine, pregabalin , clonazepam , lacosamide , methocarba mol, vilazodone , Vimpat, ziprasidon e).Pt unable to complete home sleep study and declines in-lab study. Will refer to sleep medicine for further evaluation . Renewal of prescription 616899309 Z76.0 Hyperlipidemia 66934954 E78.5 History of aortic valve replacement 1287771417 100 Z95.4 -chronic, stable with use of meds-refil l eliquis [id number] Kyle Shah MD [facility] [address] [address] 10/07/2023 14:33:52 10/08/2023 08:32:25 Eosinophil count above reference range 258406598 D72.10 Moderate c hronic obstructive pulmonary disease 202447634 J44.9 Smoker 76581215 F17.218 F17.219 Z87.891 Health Concerns Section Related Observation LastModified by Organization Detai ls LastModified Time None Recorded Concern Status LastModified by Organization Details LastModified Time None Recorded Advance Directives Directive N: Payers Encounter Date Sequence Insurance Name Policy Number Policy Goode Covered Member ID Goode Member ID Guarantor Name 04/21/2023 1 [facility] (MEDICARE REPLACEMENT/AD VANTAGE - PPO) [id number] Jd Enriquez [id number] Jd Enriquez 04/21/2023 2 [place] OR MEDICARE REPLACEMENT PRIMARY) Jd Enriquez [id number] Jd Enriquez 05/11/2023 1 [facility] (MEDICARE REPLACEMENT/AD VANTAGE - PPO) [id number] Jd Enriquez [id number] Jd Enriquez 05/11/2023 2 [place] OR MEDICARE REPLACEMENT PRIMARY) Jd Enriquez [id number] Jd Enriquez 07/15/2023 1 [facility] (MEDICARE REPLACEMENT/AD VANTAGE - PPO) [id number] Jd Enriquez [id number] Jd Enriquez 07/15/2023 2 [place] OR MEDICARE REPLACEMENT PRIMARY) Jd Enriquez [id number] Jd Enriquez 07/23/2023 1 [facility] (MEDICARE REPLACEMENT/AD VANTAGE - PPO) [id number] Jd Enriquez [id number] Jd Enriquez 07/23/2023 2 [place] OR MEDICARE REPLACEMENT PRIMARY) Jd Yipborn [id number] Jd Enriquez 10/07/2023 1 [facility] (MEDICARE REPLACEMENT/AD VANTAGE - PPO) [id number] Jd Enriquez [id number] Jd Enriquez 10/07/2023 2 [place] WHEN [place] OR MEDICARE REPLACEMENT PRIMARY) Jd Enriquez [id number] Jd Enriquez Notes Date Note Type Note Provider Name and Address Organization Details Recorded Time 04/21/2023 text/html Primary care/Ref erring provider: DG Renner Patient is here to go over his COPD management. Initial development of shortness of breath: 2019Duration of shortness of breath: 4 yearsCondition of shortness of breath: stableTiming of shortness of breath: afternoonFrequency: up to 1 time a dayLimits activities: yesAggravating factors: walkingAlleviating factors: rest Modified [employer] [place] (mMRC) Dyspnea Scale - Grade 2Grade 0 I only get breathless with strenuous exercise .Grade 1 I get short of breath when hurrying on the level or walking up a slight hill .Grade 2 I walk slower than people of the same age on the level because of breathlessness or have to stop for breath when walking at my own pace on the level .Grade 3 I stop for breath after walking about 100 yards or after a few minutes on the level .Grade 4 I am too breathless to leave the house or I am breathless when dressing . Treatment history: Albuterol HFA as needed since 2018Albuterol nebs as needed since 2021 Flovent HFA 44 mcg 2 puffs BID 2021 onlyTrelegy 100/62.5/25 mcg 1 puff daily 2021-reztri aerosphere 160/9/4.8 mcg 2 puffs BID since 2022 Other symptoms:Drooling: yesDysarthria: noNeck pain: noOdynophagia: noDysphagia: yesWeak mastication: noFacial weakness: noNasal speech: noProtruding tongue: noProductive cough: clearWheezing: noChest tightness: yesOrthopnea: noFrequent throat clearing or swallowing: yesPalpitations: noHeartburn: noEdema: no Environmental exposures:Nicotine smoke: 1 ppd [id number] = 27 years, vaping since 2017Paint: noDye: noDust mites: yesMold: noDamp basement: noWood burning stove: noAnimal dander: catCockroaches: noPollen: yesArsenic: noAsbestos: noBeryllium: noCadmium: noChromium: noCoal smoke: noDiesel fumes: noNickel: noSilica: noSoot: no EPWORTH SLEEPINESS SCALE (ESS) CHANCE OF DOZING SCORE0 = would never doze1 = slight chance of dozing2 = moderate chance of dozing3 = high chance of dozing SITUATION AND CHANCE OF DOZINGSitting and reading - 0Watching television - 3Sitting inactive in a public place (e.g. a theater or meeting) - 3As a passenger in a car for an hour without a break - 2Lying down to rest in the afternoon when circumstances permit - 3Sitting and talking to someone - 0Sitting quietly after lunch without alcohol - 3In a car, while stopped for a few minutes in the traffic - 3TOTAL SCORE 17Subjectively, patient has a high chance of dozing. Kyel Shah MD [address] [place] [address], [phone], [facility] 04/21/2023 17:53:20 07/15/2023 text/html Primary care/Ref erring provider: DG Renner CC: I have seen Dr. Ponce, started on Flonase and is considering Nucala. Patient is here to go over his COPD management. Initial development of shortness of breath: 2019Duration of shortness of breath: 5 yearsCondition of shortness of breath: stableTiming of shortness of breath: afternoonFrequency: up to 1 time a dayLimits activities: yesAggravating factors: walkingAlleviating factors: rest Modified [employer] [place] (mMRC) Dyspnea Scale - Grade 2Grade 0 I only get breathless with strenuous exercise .Grade 1 I get short of breath when hurrying on the level or walking up a slight hill .Grade 2 I walk slower than people of the same age on the level because of breathlessness or have to stop for breath when walking at my own pace on the level .Grade 3 I stop for breath after walking about 100 yards or after a few minutes on the level .Grade 4 I am too breathless to leave the house or I am breathless when dressing . Treatment history: Albuterol HFA as needed since 2018Albuterol nebs as needed since 2021 Flovent HFA 44 mcg 2 puffs BID 2021 onlyTrelegy 100/62.5/25 mcg 1 puff daily 2021-reztri aerosphere 160/9/4.8 mcg 2 puffs BID since 2022 Other symptoms:Drooling: yesDysarthria: noNeck pain: noOdynophagia: noDysphagia: yesWeak mastication: noFacial weakness: noNasal speech: noProtruding tongue: noProductive cough: clearWheezing: noChest tightness: yesOrthopnea: noFrequent throat clearing or swallowing: yesPalpitations: noHeartburn: noEdema: no Environmental exposures:Nicotine smoke: 1 ppd 5700-2243 = 25 years, vaping since 2016Paint: noDye: noDust mites: yesMold: noDamp basement: noWood burning stove: noAnimal dander: catCockroaches: noPollen: yesArsenic: noAsbestos: noBeryllium: noCadmium: noChromium: noCoal smoke: noDiesel fumes: noNickel: noSilica: noSoot: no EPWORTH SLEEPINESS SCALE (ESS) CHANCE OF DOZING SCORE0 = would never doze1 = slight chance of dozing2 = moderate chance of dozing3 = high chance of dozing SITUATION AND CHANCE OF DOZINGSitting and reading - 0Watching television - 3Sitting inactive in a public place (e.g. a theater or meeting) - 3As a passenger in a car for an hour without a break - 3Lying down to rest in the afternoon when circumstances permit - 3Sitting and talking to someone - 0Sitting quietly after lunch without alcohol - 0In a car, while stopped for a few minutes in the traffic - 0TOTAL SCORE 12Subjectively, patient has a moderate chance of dozing. Kyle Shah MD [address] [place], [place] [address]e, [facility] [address], [place], [address], [facility] [employer] 07/15/2023 15:08:24 07/23/2023 text/html Pt is here for med f/u MARLENA Cohen [address] [facility], [facility] [address], [place], [address], [employer] 07/23/2023 14:55:20 10/07/2023 text/html Primary care/Ref erring provider: DG Renner Patient is here to go over his asthma/COPD management. Initial development of shortness of breath: 2019Duration of shortness of breath: 5 yearsCondition of shortness of breath: improvedTiming of shortness of breath: afternoonFrequency: up to 1 time a dayLimits activities: yesAggravating factors: walkingAlleviating factors: rest Modified [employer] [place] (mMRC) Dyspnea Scale - Grade 2Grade 0 I only get breathless with strenuous exercise .Grade 1 I get short of breath when hurrying on the level or walking up a slight hill .Grade 2 I walk slower than people of the same age on the level because of breathlessness or have to stop for breath when walking at my own pace on the level .Grade 3 I stop for breath after walking about 100 yards or after a few minutes on the level .Grade 4 I am too breathless to leave the house or I am breathless when dressing . Treatment history: Albuterol HFA as needed since 2018Albuterol nebs as needed since 2021 Flovent HFA 44 mcg 2 puffs BID 2021 onlyTrelegy 100/62.5/25 mcg 1 puff daily 2021-reztri aerosphere 160/9/4.8 mcg 2 puffs BID since 2022 Other symptoms:Drooling: yesDysarthria: noNeck pain: noOdynophagia: noDysphagia: yesWeak mastication: noFacial weakness: noNasal speech: noProtruding tongue: noProductive cough: clearWheezing: noChest tightness: yesOrthopnea: noFrequent throat clearing or swallowing: yesPalpitations: noHeartburn: noEdema: no Environmental exposures:Nicotine smoke: 1 ppd 3443-9697 = 25 years, vaping since 2017Paint: noDye: noDust mites: yesMold: noDamp basement: noWood burning stove: noAnimal dander: catCockroaches: noPollen: yesArsenic: noAsbestos: noBeryllium: noCadmium: noChromium: noCoal smoke: noDiesel fumes: noNickel: noSilica: noSoot: no EPWORTH SLEEPINESS SCALE (ESS) CHANCE OF DOZING SCORE0 = would never doze1 = slight chance of dozing2 = moderate chance of dozing3 = high chance of dozing SITUATION AND CHANCE OF DOZINGSitting and reading - 0Watching television - 1Sitting inactive in a public place (e.g. a theater or meeting) - 0As a passenger in a car for an hour without a break - 0Lying down to rest in the afternoon when circumstances permit - 2Sitting and talking to someone - 0Sitting quietly after lunch without alcohol - 0In a car, while stopped for a few minutes in the traffic - 0TOTAL SCORE 3Subjectively, patient has a slight chance of dozing. Kyle Shah MD [address] [place] [address], [place] [address], [place], [address], [facility] 10/07/2023 15:11:19
--- OUTSIDE RECORDS SUMMARY | 2024-09-18 17:10 | XMS_ITS ---
Author Organization [facility] Address [address] [place] [address] Care Team Providers Care Detective Homicide Squad Name Role Phone Manohar Porter Unavailable [phone] SOCIAL HISTORY Sex Assigned At : Social History Observation Description Sex Assigned At Male Encounters Encounter Location Date Provider Diagnosis [facility] [address] [place] [address] 02/24/2024 Florina Porter PLAN OF TREATMENT No Information Progress Notes * Jd ENRIQUEZDOB: [birth year] (49 yo M)Acc No.[id number]:02/24/2024 Progress Notes Patient: Jd ENRIQUEZ Provider: MD DYAN, Dianne.Rosa.C.P, F.A.S.N. :1975 Age:49 Y Sex:Male Date:02/24/2024 Address:[address] [place] [address] Subjective: * Chief Complaints: * * Medical History: Objective: Assessment: Plan: * Treatment: * Billing Information: * Visit Code: * Procedure Codes: * Sign off status: Pending * Provider: MD DYAN, Dianne.Rosa.C.P, F.A.S.N. Date: 02/24/2024
--- OUTSIDE RECORDS SUMMARY | 2024-09-18 17:10 | XMS_ITS ---
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 :1975 Age:49 Y Sex:Male Date:03/10/2024 Address:[address] [place] [address] Subjective: * Chief Complaints: Objective: Assessment: Plan: * Billing Information: * Visit Code: * Procedure Codes: * Sign off status: Pending * Provider: MD DYAN, Dianne.Rosa.C.P, F.A.S.N. Date: 03/10/2024
--- OUTSIDE RECORDS SUMMARY | 2024-09-18 17:11 | XMS_ITS ---
Author Organization [facility] Address [address] [place] [address] Care Team Providers Care Biomedical Repair Technician Name Role Phone Ascencion Crandall Primary Care Provider Jagjit Quesada [phone] Allergies Allergen (clinical drug ingredient) Drug/Non Drug [...] Drug Allergy Act patricia REASON FOR VISIT consult was in hospital 2 months Medications Medication SIG (Take, Route, Frequency, Duration) Notes Start Date End Date Status MS Contin 15 MG 1 tablet Orally every 12 hrs for 30 days 07/07/2024 Unknown Lyrica 100 MG 1 capsule Orally three times daily for 30 days Unknown Methocarbamol 500 MG 1 tablet Orally every 8 hrs as needed for 90 days Unknown Gabapentin 300 MG 1 capsule Orally 1 capsule for 3 days at bedtime, then 2 capsules a day at am and pm for 3 days, then 3 capsules a day going forward for 30 day(s) 08/10/2022 Unknown Methocarbamol 750 MG 1 tablet Orally every 8 hrs for 30 days Unknown Butrans 10 MCG/HR 1 patch to skin Transdermal every 7 days for 28 days 03/02/2022 Unknown Vimpat 150 MG 1 tablet Orally Twice a day Unknown Aptiom 200 MG 2 tablets Orally Once a day for 30 day(s) Unknown NexIUM 40 MG 1 capsule Orally Once a day for 30 day(s) Unknown Viibryd 40 MG 1 tablet with food Orally Once a day for 30 day(s) Unknown clonazePAM 1 MG 1 tablet Orally Once a day Unknown Lyrica 150 MG 1 capsule Orally Once a day Unknown Robaxin 1000 MG/10ML 10 mL as needed Injection every 8 hrs for 3 day(s) Unknown Benztropine Mesylate 1 MG/ML as directed Injection Unknown Geodon 80 MG 1 capsule with food Orally Twice a day for 30 day(s) Unknown Ocrevus 300 MG/10ML as directed Intravenous Unknown Albuterol Unknown Magnesium 250 MG 1 tablet with a meal Orally Once a day for 30 day(s) Unknown Zinc 50 MG 1 tablet Orally Once a day for 30 day(s) Unknown Vitamin E 100 UNIT as directed Orally Unknown Eliquis 5 MG as directed Orally Unknown D-3-5 125 MCG (5000 UT) as directed Orally Unknown Lyrica 100 MG 1 capsule Orally three times a day for 30 days [facility] 07-06-23 Dr. Pio Perdue ADRIEN: [id number] Unknown MS Contin 15 MG 1 tablet Orally every 12 hrs for 30 days [facility] 07-06-23 Dr. Pio Perdue ADRIEN: [id number] Unknown Social History Sex Assigned At : Social History Observation Description Sex Assigned At Male Encounters Encounter Location Date Provider Diagnosis -[facility] [address] [place] [address] [address] [place] [address] 09/13/2024 Jagjit Key Plan Of Treatment No Information Progress Notes * Jd ENRIQUEZ JrDOB:[birth year] (49 yo M)Acc No.[id number]:09/13/2024 Progress Note Patient: Jaden BLACKJd PARSON Jr Provider: Adam Key MD :1975 A ge:49 Y S ex:Male Date:09/13/2024 [address] Pcp:Ascencion Crandall Subjective: * Chief Complaints: * 1 . Consult was in hospital 2 months. * ROS: A complete review of 10 [...] Hypertension. * Social History: M arried: no. C hildren: no. S moking: yes T ype: PPD: Years:. A lcohol: no. E xercise: no. R ecreational drug use: no. * Medications: U nknown Eliquis 5 MG Tablet as directed Orally , Unknown MS Contin 15 MG Tablet Extended Release 1 tablet Orally every 12 hrs , Notes to Pharmacist: [facility] 07-06-23 Dr. Pio Perdue ADRIEN: [id number], Unknown Lyrica 100 MG Capsule 1 capsule Orally three times a day , Notes to Pharmacist: [facility] 07-06-23 Dr. Pio Perdue ADRIEN: [id number], Unknown D-3-5 125 MCG (5000 UT) Capsule as directed Orally , Unknown Vitamin E 100 UNIT Capsule as directed Orally , Unknown Zinc 50 MG Tablet 1 tablet Orally Once a day , Unknown Magnesium 250 MG Tablet 1 tablet with a meal Orally Once a day , Unknown Albuterol , Unknown Ocrevus 300 MG/10ML Solution as directed Intravenous , Unknown Robaxin 1000 MG/10ML Solution 10 mL as needed Injection every 8 hrs , Unknown Lyrica 150 MG Capsule 1 capsule Orally Once a day , Unknown clonazePAM 1 MG Tablet 1 tablet Orally Once a day , Unknown Geodon 80 MG Capsule 1 capsule with food Orally Twice a day , Unknown Benztropine Mesylate 1 MG/ML Solution as directed Injection , Unknown Viibryd 40 MG Tablet 1 tablet with food Orally Once a day , Unknown NexIUM 40 MG Capsule Delayed Release 1 capsule Orally Once a day , Unknown Aptiom 200 MG Tablet 2 tablets Orally Once a day , Unknown Vimpat 150 MG Tablet 1 tablet Orally Twice a day , Unknown Butrans 10 MCG/HR Patch Weekly 1 patch to skin Transdermal every 7 days , Unknown Gabapentin 300 MG Capsule 1 capsule Orally 1 capsule for 3 days at bedtime, then 2 capsules a day at am and pm for 3 days, then 3 capsules a day going forward , Unknown Methocarbamol 500 MG Tablet 1 tablet Orally every 8 hrs as needed , Unknown Lyrica 100 MG Capsule 1 capsule Orally three times daily , Unknown MS Contin 15 MG Tablet Extended Release 1 tablet Orally every 12 hrs , Unknown Methocarbamol 750 MG Tablet 1 tablet Orally every 8 hrs , Medication List reviewed and reconciled with the patient * Allergies: N SAIDs, Gabapentin, Soma, Baclofen, BuSpar, Dilantin, LaMICtal, Phenobarbital, Carisoprodol, CeleBREX, Naproxen, Tramadol, Varenicline. Objective: * Vitals: Assessment: Plan: * Treatment: * Images: Billing Information: * Visit Code: * Procedure Codes: * Electronic signature of Kvng Key MD on 09/18/2024 at 05:11 PM CDT Sign off status: Pending * Provider: Adam Key MD Date: 09/13/2024 Generated for Heather moreno/Jackelyn/Madeline on: 09/18/2024 05:11 PM CDT
--- OUTSIDE RECORDS SUMMARY | 2024-09-18 17:11 | XMS_ITS | Clinical Summary ---
Author Organization [facility] Address [address] [address] Care Team Providers Care Histology Specialist Name Role Phone CrandallAscencion [facility] Primary Care Provider [phone] Social History Tobacco Use Types Packs/Day Years Used Date Smoking Tobacco: Never Assessed Sex and Gender Information Value Date Recorded Sex Assigned at Not on file Legal Sex Male 9:22 AM EDT Gender Identity Not on file Sexual Orientation Not on file Plan of Treatment Health Maintenance Due Date Last Done Comments Hepatitis B Vaccine (1 of 3 - 19+ 3-dose series) 02/20/1992 Colorectal Cancer Screening: Annual FOBT 2022 Colorectal Cancer Screening: Colonoscopy 2022 Colorectal Cancer Screening: Sigmoidoscopy 2022 Diabetes: Hemoglobin A1C 03/11/2022 Diabetes: Ophthalmology Exam 03/11/2022 Diabetes: Pedal Pulse Checked 03/11/2022 Diabetes: Sensory Foot Exam 03/11/2022 Diabetes: Visual Foot Exam 03/11/2022 Influenza Vaccine (Season Ended) 2025 02/22/20 21 Pneumococcal Vaccine: 50+ Ye ars (3 of 3 - PCV20 or PCV21) 02/25/2026 02/25/2021, 02/21/2020 Pneumococcal Vaccine: Peds ( 0 to 5 Years) and At-Risk Patients (6 to 49 Years) Discontinued 02/25/2021, 02/21/2020 Insurance [facility] Medicare Medicaid [place] Care Teams Histology Specialist Relationship Specialty Start Date End Date Ascencion Crandall, CLINICAL SYSTEMS ANALYST-BC [address] [place] [address] PCP - General Nurse Practitioner 03/04/22
--- OUTSIDE RECORDS SUMMARY | 2024-09-18 17:11 | XMS_ITS | Patient Health Record ---
Author Organization [facility] [place] Address [address] [place], [place] [address] Care Team Providers Care Non Destructive Testing Supervisor Name Role Phone Steph Iglesias Primary Care Provider Unavailab Nguyễn Cruz Unavailable [phone] ALLERGIES Allergen (clinical drug ingredient) Drug/Non Drug Allergy documented on EMR Reaction Allergy Type Onset Date Status BuSpar Unknown Drug Allergy Active lamotrigine LaMICtal Unknown Drug Allergy Activ e gabapentin Gabapentin Unknown Drug Allergy Activ e Non-steroidal anti-inflammatory agent (FN) NSAIDs Unknown Drug Allergy Active REASON FOR REFERRAL No Information MEDICATIONS Medication SIG (Take, Route, Frequency, Duration) Notes Start Date End Date Status Pregabalin 150 MG TAKE 1 CAPSULE BY [facility] FOUR TIMES DAILY Diagnosis Unavailable Oral for 30 Active Aptiom 200 MG Oral for 30 Acti ve Vimpat 150 MG Oral for 30 Acti ve Methocarbamol 500 MG 1 tablet Orally TID 2 Active Geodon 80 MG 1 capsule with food Orally Twice a day for 30 day(s) Active Morphine Sulfate ER 15 MG TAKE 1 TABLET BY MOUTH EVERY 8 HOURS NEEDED FOR PAIN Oral for 23 Active Viibryd 40 MG 1 tablet with food O rally Once a day for 30 day(s) Active cloNIDine HCl 0.1 MG 1 tablet Orally Onc e a day for 30 day(s) Active SOCIAL HISTORY Tobacco Use: Social History Observation Description Date Details (start date - stop date) Never Smoker NA - NA Sex Assigned At : Social History Observation Description Sex Assigned At Unknown Tobacco Use/Smoking Question Answer Notes Are you a nonsmoker Alcohol Screen Question Answer Notes Did you have a drink containing alcohol in the p ast year? No Points 0 Interpretation Negative PROBLEMS Problem Type ICD Code Onset Dates Problem Status W/U Status Risk SNOMED Code Notes Problem Multiple sclerosis (G35) Active confirmed Multiple sclerosis (43366500) Problem Spondylosis without myelopathy or radiculopathy, lumbar region (M47.816) Active confirmed Lumbosacral spondylosis without myelopathy (15092612) Problem Spondylosis without myelopathy or radiculopathy, lumbosacral region (M47.817) Active confirmed Lumbosacral spondylosis without myelopathy (disorder) (64394682) PLAN OF TREATMENT Pending Test Test Name Order Date CBC With Differential/Platelet 2 C-Reactive Protein, Quant 09/03/2021 ESR 09/03/2021 Insurance Providers Payer Name Payer Address Payer Phone Subscriber Number Group Number Insured Name Patient Relationship to Insured Coverage Start Date Coverage End Date [facility] MEDICARE ADVANTAGE [address] [address] [place] [address] [phone] [id number] Jd Enriquez Self - patient is the insured MEDICAL (GENERAL) HISTORY Medical History History ICD Code bipolar diabetes anxiety Multiple Scleroris Seizure Surgical History Surgery Date(Month/Year)
--- OUTSIDE RECORDS SUMMARY | 2024-09-18 17:11 | XMS_ITS | Clinical Summary ---
Author Organization [facility] [employer] Address [address] [place] [address] Care Team Providers Care Security Field Supervisor Name Role Phone CrandallAscencion APRN-CASKET ASSEMBLER METAL Primary Care Provider Source Comments [facility] [employer],non-owned Affiliates and Associated Physician Practices is amultiple site organization consisting of ambulatory clinics and hospital sitesin [place], [place], [place] and [place]. This disclosure is being madepursuant to the Care Everywhere program and may not contain all information available regarding this patient. Last updated 18.[facility] [employer] Allergies Active Allergy Reactions Criticality Noted Date Comments Baclofen Myalgias,Unknown Medium 04/30/2022 Buspirone Hcl Rash Medium 09/02/2020 Celecoxib Nausea and/or Vomiting 11/13/2010 Varenicline Psychiatric 11/13/2010 suicidal Lamotrigine Urticaria 11/13/2010 Naproxen Nausea and/or Vomiting 11/13/2010 Gabapentin Psychiatric 11/13/2010 sedated Nsaids Nausea and/or Vomiting 11/13/2010 Phenobarbital Other Low 06/18/2022 Phenytoin Rash Medium 05/12/2021 Carisoprodol Psychiatric 11/13/2010 sedated Tramadol Seizures 11/13/2010 Bupropion Seizures 11/13/2010 Medications * Be aware that medications may not be up to date on this document. Alwaysverify current medications with the patient. DULoxetine (CYMBALTA) 60 MG capsule Take 60 mg by mouth once daily. Active phenytoin ER (DILANTIN) 100 MG capsule Take by mouth 2 times daily. Active esomeprazole (NEXIUM) 40 MG capsule Take 40 mg by mouth daily before breakfast. Active ziprasidone (GEODON) 80 MG capsule Take 80 mg by mouth 3 times daily. Active diazepam (VALIUM) 10 MG tablet Take 10 mg by mouth 3 times daily as needed. Active armodafinil (NUVIGIL) 250 MG tablet Take 250 mg by mouth once daily. Active eslicarbazepine (APTIOM) 200 MG tablet Take 200 mg by mouth 2 times daily Activ e vilazodone (VIIBRYD) 40 MG tablet Take 40 mg by mouth daily with breakfast Active benztropine (COGENTIN) 1 MG tablet 1 mg 2 times daily 2 12/18/19 18 Active clonazePAM (KLONOPIN) 1 MG tablet TAKE ONE- HALF TABLET TWICE A DAY AND 1 TABLET AT BEDTIME 2 09/01/19 19 Active VIMPAT 100 MG tablet 09/08/19 19 Active morphine CR 12hr (MS CONTIN) 15 MG tabletIndication s:Multiple sclerosis (HCC),Chronic pain syndrome Take 1 (one) tablet by mouth every 8 hours as needed 90 tablet 07/30/19 21 Active methocarbamol (ROBAXIN) 500 MG tablet TAKE ONE TABLET BY MOUTH EVERY 8 HOURS NEEDED 90 tablet 08/24/19 21 Active pregabalin (LYRICA) 150 MG capsule TAKE 1 CAPSULE BY MOUTH UP TO 4 TIMES A DAY NEEDED 120 capsule 2 08/28/19 21 Active apixaban (Eliquis) 5 MG tabletIndication s:Cerebrovascula r accident secondary to Atrial Fibrillation,Pul monary Embolism,Thrombo embolism secondary to Atrial Fibrillation Take 5 mg by mouth 2 times daily. Indications: Blockage of Blood Vessel to Lung by a Particle, Cerebrovascular accident secondary to Atrial Fibrillation, Thromboembolism secondary to Atrial Fibrillation Active albuterol (Proventil;Venkatesh derrick) (2.5 MG/3ML) 0.083% nebulizer solutionIndicati ons:Bronchospasm Inhale 5 mg by mouth 3 times daily. Indications: Spasm of Lung Air Passages Active Fluticasone-Umec lidin-Vilant (Trelegy Ellipta) 100-62.5-25 MCG/ACTIndicatio ns:Chronic Obstructive Pulmonary Disease Inhale 1 puff by mouth 1 Before Breakfast, 2 Before Dinner. Indications: Chronic Obstructive Lung Disease Active Zinc 50 MG tablet Take 1 (one) tablet by mouth once daily Activ e vitamin E (Tocopheryl) 100 UNIT capsule Take 1 (one) capsule by mouth once daily Active triamcinolone acetonide (Kenalog) 0.1 % cream Apply to affected area 2 times daily Active Belsomra 20 MG tablet Take 1 (one) tablet by mouth at bedtime Activ e sodium chloride 1 GM tablet Take 1 (one) tablet by mouth 3 times daily with meals Active oxyCODONE CR 12hr (OxyCONTIN) 10 MG tablet Take 1 (one) tablet by mouth 2 times daily Active oxyCODONE, immediate release, (Roxicodone) 5 MG tablet Take 1 (one) tablet by mouth every 4 hours as needed for Pain 06/25/19 23 Active OLANZapine (ZyPREXA) 2.5 MG tablet Take 1 (one) tablet by mouth at bedtime 10/13/19 24 Active ocrelizumab (Ocrevus) 300 MG/10ML injection 300 (three hundred) mg by Intravenous route as directed Active nicotine polacrilex (Commit) 2 MG Take by mouth every 2 hours Active metoprolol tartrate IR (Lopressor) 25 MG tablet Take 0.5 (one-half) tablet by mouth 2 times daily Active levothyroxine (Synthroid) 100 MCG tablet Take 1 (one) tablet by mouth daily before breakfast 09/13/19 24 Active levETIRAcetam (Keppra) 500 MG tablet Take 1 (one) tablet by mouth once daily 04/28/20 22 Active Lancets (ONETOUCH DELICA PLUS 33G EXTRA FINE LANCET) 05/29/19 23 Active albuterol-ipratr opium (Duo-Neb) 0.5-2.5 (3) MG/3ML nebulizer solution Inhale 3 mL by mouth every 6 hours 03/14/20 24 Active OneTouch Verio test strip Use 1 (one) strip as directed 05/29/19 23 Active gabapentin (Neurontin) 300 MG capsule Take 1 (one) capsule by mouth 3 times daily 08/11/19 23 Active furosemide (Lasix) 20 MG tablet Take 1 (one) tablet by mouth once daily 10/15/19 24 Active fluticasone hfa 44 (Flovent HFA) 44 MCG/ACT inhaler Inhale 1 (one) puff by mouth 2 times daily Active EPINEPHrine (Epipen) 0.3 MG/0.3ML auto-injector pen Inject 0.3 mL into muscle once as needed for Anaphylaxis 05/06/20 23 Active doxycycline hyclate (Vibramycin) 100 MG capsule Take 1 (one) capsule by mouth 2 times daily 04/28/20 22 Active docusate sodium (Colace) 100 MG capsule Take 1 (one) capsule by mouth 3 times daily Active dexAMETHasone (Decadron) 4 MG tablet Take 1 (one) tablet by mouth every 12 hours 03/03/20 24 Active vitamin D3 (D-3-5) 125 MCG (5000 UT) capsule Take 1 (one) capsule by mouth once daily Active Calcium Carbonate-Vitami n D (Oyster Shell Calcium/D) 500-5 MG-MCG Take by mouth every 24 hours Active calcium carbonate (Calci-Chew) 1250 (500 Ca) MG chew tablet Take 2 (two) tablets by mouth every 4 hours as needed Active buprenorphine (Butrans) 10 MCG/HR patch Apply 1 (one) patch to skin every 7 days 03/02/20 22 Active Breztri Aerosphere 160-9-4.8 MCG/ACT inhaler Inhale 2 (two) puffs by mouth 2 times daily 01/04/20 24 Active Blood Glucose Monitoring Suppl (Hypejar Verio Flex System) w/Device KIT 1 kit 05/29/19 23 Active B Complex Vitamins CAPS Take 1 capsule by mouth once daily 11/27/19 22 Active atorvastatin (Lipitor) 10 MG tablet Take 1 (one) tablet by mouth once daily Activ e amiodarone (Cordarone) 200 MG tablet Take 1 (one) tablet by mouth once daily Activ e acetaminophen (Tylenol) 325 MG tablet every 6 hours Active Active Problems Problem Noted Date Diagnosed Date alf (current) use of opiate analgesic 03/24 Muscle pain 04/10/2024 Cardiac pacemaker in situ 09/18/2022 History of aortic valve replacement 09/18/2022 Muscle weakness 08/04/2022 AV block, complete 07/21/2022 Hyperlipidemia 07/21/2022 Hypertension 07/21/2022 Presence of cardiac pacemaker 07/21/2022 Overview (04/10/2024): (Status post) Type 2 diabetes mellitus without complications 0 07/21/2022 Overview (08/23/2024): IMO 08/23/2024 Aftercare following surgery of the circulatory s ystem 07/08/2022 Status post aortic valve replacement 07/08/2022 Status post mitral valve repair 07/08/2022 Presence of cardiac pacemaker 06/15/2022 Mild protein-calorie malnutrition 06/08/2022 Endocarditis 06/05/2022 Anemia 05/12/2022 Pulmonary emphysema 01/09/2022 Lung nodule 01/09/2022 Asthma-chronic obstructive p ulmonary disease overlap syndrome 01/08/2022 Solitary pulmonary nodule 01/06/2022 Dyspnea on exertion 12/29/2021 Complex partial seizures jasson 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-clonic seizures 11/28/2021 Chronic hyponatremia 09/18/2021 Chronic obstructive lung disease 09/18/2021 Neurogenic bladder 06/17/2021 Urinary incontinence 06/17/2021 Long-term current use of opiate analgesic 2020 Spasticity 08/07/2020 Spinal stenosis of lumbar re gion without neurogenic claudication 08/07/2020 Diabetes mellitus 06/12/2020 Anxiety 09/19/2019 Neuropathy 09/19/2019 Sacroiliitis 03/02/2018 Chronic pain syndrome 12/29/2017 Lumbosacral spondylosis with radiculopathy 12/29 Fibromyalgia 11/13/2010 Overview (11/13/2010): bella didn't work Bipolar affective disorder 11/13/2010 Overview (11/13/2010): Dr. JIM Stephenson GERD (gastroesophageal reflux disease) 1 Annular tear of disc 11/13/2010 Overview (11/13/2010): L4-5 and L5S1 DNR (do not resuscitate) 11/13/2010 Atopic eczema 11/13/2010 Seasonal rhinitis 11/13/2010 Overview (11/13/2010): On no meds Impotence 11/13/2010 Epilepsy 05/24/2004 Overview (11/13/2010): Due to MS Multiple sclerosis 05/24/2002 Overview (11/13/2010): Transitioning from copaxone to something else Dr. Kimmie May Doesn't drive. Lumbar radiculopathy Immunizations Immunization Administration Dates Next Due HEP A VACCINE, ADULT 11/21/1989,05/24/1989 HEP B VACCINE ADOL/ADULT 2 DOSE 11/21/1992,06/24,05/24/1992 HEP B VACCINE, PED/ADOL 11/21/1992,06/24/1992, INFLUENZA VACCINE, CELL CULT URE, QUADR. (FLUCELVAX QUADRIVALENT; 6MO+) (CCIIV4) 03/17/2023 INFLUENZA VACCINE, QUADR. (A FLURIA, FLUZONE QUADRIVALENT; 6MO+) (IIV4) 02/21/2021,03/06/2018 INFLUENZA VACCINE, QUADR. (F LUZONE; FLULAVAL; FLUARIX; AFLURIA QUADRIVALENT; 6MO+), 0.5 ML (IIV4) 02/08/2020 PNEUMOCOCCAL PPSV23 02/25/2021 PNEUMOCOCCAL PPV VACCINE 03/22/2018 Pneumococcal Pcv13 Conj 02/21/2020 TD VACCINE 10/22/2004 Zoster Hzv Vacc Recombinant Inj Im 07/25/2023, Family History Medical History Relation Name Comments Rheumatological Disease Brother RA Cancer - Breast Mother Thyroid Disease Sister 1 Autoimmune Disease Sister 2 Multiple sclerosis Relation Name Status Comments Brother Mother Sister 1 Sister 2 Social History Tobacco Use Types Packs/Day Years Used Date Smoking Tobacco: Former Cigarettes 0.5 20 Smokeless Tobacco: Never Tobacco Cessation:Counseling Given: Not Answered Alcohol Use Standard Drinks/Week Comments No 0 [...] on file Legal Sex Male 9:21 AM PUBLIC ACCOUNTANT Gender Identity Not on file Sexual Orientation Not on file 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 Not on file Not on file Last Filed Vital Signs Vital Sign Reading Time Taken Comments Blood Pressure 128/76 09/24/2022 6:05 PM CDT Pulse 66 09/24/2022 6:05 PM CDT Temperature 36.6 C (97.8 F) 09/24/2022 6:05 PM CDT Respiratory Rate 17 09/24/2022 6:05 PM CDT Oxygen Saturation 99% 09/24/2022 6:05 PM CDT Inhaled Oxygen Concentration 98% 05/31/2018 5 :02 PM PUBLIC ACCOUNTANT Weight 84.8 kg (187 lb) 08/27/2020 11:21 AM CDT Height 175.3 cm (5' 9 ) 04/02/2020 10:48 AM PUBLIC ACCOUNTANT Body Mass Index 27.62 04/02/2020 10:48 AM PUBLIC ACCOUNTANT Plan of Treatment Health Maintenance Due Date Last Done Comments COLOGUARD (AGES 45-75) - COLON CA SCREENING 1975 COLON MONITORING 1973 COLONOSCOPY - COLON CA SCREENING 1973 CT COLONOGRAPHY - COLON CA SCREENING 1973 Colorectal Cancer Screening 1973 FIT - COLON CA SCREENING 1973 FLEX SIG - COLON CA SCREENING 1973 HIV SCREENING 02/20/1988 HEPATITIS C SCREENING 02/15/1991 DIABETES-SERUM CREATININE 06/25/20232022, 06/24/2022, 06/24/2022, Additional history exists DIABETES RETINOPATHY SCREENING 04/10/2024 DIABETES-FOOT EXAM WITH MONOFILAMENT 04/10/2024 DIABETES-HGB A1C 04/10/2024 06/06/2022 DIABETES - URINE PROTEIN SCREENING 05/24/2024 MEDICARE AWV CALENDAR YEAR 2024 INFLUENZA VACCINE (Season Ended) 2025 03/17/2023, 02/21/2021, 02/08/2020, Additional history exists DTAP/TDAP/TD VACCINES (2 - Td or Tdap) 04/12/2025 10/22/2004 Postponed from 10/22/2014 (Insurance Coverage) PNEUMOCOCCAL VACCINE 50+ (3 of 3 - PCV20 or PCV21) 02/25/2026 02/25/2021, 02/21/2020, 03/22/2018 HEPATITIS B VACCINE Completed 11/21/1992, 11/21/1992, 06/24/1992, Additional history exists ZOSTER VACCINE Completed 07/25/2023, 05/11/2023 COVID-19 VACCINE Completed 01/28/2024, , 02/10/2022, Additional history exists HIB VACCINE Aged Out No longer eligi ble based on patient's age to complete this topic HPV VACCINE Aged Out No longer eligi ble based on patient's age to complete this topic MENINGOCOCCAL (Group B) VACCINE SHARED DECISION-MAKING Aged Out No longer eligible based on patient's age to complete this topic MENINGOCOCCAL GROUPS A/C/Y/W VACCINE Aged Out No longer eligible based on patient's age to complete this topic Insurance MEDICAID - [place] [employer] MANAGED MEDICARE ADV Advance Directives * DNR (Latest Code Status on File) Date Activated Date Inactivated Comments 11/13/2010 11:51 AM Care Teams Security Field Supervisor Relationship Specialty Start Date End Date Ascencion Crandall, BATTERY CHARGER TESTER-CASKET ASSEMBLER METAL [address] [place] [address] PCP - General Nurse Practitioner Family 04/06/24
--- OUTSIDE RECORDS SUMMARY | 2024-09-18 17:11 | XMS_ITS ---
Author Organization [facility] Address 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 Name Role Phone Crandall, Mateoabraham Primary Care Provider UnavailJagjit Bland Unavailable [phone] Pio Perdue Unavailable [phone] Allergies Allergen (clinical drug ingredient) Drug/Non Drug [...] Duration) Notes Start Date End Date Status Lyrica 100 MG 1 capsule Orally three times daily for 30 days Active Methocarbamol 500 MG 1 tablet Orally every 8 hrs as needed for 90 days Active Gabapentin 300 MG 1 capsule Orally 1 capsule for 3 days at bedtime, then 2 capsules a day at am and pm for 3 days, then 3 capsules a day going forward for 30 day(s) 08/10/2022 Active Methocarbamol 750 MG 1 tablet Orally every 8 hrs for 30 days Active MS Contin 15 MG 1 tablet Orally every 12 hrs for 30 days 07/07/2024 Active Vimpat 150 MG 1 tablet Orally Twice a day Active Aptiom 200 MG 2 tablets Orally Once a day for 30 day(s) Active NexIUM 40 MG 1 capsule Orally Once a day for 30 day(s) Active Viibryd 40 MG 1 tablet with food Orally Once a day for 30 day(s) Active Butrans 10 MCG/HR 1 patch to skin Transdermal every 7 days for 28 days 03/02/2022 Active Lyrica 150 MG 1 capsule Orally Once a day Active Robaxin 1000 MG/10ML 10 mL as needed Injection every 8 hrs for 3 day(s) Active Benztropine Mesylate 1 MG/ML as directed Injection Active Geodon 80 MG 1 capsule with food Orally Twice a day for 30 day(s) Active clonazePAM 1 MG 1 tablet Orally Once a day Active Magnesium 250 MG 1 tablet with a meal Orally Once a day for 30 day(s) Active Zinc 50 MG 1 tablet Orally Once a day for 30 day(s) Active Vitamin E 100 UNIT as directed Orally Active Ocrevus 300 MG/10ML as directed Intravenous Active Albuterol Active D-3-5 125 MCG (5000 UT) as directed Orally Active Lyrica 100 MG 1 capsule Orally three times a day for 30 days [facility] 07-06-23 Dr. Pio Perdue ADRIEN: [id number] Active MS Contin 15 MG 1 tablet Orally every 12 hrs for 30 days [facility] 07-06-23 Dr. Pio Perdue ADRIEN: [id number] Active Eliquis 5 MG as directed Orally Active Social History Sex Assigned At : Social History Observation Description Sex Assigned At Male Encounters Encounter Location Date Provider Diagnosis -[facility] [address] [place] [address] 08/04/2024 Pio Perdue Plan Of Treatment No Information Progress Notes * Jd ENRIQUEZ JrDOB:[birth year] (49 yo M)Acc No.[id number]:08/04/2024 Progress Notes Patient: Jaden DUONGJd Jr Provider: Ramila Perdue MD :1975 A ge:49 Y S ex:Male Date:08/04/2024 [facility] Pcp:Ascencion Crandall Subjective: * Chief Complaints: [...] Diabetes, Hypertension. M other: unknown, diagnosed with Hypertension, Cancer. * Social History: M arried: no. Children: no. Smoking: yes T ype: PPD: Years:. A lcohol: no. Exercise: no. Recreational drug use: no. * Medications: T aking Eliquis 5 MG Tablet as directed Orally , Taking MS Contin 15 MG Tablet Extended Release 1 tablet Orally every 12 hrs , Notes to Pharmacist: LEANN 07-06-23 Dr. Pio Perdue ADRIEN: [id number], Taking Lyrica 100 MG Capsule 1 capsule Orally three times a day , Notes to Pharmacist: [facility] 07-06-23 Dr. Pio Perdue ADRIEN: [id number], Taking D-3-5 125 MCG (5000 UT) Capsule [...] * Procedure Codes: * Electronic signature of Pio Perdue MD on 09/18/2024 at 05:11 PM CDT Sign off status: Pending * Provider: Ramila Perdue MD Date: 0 08/04/2024 Generated for Heather moreno/Jackelyn/Varshaitting on: 0 09/18/2024 05:11 PM CDT
--- OUTSIDE RECORDS SUMMARY | 2024-09-18 17:11 | XMS_ITS | Patient Health Record ---
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 monitor disease progression - Follow up with neurologist as scheduled for ongoing MS management Psychiatric Management Assessment: Patient reports overall stable mood with no significant depressive symptoms or viri. Sleep is reported as pretty good with 9 hours of sleep the previous night, though the patient typically gets 6 hours of sleep. Current psychiatric medication regimen appears to be effective in maintaining stability. Plan: - Continue clonazepam 1 mg PO TID - Continue ziprasidone (Geodon) 80 mg PO BID with food - Continue benztropine as prescribed (dose not specified) - Maintain current medication regimen as patient reports doing well - Follow up as scheduled for ongoing psychiatric management Fatigue Assessment: Patient reports significant fatigue, which is consistent with their MS diagnosis. Despite sleeping for 9 hours, the patient still feels tired. This fatigue is likely multifactorial, stemming from MS, psychiatric medications, and possibly pain. Plan: - Continue to monitor fatigue levels - Educate patient on fatigue being a common symptom of MS - Encourage pacing of activities and energy conservation techniques Pain Management Assessment: Patient reports waking up with pain. They have been prescribed methocarbamol, a muscle relaxant, which has recently been increased in dosage. Plan: - Continue methocarbamol as prescribed (dose not specified) - Monitor effectiveness of increased dosage for pain management - Follow up with prescribing physician regarding pain control the note is transcribed using speech recognition software. It is a reflection of a visit with the patient. It might have some inaccuracy, including medication names and transcribing errors, though efforts have been made to correct them. 08/15/2024 Other Electronic Prior Authorization was requested for clonazePAM 1 MG Tablet. Provider can order medication once approval received. Plan Of Treatment Next Appt Details Provider Name:Dov whitehead, 11/10/2024 01:00:00 PM, [address], [facility] [address], [place], [address], Insurance Providers Payer Name Payer Address Payer Phone Subscriber Number Group Number Insured Name Patient Relationship to Insured Coverage Start Date Coverage End Date [facility] Medicare Replacement/ Advantage - Ppo [address] [address] [place] [address] [id number] MANIJNDER SHY Self - patient is the insured [place] [address] [address] [place] [address] [id number] MANJINDERSHY PARSON Self - patient is the insured Medical (General) History Medical History History ICD Code Problems: Bipolar disorder Chronic post-traumatic stress disorder Extrapyramidal movements Generalized anxiety disorder Nicotine dependence Primary insomnia Tardive dyskinesia , Surgical History Surgery Date(Month/Year) Other 06/09/2022
--- OUTSIDE RECORDS SUMMARY | 2024-09-18 17:53 | XMS_ITS | Encounter Summary ---
Author Organization [facility] Healthcare Address [address] [place] [address] Care Team Providers Care Food Safety Auditor Name Role Phone Ascencion Crandall NP Primary Care Provider [phone] Mable Castaneda MD Unavailable [phone] Haim Clement MD Unavailable [phone] Miguel Jara MD, Sunil Ledesma Unavailable [phone] Rui Brizuela MD Unavailable [phone] Eddi Jiménez NP Unavailable [phone] Encounter Details Date Type Department Care Team (Late st Contact Info) Description 05/27/2023 Telephone [facility] [address] [place] [id number] Marilee Bryson, ZAY Social History Tobacco Use [...] often do you attend chur ch or advent services? 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 Gender Identity Not on file Sexual Orientation Not on file documented as of this encounter Plan of Treatment Not on file documented as of this encounter Visit Diagnoses Not on filedocumented in this encounter Care Teams Food Safety Auditor Relationship Specialty Start Date End Date Ascencion Crandall NP PCP - General Internal Medicine 09/19/21 Mable Castaneda MD [address] [place] [address] Consulting Physician Cardiovascular Disease 06/12/22 Haim Clement MD [address] [facility] [[email or web address] [address] [place] [address] Consulting Physician Infectious Diseases 06/25/22 Sunil Rivera Jr., MD [address] [place] [address] Consulting Physician Cardiovascular Disease 06/25/22 Rui Brizuela MD [address] [place] [address] Consulting Physician Cardiothoracic Surgery 06/25/22 Eddi Jimé[place] [address] [facility] [[email or web address]] [address] [place] [address] Nurse Practitioner Pain Management 03/22/24 documented as of this encounter
--- OUTSIDE RECORDS SUMMARY | 2024-09-18 17:53 | XMS_ITS | Referral Summary ---
Author Organization [facility] Address [address] [place] [address] Care Team Providers Care Studio Grip Name Role Phone Ascencion Crandall NP Primary Care Provider [phone] Mable Castaneda MD Unavailable [phone] Haim Clement MD Unavailable Miguel Jara MD, Sunil Ledesma Unavailable Rui Brizuela MD Unavailable Eddi Jiménez NP Unavailable Encounters Date Type Department Care Team Description 09/04/[address] [facility] [address] [place] [phone] Michaela Lynch RN 08/16/2024 Telephone [facility] [address] [place] [phone] Jerri Segura LPN 08/16/2024 Telephone [facility] [address] [place] [phone] Cresencio Shrestha MD Med Management (Modafinil 100mg) 08/15/[address] [facility] [address] [place] [phone] Jerri Segura LPN 08/02/2024 12:00 PM CDT Home Care Visit [address] [place] [address] Marie Pleitez, PT PT OASIS DISCHARGE 08/01/2024 Orders Only [facility] ADMIT [address] [place] [address] Samina Ruby MD 08/01/[address] [place] [address] Radha Severino, ZAY 07/27/2024 Home Care Visit [address] [place] [address] Harvinder Neil [facility] CASE COMMUNICATION 07/27/2024 1:30 PM AFFIRMATIVE ACTION SPECIALIST Home Care Visit [address] [place] [address] Jennifer Brewer, OT OT REASSESSMENT 07/26/2024 Orders Only [facility] [address] [facility] [address] [place] [address] Cresencio Shrestha MD 07/24/2024 12:30 PM AFFIRMATIVE ACTION SPECIALIST Home Care Visit [address] [place] [address] Marie Pletiez, PT PT HOME VISIT 07/21/2024 Home Care Visit [address] [place] [address] Rosina Latham, OT CASE COMMUNICATION 07/18/2024 Home Care Visit [address] [place] [address] Rosina Latham, OT CASE COMMUNICATION 07/17/2024 1:15 PM AFFIRMATIVE ACTION SPECIALIST Home Care Visit [address] [place] [address] Marie Pleitez, PT PT REASSESSMENT 07/13/2024 Home Care Visit [address] [place] [address] Rosina Latham, OT CASE COMMUNICATION 07/12/2024 Home Care Visit [address] [place] [address] Marie Pleitez, PT TELEPHONE ENCOUNTER 07/07/2024 10:45 AM AFFIRMATIVE ACTION SPECIALIST Home Care Visit [address] [place] [address] Marie Pleitez, PT PT HOME VISIT 07/06/2024 1:15 PM AFFIRMATIVE ACTION SPECIALIST Home Care Visit [address] [place] [address] Annel Colindres COTA OT HOME VISIT 07/03/2024 1:00 PM AFFIRMATIVE ACTION SPECIALIST Home Care Visit [address] [place] [address] Marie Pleitez, PT PT HOME VISIT 06/30/2024 3:00 PM AFFIRMATIVE ACTION SPECIALIST Home Care Visit [address] [place] [address] Rosina Latham, OT OT HOME VISIT 06/30/2024 1:15 PM AFFIRMATIVE ACTION SPECIALIST Home Care Visit [address] [place] [address] Marie Pleitez, PT PT HOME VISIT 06/28/2024 12:30 PM AFFIRMATIVE ACTION SPECIALIST Home Care Visit [address] [place] [address] Marie Pleitez, PT PT HOME VISIT 06/27/2024 Home Care Visit [address] [place] [address] DaneHarvinder LCSW BOILER TESTER DISCIPLINE DISCHARGE 06/27/2024 2:30 PM AFFIRMATIVE ACTION SPECIALIST Home Care Visit [address] [place] [address] Harvinder Neil LCSW BOILER TESTER INITIAL EVAL 06/26/2024 Home Care Visit [address] [place] [address] Mary Yu, ZYA NURSE MED RECON FOR THERAPY 06/24/2024 Home Care Visit [address] [place] [address] Harvinder Neil LCSW CASE COMMUNICATION 06/23/2024 Home Care Visit [address] [place] [address] Rosina Latham, OT CASE COMMUNICATION 06/23/2024 2:00 PM AFFIRMATIVE ACTION SPECIALIST Home Care Visit [address] [place] [address] Rosina Latham, OT OT INITIAL EVALUATION 06/22/2024 Home Care Visit [address] [place] [address] Marie Pleitez, PT TELEPHONE ENCOUNTER 06/22/2024 Plan of Care Documentation [address] [place] [address] 06/22/2024 1:00 PM AFFIRMATIVE ACTION SPECIALIST Home Care Visit [address] [place] [address] Marie Pleitez, PT PT OASIS START OF CARE 06/21/2024 Telephone [facility] [address] [facility] [address] [place] [address] Jolene Ford RP 06/20/2024 Home Care Visit [address] [place] [address] Marie Pleitez, PT TELEPHONE ENCOUNTER from Last [...] topically daily Active OneTouch Verio Flex meter [facility] 05/29/19 23 Active cholecalciferol (VITAMIN D-3) 5,000 unit capsuleIndicati ons:Vitamin D Deficiency Take 5,000 Units by mouth daily Active OneTouch Delica Plus Lancet 33 gauge [facility] 05/29/19 23 Active triamcinolone (KENALOG) 0.1 % [...] ns:hypothyroidi sm Take 100 mcg by mouth adoption specialist before breakfast 06/18/19 24 Active mepolizumab (Nucala) [...] 08/07/2020 Assessment & Plan (05/09/2024 4:57 PM AFFIRMATIVE ACTION SPECIALIST): The patient is presenting for follow up [...] been having difficulties obtaining a ride to [facility]. We will reach out to our home [...] 09/19/2019 Assessment & Plan (05/09/2024 4:57 PM AFFIRMATIVE ACTION SPECIALIST): The patient has chronic pain in his [...] 11/21/1992,1992,05/24/1992 Influenza, Quadrivalent, Spl it, Intramuscular 02/21/2021,03/06/2018 [employer] ([employer]) SARS-CoV-2 Vaccination 07/30/2020 Pneumococcal Conjugate PCV [...] often do you attend chur ch or orthodoxy services? 1 to 4 times per year 06/08/2022 Do you belong to any clubs o r organizations such as latter-day groups, unions, fraternal or athletic groups, or [...] on file Legal Sex Male 7:00 AM AFFIRMATIVE ACTION SPECIALIST Gender Identity Not on file Sexual Orientation Not on file Last Filed Vital Signs Vital Sign Reading Time Taken Comments Blood Pressure 124/78 07/27/2024 1:47 PM AFFIRMATIVE ACTION SPECIALIST Pulse 78 07/27/2024 1:47 PM AFFIRMATIVE ACTION SPECIALIST Temperature 37.4 C (99.3 F) 07/27/2024 1:47 PM AFFIRMATIVE ACTION SPECIALIST Respiratory Rate 18 07/27/2024 1:47 PM AFFIRMATIVE ACTION SPECIALIST Oxygen Saturation 97% 07/27/2024 1:47 PM AFFIRMATIVE ACTION SPECIALIST Inhaled Oxygen Concentration - - Weight 71.2 kg (157 lb) 05/09/2024 3:24 PM AFFIRMATIVE ACTION SPECIALIST Height 175.3 cm (5' 9.02 ) 05/22/2024 10:[address] Body Mass Index 23.18 05/09/2024 3:24 PM AFFIRMATIVE ACTION SPECIALIST Plan of Treatment Not on file Medical Devices Implanted Type Area Management Sme Device Identifier Shelf Expiration Date Model / Serial / Lot [employer] Solia S 53cm Steroid Elute Bipolar Active Fixation Endocardial [id number] - [id number] - [id number] Implanted:Qty: 1 on 06/15/2022 by Sunil Rivera Jr., MD at [facility] Lead Right: Ventricle [employer] [id number] 05/23/2024 [id number] / [id number] / [employer] Solia S 45cm Bipolar Active Fixation Lead Pacing Steroid Eluting [id number] - [id number] - [id number] Implanted:Qty: 1 on 06/15/2022 by Sunil Rivera Jr., MD at [facility] Lead Right: Atria [employer] [id number] 03/23/2024 [id number] / [id number] / [employer] Edora Promri 96r13f5.5mm Dual Chamber Rate Adaptive Unipolar Bipolar 539262 - [id number] - [id number] Implanted:Qty: 1 on 06/15/2022 by Sunil Rivera Jr., MD at [facility] Pacemaker Left: Chest Wall [employer] [id number] 10/22/2023 [id number] / [id number] / [employer] Inspiris Resilia Leaflet Aortic Valve 25mm [id number] - [id number] - [id number] Implanted:Qty: 1 on 06/09/2022 by Rui Brizuela MD at [facility] N/A: Heart [employer] 06/11/2025 [id number] / [id number] / Explanted Type Area Management Sme Device Identifier Shelf Expiration Date Model / Serial / Lot [employer] Weck Horizon 6 Cartridge Ligate Triangulate Cross Section Heart [id number] - [id number] Explanted:Qty: 1 on 06/09/2022 at [facility] N/A: Chest [employer] [id number] / / Procedures Procedure Name Priority Date/Time Associated Diagnosis Comments HEPATITIS PANEL, ACUTE Routine 05/10/2024 12:31 PM AFFIRMATIVE ACTION SPECIALIST Multiple sclerosis (HCC) COMPREHENSIVE METABOLIC PANEL Routine 05/10/2024 12:31 PM AFFIRMATIVE ACTION SPECIALIST Multiple sclerosis (HCC) CT LUNG CANCER SCREENING Schedule Routine, Read Routine (OP Routine) 01/20/2024 8:36 AM CDT Personal history of nicotine dependence LIPID PANEL Timed 06/07/2022 3:54 AM AFFIRMATIVE ACTION SPECIALIST HEMOGLOBIN A1C Routine 06/06/2022 12:38 AM AFFIRMATIVE ACTION SPECIALIST from Last 3 Months or Most Recently Relevant to Health Maintenance Results * Hepatitis panel, acute Blood (05/10/2024 12:31 PM AFFIRMATIVE ACTION SPECIALIST) Hep A IgM NON-REACTI VE NON-REACT CODY [facility] Comment: For additional information, please refer to http://Centrafuse/faq/NBJ668 (This link is being provided for informational/ educational purposes only.) HepBsAg NON-REACTI VE NON-REACT CODY [facility] Comment: For additional information, please refer to http://Centrafuse/faq/REA152 (This link is being provided for informational/ educational purposes only.) Hep B core IgM NON-REACTI VE NON-REACT CODY [facility] Comment: For additional information, please refer to http://Centrafuse/faq/GUV811 (This link is being provided for informational/ educational purposes only.) Hep C Ab NON-REACTI VE NON-REACT CODY [facility] Comment: HCV antibody was non-reactive. There is no laboratory evidence of HCV infection. In most cases, no further action is required. However, if recent HCV exposure is suspected, a test for HCV RNA (test code 14873) is suggested. For additional information please refer to http://Centrafuse/faq/HJR48p2 (This link is being provided for informational/ educational purposes only.) Blood 05/10/2024 12:3 1 PM AFFIRMATIVE ACTION SPECIALIST 05/10/2024 12:32 PM AFFIRMATIVE ACTION SPECIALIST us Cresencio Shrestha MD LAB MICROBIOLOGY - NERAL ORDERABLES Final Result [facility] [address] [address] * (ABNORMAL) Comprehensive metabolic panel (05/10/2024 12:31 PM AFFIRMATIVE ACTION SPECIALIST) [facility] Glucose 85 65 - 99 mg/dL Lou [...] Lou Hager Blood 05/10/2024 12:3 1 PM AFFIRMATIVE ACTION SPECIALIST 05/10/2024 12:32 PM AFFIRMATIVE ACTION SPECIALIST us Cresencio Shrestha MD LAB BLOOD ORDERABLES Final Result LOU Hager [address] [place] [address] * CT Lung Cancer Screening (01/20/2024 8:36 [...] new median sternotomy wires. us Ascencion Crandall PROTECTION CONSULTANT IMG CT PROCEDURES Final Resu lt * (ABNORMAL) Lipid panel (06/07/2022 3:54 AM AFFIRMATIVE ACTION SPECIALIST) Cholesterol 124 30 - 199 mg/dL [facility] Comment: Interpretive Data Ages < or [...] revised on 2018. Triglycerides 121 <=149 mg/dL [facility] Comment: Interpretive Data Ages < or [...] revised on 2018. HDL 23(L) >=40 mg/dL [facility] Comment: Interpretive Data Ages < or [...] on 2018. LDL, calculated 77 <=129 mg/dL [facility] Comment: Interpretive Data Ages < or [...] revised on 2018. Non-HDL Cholesterol 101 mg/dL [facility] Comment: Interpretive Data Ages < or [...] last revised on 2018. Chol/HDL ratio 5 [facility] Blood 06/07/2022 3:54 AM AFFIRMATIVE ACTION SPECIALIST 06/07/2022 4:04 AM AFFIRMATIVE ACTION SPECIALIST us Samina Ruby MD LAB BLOOD ORDERABLES Final Res ult [facility] [address] Department [place] [address] * (ABNORMAL) Hemoglobin A1c (06/06/2022 12:38 AM AFFIRMATIVE ACTION SPECIALIST) Hgb A1C 6.3(H) 4.0 - 5.6 % [facility] Estimated Average Glucose 134 mg/dL [facility] Comment: The ADA recommends reporting an estimated Average Glucose (eAG) with all Hemoglobin A1c results using the equation derived from a study of 507 normal and diabetic adults. Minority populations were underrepresented and children were not included. (Diabetes Care 31:7769-9739, 2008). The eAG is not equivalent to a fasting glucose. Blood 06/06/2022 12:3 8 AM AFFIRMATIVE ACTION SPECIALIST 06/06/2022 1:00 AM AFFIRMATIVE ACTION SPECIALIST us Samina Ruby MD LAB BLOOD ORDERABLES Final Res ult [facility] [address] Department [place] [address] from Last 3 Months or Most Recently Relevant to Health Maintenance Insurance [id number] [facility] MEDICARE ADVANTAGE [facility] Address: [address] [address] [place] [address] [employer] [facility] Address: [facility] [address] [place] [address] [employer] [facility] MEDICARE ADVANTAGE [facility] Address: [address] [address] [place] [address] [employer] Advance Directives For more information, please contact: [phone] Documents on File Type Date Recorded Patient Steam Fitter Supervisor Expl anation ADVANCE DIRECTIVE 07/04/2024 9:30 AM Power of Oil Field [employer] ADVANCE DIRECTIVE 08/12/2022 11:16 AM RAVI R OF WATER METER INSTALLER-MEDICAL ADVANCE DIRECTIVE 06/08/2022 4:40 PM Power of Oil Field [employer] * Full Code (Latest Code Status on File) Date Activated Date Inactivated Comments 06/23/2023 8:46 AM 06/24/2023 5:04 AM * Full Code Date Activated Date Inactivated Comments 06/15/2022 2:44 PM 06/25/2022 7:43 PM * Full Code Date Activated Date Inactivated Comments 06/08/2022 6:49 PM 06/15/2022 2:44 PM * Full Code Date Activated Date Inactivated Comments 06/06/2022 12:01 AM 06/08/2022 6:49 PM Care Teams Studio Grip Relationship Specialty Start Date End Date Ascencion Crandall NP PCP - General Internal Medicine 09/19/21 Mable Castaneda MD [address] [place] [address] Consulting Physician Cardiovascular Disease 06/12/22 Haim Clement MD [address] [place] [address] Consulting Physician Infectious Diseases 06/25/22 Sunil Rivera Jr., MD [address] [place] [address] Consulting Physician Cardiovascular Disease 06/25/22 Rui Brizuela MD [address] [place] [address] Consulting Physician Cardiothoracic Surgery 06/25/22 Eddi Jimé[place] [address] [facility] [address] [place] [address] Nurse Practitioner Pain Management 03/22/24
--- OUTSIDE RECORDS SUMMARY | 2024-09-18 17:53 | XMS_ITS | CONTINUITY OF CARE DOCUMENT ---
Author Name debbie lewis Address Unknown Organization [facility] Address [address] [place] [address] Phone [phone] Care Team Providers Care Buffing Machine Operator Name Role Phone Miguel LEE, Sunil Unavailable [phone] BOYD GRAF MD Unavailable CIARRA CUNNINGHAM Unavailable PROBLEMS Condition Status Date Provider Notes S/P Dual chamb PCM - Biotron ik ( MRI Safe) active Maryjo Hicks Diabetes, Type 2 active Sunil Rivera MD Hyperlipidemia active Sunil Rivera MD Hypertension active Sunil Rivera MD AV block, complete active Sunil Rivera MD Aortic valve replacement active Sunil pena MD Endocarditis active Sadia Ventimiglia [employer]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[employer]ER Atrial fib paroxysmal active Sadia Ventimi glia [employer] Hyponatremia active Sadia Ventimiglia [employer] ENCOUNTERS Date Type Provider Location Encounter Diag nosis - In-person encounter Office Visit Sunil Rivera MD [facility] - In-person encounter Office Visit Sunil Rivera MD [facility] EndocarditisAtrial fib paroxysmalHyponatremia - In-person encounter Office Visit Sunil Rivera MD [facility] - In-person encounter Office Visit Sunil Rivera MD [facility] Diabetes, Type 2HyperlipidemiaHypertensionA V block, completeAortic valve replacement VITAL SIGNS Date Observation Value Provider Body Mass Index (Ratio) 26.91 kg/m2 Kalpesh Peacock [employer]ST[employer] F[employer] blood pressure, diastolic 68 mm[Hg] Ja rret blood pressure, systolic 102 mm[Hg] Jar ret pulse rate 92 /min Shaun blood pressure, cuff size regular Ja rret respiratory rate E&M 16 /min oxygen saturation, oximetry 96 % weight E&M 177 [lb_av] Shaun y height E&M 68 [in_i] Shaun Body Mass Index (Ratio) 30.10 kg/m2 [facility] ntha Cranmer blood pressure, cuff size [...] Aguilar blood pressure, diastolic 75 mm[Hg] Mukul [facility] Jeff blood pressure, systolic 120 mm[Hg] Kirt [...] by mouth twice a day Sadia Ventimiglia [employer] metoprolol tartrate 25 mg tablet active Take 1/2 tablet by mouth twice a day Sadia Ventimiglia [employer] metoprolol tartrate 25 mg tablet completed TAKE 1/2 TABLET BY MOUTH TWICE DAILY - Sadia Ventimiglia [employer] amiodarone 200 mg tablet completed Take 1 tablet by mouth once a day - Sadia Ventimiglia [employer] metoprolol tartrate 25 mg tablet completed 1/2 tablet twice a day - Glendy Peck atorvastatin 10 mg tablet active TAKE 1 TABLET DAILY Sadia Ventimiglia [employer] Calcium 500 completed - Sadia Ventimiglia [employer] F[employer] docusate sodium 100 mg capsule active Pamela Tomlinson eslicarbazepine 200 mg tablet active Pamela Tomlinson fluticasone furoate-vilanterol 100-25 mcg/dose blister with device active Pamela Tomlinson senna 8.6 mg tablet active Pamela Tomlinson sodium chloride 1,000 mg tablet,soluble active Pamela Tomlinson triamcinolone acetonide 0.1% cream completed - Sadia Ventimiglia [employer] Belsomra 20 mg tablet completed - Sadia Ventimiglia [employer] F[employer]ER Vimpat 100 mg tablet active Pamela Tomlinson oxycodone 5 mg tablet completed - Sadia Ventimiglia [employer] F[employer]ER pregabalin 100 mg capsule [facility] miconazole nitrate 2% cream completed - Sadia Ventimiglia [employer] F[employer] morphine unspecified unspecified active Pamela Tomlinson amiodarone unspecified unspecified completed - Sunil Rivera MD apixaban 5 mg tablet completed 1 tablet by mouth twice a day - Sadia Ventimiglia [employer] F[employer] methocarbamol 750 mg tablet active Sadia Ventimiglia [employer] F[employer] ziprasidone HCl 80 mg capsule active Pamela Tomlinson vilazodone 40 mg tablet active Pamela Tomlinson benztropine 1 mg tablet active Pamela Tomlinson albuterol sulfate 2.5 mg/3 mL (0.083 %) solution for nebulization completed - Sadia Ventimiglia [employer] albuterol sulfate 90 mcg/actuation HFA aerosol inhaler active Pamela Tomlinson esomeprazole magnesium 40 mg capsule,delayed release(DR/EC) active Pamela Tomlinson SOCIAL HISTORY Date Observation Value Provider personal history of marijuana use no Sadia Ventimiglia [employer] F[employer] drug use no Sadia Ventimig ariane [employer]ER alcohol use no Sadia Ventimig ariane [employer] chewing tobacco use Current Sadia 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 smoking, 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 Sadia Ventimi glia [employer] smoking status Former smoker Sadia Venti miglia [employer] personal history of marijuana use no Sadia Ventimiglia [employer] F[employer]ER drug use no Sadia Ventimig ariane [employer] F[employer] alcohol use no Sadia Ventimig ariane [employer] chewing tobacco use Current Sadia 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 smoking, 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 Sadia Ventimi glia [employer] smoking status Former smoker Sadia Venti miglia [facility] social history reviewed E&M revi ewed - no changes required Sunil Rivera MD chewing tobacco use [facility], 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 Sunil gaspar [...] Payer name Policy type / Coverage type [place] red republican ID [facility] Other AARP MEDICARE ADVANTAGE ([facility] COMPLETE PPO) Other [id number] HEALTHCARE AND FAMILY SERVICES Medicaid 1 [id number] ADVANCE DIRECTIVES Name Date DISCUSSED - NO DECISION MADE TREATMENT PLAN Date Name Performer [id number],S, Sunil Ramada n [id number],S, Sunil Ramada n [id number],S, Sunil Ramada n [id number],S, Sunil Ramada n [id number],B, Sunil Ramada n [id number],N, Sunil Ramada n [id number],S, Sunil Ramada n [id number],S, Sunil Ramada n [id number],S,S/P PPM Sunil Amayan [place] [facility] Cardiology: H is updated medication list for this problem includes: Atorvastatin 10 Mg Tablet (Atorvastatin) ..... [facility] Cardiology:BP 102/68 T he following medications were removed from the medication list: Metoprolol Tartrate 25 Mg Tablet (Metoprolol tartrate) ..... Take 1/2 tablet by mouth twice daily & #13;His updated medication list for this problem includes: Metoprolol Tartrate 25 Mg Tablet (Metoprolol tartrate) ..... Take 1/2 tablet by mouth twice a day [facility] Cardiology:rhythm re gular on exam P PM [...] 1/2 tablet by mouth twice a day Gibbs Eduin [facility] Cardiology:echo ronak ier this year showed normal appearing bioprosthetic AVR W ill continue to monitor Sadia Ventimiglia [facility] Cardiology:of unclea r etiology n o signs of volume overload t his is chronic and follows with renal Gibbs Mervatmiglia [facility] Cardiology Gibbs Ventimigl ia [facility] Cardiology: H is updated medication list for this problem includes: Atorvastatin 10 Mg Tablet (Atorvastatin) Gibbs Mervatmiglia [facility] Cardiology:none note d on in office device check today w ill stop amiodarone and continue to monitor The following medications were removed from the medication list: Amiodarone 200 Mg Tablet (Amiodarone) ..... Take 1 tablet by mouth once a day His updated medication list for this problem includes: Metoprolol Tartrate 25 Mg Tablet (Metoprolol tartrate) ..... 1/2 tablet twice a day Gibbs Luanaglsandra [facility] Cardiology:History o f endocarditis in 06/2022 s/p aortic valve replacement h e completed therapy as directed e cho today without vegetation Gibbs Mervatmiglia [facility] Cardiology:echo toda y showed normal appearing bioprosthetic valve E F normal W ill return in 6 mos or sooner if needed. Sadiasebastián Denny [facility] Cardiology Sunil Rivera MD Cardiology Sunil Rivera MD Cardiology Sunil Rivera MD Cardiology Sunil Rivera MD Cardiology Sunil Rivera MD Cardiology Sunil Rivera MD Cardiology Sunil Rivera MD Cardiology Sunil Rivera MD Cardiology:S/P PPM Sunil Rivera MD Date Name Complete Echo
--- OUTSIDE RECORDS SUMMARY | 2024-09-18 17:53 | XMS_ITS | Clinical Summary ---
Author Organization [facility] Address [address] [place] [address] Care Team Providers Care Sketch Maker Name Role Phone CrandallAscencion APRN-ENVIRONMENTAL COMPLIANCE MANAGER Primary Care Provider Source Comments [facility],non-owned Affiliates and Associated Physician Practices is amultiple site organization consisting of ambulatory clinics and hospital sitesin [place], [place], [place] and [place]. This disclosure is being madepursuant to the Care Everywhere program and may not contain all information available regarding this patient. Last updated 18.[facility] Allergies Active Allergy Reactions Criticality Noted Date [...] 01/04/20 24 Active Blood Glucose Monitoring Suppl (Plum Verio Flex System) w/Device KIT 1 kit [...] Active Problems Problem Noted Date Diagnosed Date correction (current) use of opiate analgesic 03/24 Muscle [...] on file Legal Sex Male 9:21 AM FITTING ROOM CHECKER Gender Identity Not on file Sexual Orientation [...] Oxygen Concentration 98% 05/31/2018 5 :02 PM FITTING ROOM CHECKER Weight 84.8 kg (187 lb) 08/27/2020 11:21 AM CDT Height 175.3 cm (5' 9 ) 04/02/2020 10:48 AM FITTING ROOM CHECKER Body Mass Index 27.62 04/02/2020 10:48 AM FITTING ROOM CHECKER Plan of Treatment Health Maintenance Due Date [...] Inactivated Comments 11/13/2010 11:51 AM Care Teams Sketch Maker Relationship Specialty Start Date End Date Ascencion Crandall, ORIENTAL RUG STRETCHER-ENVIRONMENTAL COMPLIANCE MANAGER [address] [place] [address] PCP - General Nurse Practitioner Family 04/06/24
--- OUTSIDE RECORDS SUMMARY | 2024-09-18 17:53 | XMS_ITS | Clinical Summary ---
Author Organization [facility] Address [address] [place] [address] Care Team Providers Care Cashier Assistant Name Role Phone sAcencion Crandall NP Primary Care Provider [phone] Mable Castaneda MD Unavailable [phone] Haim Clement MD Unavailable Miguel Jara MD, Sunil P. Unavailable [phone] Rui Brizuela MD Unavailable [phone] Eddi Jiménez NP Unavailable [phone] Allergies Active Allergy Reactions Criticality Noted Date [...] topically daily Active OneTouch Verio Flex meter [facility] 05/29/19 23 Active cholecalciferol (VITAMIN D-3) 5,000 unit capsuleIndicati ons:Vitamin D Deficiency Take 5,000 Units by mouth daily Active OneTouch Delica Plus Lancet 33 gauge [facility] 05/29/19 23 Active triamcinolone (KENALOG) 0.1 % [...] ns:hypothyroidi sm Take 100 mcg by mouth piano regulator before breakfast 06/18/19 24 Active mepolizumab (Nucala) [...] 08/07/2020 Assessment & Plan (05/09/2024 4:57 PM BOUFFANT CURTAIN MACHINE TENDER): The patient is presenting for follow up [...] been having difficulties obtaining a ride to [facility]. We will reach out to our [...] 09/19/2019 Assessment & Plan (05/09/2024 4:57 PM BOUFFANT CURTAIN MACHINE TENDER): The patient has chronic pain in his [...] Type Department Care Team Description 09/04/2024 Telephone [facility] [address] [place] [phone] Michaela Lynch RN 08/16/2024 Telephone [facility] [address] [place] [phone] Jerri Segura LPN 08/16/2024 Telephone [facility] [address] [place] [phone] Cresencio Shrestha MD Med Management (Modafinil 100mg) 08/15/2024 Telephone [facility] [address] [place] [phone] Jerri Segura LPN 08/02/2024 12:00 PM CDT Home Care Visit [address] [place] [address] Marie Pleitez, PT PT OASIS DISCHARGE 08/01/2024 Orders Only [facility] ADMIT [address] [place], [place] [id number] Samina Ruby MD 08/01/[address] [place] [address] Radha Severino RN 07/27/2024 1:30 PM BOUFFANT CURTAIN MACHINE TENDER Home Care Visit [address] [place] [address] Jennifer Brewer, OT OT REASSESSMENT 07/27/2024 Home Care Visit [address] [place] [address] Harvinder Neil, RN [facility] CASE COMMUNICATION 07/26/2024 Orders Only [facility] [address] [facility] [address] [place] [address] Cresencio Shrestha MD 07/24/2024 12:30 PM BOUFFANT CURTAIN MACHINE TENDER Home Care Visit [address] [place] [address] Marie Pleitez, PT PT HOME VISIT 07/21/2024 Home Care Visit [address] [place] [address] Rosina Latham, OT CASE COMMUNICATION 07/18/2024 Home Care Visit [address] [place] [address] Rosina Latham, OT CASE COMMUNICATION 07/17/2024 1:15 PM BOUFFANT CURTAIN MACHINE TENDER Home Care Visit [address] [place] [address] Marie Pleitez, PT PT REASSESSMENT 07/13/2024 Home Care Visit [address] [place] [address] Rosina Latham, OT CASE COMMUNICATION 07/12/2024 Home Care Visit [address] [place] [address] Marie Pleitez, PT TELEPHONE ENCOUNTER 07/07/2024 10:45 AM BOUFFANT CURTAIN MACHINE TENDER Home Care Visit [address] [place] [address] Marie Pleitez, PT PT HOME VISIT 07/06/2024 1:15 PM BOUFFANT CURTAIN MACHINE TENDER Home Care Visit [address] [place] [address] Annel Colindres COTA OT HOME VISIT 07/03/2024 1:00 PM BOUFFANT CURTAIN MACHINE TENDER Home Care Visit [address] [place] [address] Marie Pleitez, PT PT HOME VISIT 06/30/2024 3:00 PM BOUFFANT CURTAIN MACHINE TENDER Home Care Visit [address] [place] [address] Rosina Latham, OT OT HOME VISIT 06/30/2024 1:15 PM BOUFFANT CURTAIN MACHINE TENDER Home Care Visit [address] [place] [address] Marie Pleitez, PT PT HOME VISIT 06/28/2024 12:30 PM BOUFFANT CURTAIN MACHINE TENDER Home Care Visit [address] [place] [address] Marie Pelitez, PT PT HOME VISIT 06/27/2024 2:30 PM BOUFFANT CURTAIN MACHINE TENDER Home Care Visit [address] [place] [address] Harvinder Neil [facility] PRODUCT DEVELOPMENT SCIENTIST INITIAL EVAL 06/27/2024 Home Care Visit [address] [place] [address] Harvinder Neil [facility] PRODUCT DEVELOPMENT SCIENTIST DISCIPLINE DISCHARGE 06/26/2024 Home Care Visit [address] [place] [address] Mary Yu, ZAY NURSE MED RECON FOR THERAPY 06/24/2024 Home Care Visit [address] [place] [address] Harvinder Neil RN [facility] CASE COMMUNICATION 06/23/2024 2:00 PM BOUFFANT CURTAIN MACHINE TENDER Home Care Visit [address] [place] [address] Rosina Latham, OT OT INITIAL EVALUATION 06/23/2024 Home Care Visit [address] [place] [address] Rosina Latham, OT CASE COMMUNICATION 06/22/2024 1:00 PM BOUFFANT CURTAIN MACHINE TENDER Home Care Visit [address] [place] [address] Marie Pleitez, PT PT OASIS START OF CARE 06/22/2024 Home Care Visit [address] [place] [address] Marie Pleitez, PT TELEPHONE ENCOUNTER 06/22/2024 Plan of Care Documentation [address] [place] [address] 06/21/2024 Telephone [facility] [address] [facility] [address] [place] [address] Jolene Ford RP 06/20/2024 Home Care Visit [facility] [address] [place] [id number] Marie Pleitez, PT TELEPHONE ENCOUNTER from Last 3 Months Immunizations Immunization Administration Dates Next Due Hep A, Adult 11/21/1989,05/24/1989 Hep B, Adolescent or Pediatric 11/21/1992,1992,05/24/1992 Influenza, Quadrivalent, Spl it, Intramuscular 02/21/2021,03/06/2018 Playtika (J&J) SARS-CoV-2 Vaccination 07/30/2020 Pneumococcal Conjugate PCV [...] week 06/08/2022 How often do you attend [facility] or [facility] services? 1 to 4 times per year [...] on file Legal Sex Male 7:00 AM BOUFFANT CURTAIN MACHINE TENDER Gender Identity Not on file Sexual Orientation Not on file Obstetrics History Last Filed Vital Signs Vital Sign Reading Time Taken Comments Blood Pressure 124/78 07/27/2024 1:47 PM BOUFFANT CURTAIN MACHINE TENDER Pulse 78 07/27/2024 1:47 PM BOUFFANT CURTAIN MACHINE TENDER Temperature 37.4 C (99.3 F) 07/27/2024 1:47 PM BOUFFANT CURTAIN MACHINE TENDER Respiratory Rate 18 07/27/2024 1:47 PM BOUFFANT CURTAIN MACHINE TENDER Oxygen Saturation 97% 07/27/2024 1:47 PM BOUFFANT CURTAIN MACHINE TENDER Inhaled Oxygen Concentration - - Weight 71.2 kg (157 lb) 05/09/2024 3:24 PM BOUFFANT CURTAIN MACHINE TENDER Height 175.3 cm (5' 9.02 ) 05/22/2024 10:[address] Body Mass Index 23.18 05/09/2024 3:24 PM BOUFFANT CURTAIN MACHINE TENDER Plan of Treatment Health Maintenance Due Date [...] Completed 05/10/2024 Medical Devices Implanted Type Area Survey Rodman Device Identifier Shelf Expiration Date Model / Serial / Lot [employer] Solia S 53cm Steroid Elute Bipolar Active Fixation Endocardial [id number] - [id number] - [id number] Implanted:Qty: 1 on 06/15/2022 by Sunil Rivera Jr., MD at [facility] Lead Right: Ventricle [employer] [id number] 05/23/2024 [id number] / [id number] / [employer] Solia S 45cm Bipolar Active Fixation Lead Pacing Steroid Eluting [id number] - [id number] - [id number] Implanted:Qty: 1 on 06/15/2022 by Sunil Rivera Jr., MD at [facility] Lead Right: Atria [employer] Inc [id number] 03/23/2024 [id number] / [id number] / Biot[employer] Edora Promri 75d45v8.5mm Dual Chamber Rate Adaptive Unipolar Bipolar [id number] - [id number] - [id number] Implanted:Qty: 1 on 06/15/2022 by Sunil Rivera Jr., MD at [facility] Pacemaker Left: Chest Wall [employer] Inc [id number] 10/22/2023 [id number] / [id number] / B[employer] Inspiris Resilia Leaflet Aortic Valve 25mm [id number] - [id number] - [id number] Implanted:Qty: 1 on 06/09/2022 by Rui Brizuela MD at [facility] N/A: Heart [employer] 06/11/2025 [id number] / [id number] / Explanted Type Area Survey Rodman Device Identifier Shelf Expiration Date Model / Serial / Lot Teleflex [employer] Inc Weck Horizon 6 Cartridge Ligate Triangulate Cross Section Heart [id number] - [id number] Explanted:Qty: 1 on 06/09/2022 at [facility] N/A: Chest [employer] [id number] / / Procedures Procedure Name Priority Date/Time Associated Diagnosis Comments HEPATITIS PANEL, ACUTE Routine 05/10/2024 12:31 PM BOUFFANT CURTAIN MACHINE TENDER Multiple sclerosis (HCC) COMPREHENSIVE METABOLIC PANEL Routine 05/10/2024 12:31 PM BOUFFANT CURTAIN MACHINE TENDER Multiple sclerosis (HCC) CT LUNG CANCER SCREENING Schedule Routine, Read Routine (OP Routine) 01/20/2024 8:36 AM CDT Personal history of nicotine dependence LIPID PANEL Timed 06/07/2022 3:54 AM BOUFFANT CURTAIN MACHINE TENDER HEMOGLOBIN A1C Routine 06/06/2022 12:38 AM BOUFFANT CURTAIN MACHINE TENDER from Last 3 Months or Most Recently Relevant to Health Maintenance Results * Hepatitis panel, acute Blood (05/10/2024 12:31 PM BOUFFANT CURTAIN MACHINE TENDER) Hep A IgM NON-REACTI VE NON-REACT CODY [facility] Comment: For additional information, please refer to http://EZBOB/faq/CMO267 (This link is being provided for informational/ educational purposes only.) HepBsAg NON-REACTI VE NON-REACT CODY [facility] Comment: For additional information, please refer to http://EZBOB/faq/FYL618 (This link is being provided for informational/ educational purposes only.) Hep B core IgM NON-REACTI VE NON-REACT CODY [facility] Comment: For additional information, please refer to http://EZBOB/faq/WFD557 (This link is being provided for informational/ educational purposes only.) Hep C Ab NON-REACTI VE NON-REACT CODY [facility] Comment: HCV antibody was non-reactive. There is no laboratory evidence of HCV infection. In most cases, no further action is required. However, if recent HCV exposure is suspected, a test for HCV RNA (test code 60000) is suggested. For additional information please refer to http://EZBOB/faq/WKW67q1 (This link is being provided for informational/ educational purposes only.) Blood 05/10/2024 12:3 1 PM BOUFFANT CURTAIN MACHINE TENDER 05/10/2024 12:32 PM BOUFFANT CURTAIN MACHINE TENDER us Cresencio Shrestha MD LAB MICROBIOLOGY - NERAL ORDERABLES Final Result [facility] [address] [address] * (ABNORMAL) Comprehensive metabolic panel (05/10/2024 12:31 PM BOUFFANT CURTAIN MACHINE TENDER) Glucose 85 65 - 99 mg/dL [facility] Comment: Fasting reference interval BUN [...] [facility] Blood 05/10/2024 12:3 1 PM BOUFFANT CURTAIN MACHINE TENDER 05/10/2024 12:32 PM BOUFFANT CURTAIN MACHINE TENDER us Cresencio Shrestha MD LAB BLOOD ORDERABLES Final Result [facility] [address] [place] [address] * CT Lung Cancer Screening (01/20/2024 8:36 [...] new median sternotomy wires. us Ascencion Crandall PAVER OPERATOR IMG CT PROCEDURES Final Resu lt * (ABNORMAL) Lipid panel (06/07/2022 3:54 AM BOUFFANT CURTAIN MACHINE TENDER) Cholesterol 124 30 - 199 mg/dL [facility] Comment: Interpretive Data Ages < or = [...] revised on 2018. Triglycerides 121 <=149 mg/dL [facility] Comment: Interpretive Data Ages < or = [...] revised on 2018. HDL 23(L) >=40 mg/dL [facility] Comment: Interpretive Data Ages < or = [...] on 2018. LDL, calculated 77 <=129 mg/dL [facility] Comment: Interpretive Data Ages < or = [...] revised on 2018. Non-HDL Cholesterol 101 mg/dL [facility] Comment: Interpretive Data Ages < or = [...] last revised on 2018. Chol/HDL ratio 5 [facility] Blood 06/07/2022 3:54 AM BOUFFANT CURTAIN MACHINE TENDER 06/07/2022 4:04 AM BOUFFANT CURTAIN MACHINE TENDER us Samina Ruby MD LAB BLOOD ORDERABLES Final Res ult [facility] [address] [place] [address] * (ABNORMAL) Hemoglobin A1c (06/06/2022 12:38 AM BOUFFANT CURTAIN MACHINE TENDER) Hgb A1C 6.3(H) 4.0 - 5.6 % [facility] Estimated Average Glucose 134 mg/dL [facility] Comment: The ADA recommends reporting an estimated Average Glucose (eAG) with all Hemoglobin A1c results using the equation derived from a study of 507 normal and diabetic adults. Minority populations were underrepresented and children were not included. (Diabetes Care 31:2718-0557, 2008). The eAG is not equivalent to a fasting glucose. Blood 06/06/2022 12:3 8 AM BOUFFANT CURTAIN MACHINE TENDER 06/06/2022 1:00 AM BOUFFANT CURTAIN MACHINE TENDER us Samina Ruby MD LAB BLOOD ORDERABLES Final Res ult [facility] [address] [place] [address] from Last 3 Months or Most Recently Relevant to Health Maintenance Insurance IDPA [facility] ADV[facility] Address: [address] [address] [place] [address] IDPA [facility] MED[facility] ADVANTAGE [facility] Address: [facility] [address] [place] [address] [facility] MED[facility] ADVANTAGE [facility] Address: [address] [address] [place] [address] IDPA Advance Directives For more information, please contact: [phone] Documents on File Type Date Recorded Patient Metal Forger'S Assistant Expl anation ADVANCE DIRECTIVE 07/04/2024 9:30 AM Power of Regional Engagement Consultant-Medical ADVANCE DIRECTIVE 08/12/2022 11:16 AM RAVI R OF PRINTER'S ASSISTANT-MEDICAL ADVANCE DIRECTIVE 06/08/2022 4:40 PM Power of Regional Engagement Consultant-Medical * Full Code (Latest Code Status on File) Date Activated Date Inactivated Comments 06/23/2023 8:46 AM 06/24/2023 5:04 AM * Full Code Date Activated Date Inactivated Comments 06/15/2022 2:44 PM 06/25/2022 7:43 PM * Full Code Date Activated Date Inactivated Comments 06/08/2022 6:49 PM 06/15/2022 2:44 PM * Full Code Date Activated Date Inactivated Comments 06/06/2022 12:01 AM 06/08/2022 6:49 PM Care Teams Cashier Assistant Relationship Specialty Start Date End Date Ascencion Crandall NP PCP - General Internal Medicine 09/19/21 Mable Castaneda MD [address] [place] [address] Consulting Physician Cardiovascular Disease 06/12/22 Haim Clement MD [address] [facility] [address] [place] [address] Consulting Physician Infectious Diseases 06/25/22 Sunil Rivera Jr., MD [address] [place] [address] Consulting Physician Cardiovascular Disease 06/25/22 Rui Brziuela MD [address] [place] [address] Consulting Physician Cardiothoracic Surgery 06/25/22 Eddi Jimé[place] [address] [facility] [address] [place] [address] Nurse Practitioner Pain Management 03/22/24
--- OUTSIDE RECORDS SUMMARY | 2024-09-18 17:53 | XMS_ITS | Encounter Summary ---
Author Organization [facility] Address [address] [place] [address] Care Team Providers Care Transport Tech Name Role Phone Philip Burrell MD Primary Care Provider [phone] Ascencion Crandall APRN-ALUMNI COORDINATOR Primary Care Provider Encounter Details Date Type Department Care Team (Late st Contact Info) Description 02/01/2024 Telephone Pending sale to [facility] - Anesthesiology [address] [place] [address] Rui Whitten, DO [address] [place] [address] Social History Tobacco Use Types [...] on file Legal 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 [id number] PCP - General Nurse Practitioner Family 04/06/24 documented as of this encounter
--- OUTSIDE RECORDS SUMMARY | 2024-09-18 17:53 | XMS_ITS | Clinical Summary ---
Author Organization [facility] Address [address] [address] Care Team Providers Care Wrapper Cashier Name Role Phone Cr[facility]all[facility]encion [facility] Primary Care Provider [phone] Social History Tobacco Use Types Packs/Day Years [...] to 49 Years) Discontinued 02/25/2021, 02/21/2020 Insurance [facility] Medicare Medicaid [place] Care Teams Wrapper Cashier Relationship Specialty Start Date End Date Ascencion Crandall, SUEDE CLEANER-BC [address] [place] [address] PCP - General Nurse Practitioner 03/04/22
== END 2024-09-18 16:31 | disposition left against medical advice (07) ==
PROVIDERS: Emergency Provider Emergency Medicine
DX: I48.91 Unspecified atrial fibrillation (principal); Z79.01 Long term (current) use of anticoagulants
CPT/HCPCS: 93005; 99199